=== PATIENT | male | born 1930 | race Caucasian/White ===

== ENCOUNTER 2016-09-12 22:13 | Observation (INO) ==
[2016-09-12] MEDS ORDERED: Ipratropium/Albuterol Neb 3 ML IH ONE (22:28)
--- NOTE | 2016-09-12 22:29 | Emergency Department Note ---
Disposition Clinical Impression: Renal insufficiency, COPD exacerbation, Gout, Peripheral edema Disposition: Admitted As Inpatient Condition: Good Time of Disposition: 00:37 (jerrell cespedes [facility]) SOB HPI - General Chief Complaint: ED Shortness of Breath/Dyspnea Stated Complaint: SOB, feet hurting Time Seen by Provider: 09/12/16 22:30 Source: patient Mode of arrival: ambulatory Limitations: no limitations Nursing Notes Reviewed: Yes Vital Signs Reviewed: Yes - History of Present Illness She comes in complaining of multitude of complaints one is complaining of shortness of breath unable to catch his breath states he feels like is drowning in his lungs he denies any blurred vision double vision loss vision as a numbness tingling weakness but that he states he feels like he is walking or marshmallows his Bilateral lower extremity edema in addition he has got a right great toe metatarsophalangeal joint that is red hot tenderness such swollen with little bit of red streaking up the leg he denies any knee or hip pain but has ankle pain and swelling and edema and swelling that extends up into the cast but it is symmetrical he denies any recent cough cold of flulike symptoms numbness tingling weakness recent weight gain or weight loss Pt Subjective Complaint: shortness of breath Onset (ago): hour(s) (4) Context: other (increase in leg edema) Severity: moderate Consistency/Duration: constant, gradually worsening Improves with: oxygen, rest Worsens with: exertion, movement Known history of: COPD, congestive heart failure Associated symptoms: Reports: cough, wheezing, orthopnea, lower extremity pain. Denies: chest pain, pain with inspiration, fever, sputum production, polyuria , polydipsia, parasthesias, palpitations, hemoptysis, diaphoresis, nausea/ vomiting, syncope, abdominal pain, rash, sense of impending doom Treatment prior to arrival: oxygen Cough present: No Sputum production: No - Related Data Home Medications Medication Instructions Recorded Confirmed Albuterol Sulfate [Albuterol 2 puff IH QID PRN 07/30/15 09/12/16 Inhaler] Apixaban [Eliquis] 5 mg PO DAILY 07/30/15 09/12/16 Aspirin [Adult Low Dose Aspirin EC] 81 mg PO DAILY 07/30/15 09/12/16 Duloxetine HCl [Cymbalta] 60 mg PO DAILY 07/30/15 09/12/16 Fluticasone Propionate [Flovent 250 mcg IH BID 07/30/15 09/12/16 Diskus] Glimepiride [Amaryl] 4 mg PO DAILY 07/30/15 09/12/16 Liraglutide [Victoza 2-Apollo] 0.6 mg SQ QDPC 07/30/15 09/12/16 Omeprazole [PriLOSEC] 20 mg PO DAILY 07/30/15 09/12/16 Tiotropium [Spiriva] 18 mcg IH QDPC 07/30/15 09/12/16 Furosemide [Lasix] 20 mg PO DAILY 09/12/16 09/12/16 Previous Rx's Medication Instructions Recorded Lisinopril [Zestril] 10 mg PO DAILY #30 tablet 08/01/15 Allergies Allergy/AdvReac Type Severity Reaction Status Date / Time metformin [From Glucophage] AdvReac See Verified 07/30/15 12:59 Comments All systems ED: reviewed and negative except as stated. Constitutional: Denies: chills, weakness Eyes: Denies: eye pain, eye discharge ENT ED: Denies: ear pain, throat pain Cardiovascular: Reports: dyspnea on exertion, orthopnea. Denies: chest pain, palpitations Respiratory: Reports: cough, wheezes Gastrointestinal: Denies: abdominal pain, nausea Genitourinary: Denies: urgency, dysuria, frequency Musculoskeletal: Denies: back pain, neck pain Integumentary: Denies: rash, abrasion, lesions Neurological: Denies: headache, weakness, numbness Psychiatric: Denies: anxiety, depression Endocrine: Denies: fatigue Hematological/Lymphatic: Denies: easy bleeding Allergic/Immunologic: Denies: facial swelling Past Medical History - Past Medical History Attestation: Yes The following information was validated with the patient. Source: patient, old records reviewed, nursing notes reviewed Medical history: Reports: arthritis, atrial fibrillation, CHF, COPD, diabetes, hyperlipidemia, hypertension, migraine Surgical history: Reports: cholecystectomy Psychiatric history: Reports: no psych history - Social History Smoking Status: Former smoker Smokeless Tobacco Status: No Alcohol use: Reports: none Drug use: Reports: none Physical Exam - General Limitations: no limitations General appearance: alert, in no apparent distress, obese, other (Jovial) - Head Head exam: atraumatic, normocephalic, normal inspection - Eye Eye exam: Present: normal appearance, PERRL, EOMI - ENT ENT exam: normal exam, normal oropharynx, mucous membranes moist, normal external ear exam - Neck Neck exam: Present: normal inspection, full ROM, trachea midline - Chest Chest inspection: Present: normal inspection, symmetric chest wall rise - Respiratory Respiratory exam: Present: normal lung sounds bilaterally, wheezes, prolonged expiratory phase - Cardiovascular Cardiovascular exam: Present: regular rate, normal rhythm, normal heart sounds - Abdominal Exam Abdominal exam: Present: soft, Non-Tender, normal bowel sounds. Absent: mass, pulsatile mass - Expanded Upper Extremity Exam Shoulder exam: Present: normal inspection, full ROM Arm exam: Present: normal inspection, full ROM Elbow exam: Present: normal inspection, full ROM Forearm/Wrist exam: Present: normal inspection, full ROM Hand exam: Present: normal inspection, full ROM Neurosensory exam: Normal: radial nerve, ulnar nerve, median nerve Vascular exam: Normal: capillary refill, radial pulse, ulnar pulse - Expanded Lower Extremity Exam Hip/Pelvis exam: Present: normal inspection, full ROM Upper leg exam: Present: normal inspection, full ROM Knee exam: Present: normal inspection, full ROM Lower leg exam: Present: normal inspection, full ROM, swelling Ankle exam: Present: normal inspection, full ROM, swelling Foot/toe exam: Present: normal inspection, full ROM, swelling 1 - RED hot swollen joint but streaking noted towards and stopping at the ankle from this region 2 - biLateral lower extremity edema 2-3+ pitting Neurovascular/Tendon exam: Absent: motor deficit, sensory deficit, tendon deficit - Back Exam Back exam: Present: normal inspection, full ROM. Absent: muscle spasm - Neurological Exam Neurological exam: Present: alert, oriented X3, CN II-XII intact - Psychiatric Psychiatric exam: Present: normal affect, normal mood - Skin Skin exam: Present: warm, dry, intact, normal color Course Course Narrative: he presents to the emergency room his having difficulty ambulating Hagiank did labs to make sure he did not have congestive heart failure as well as the possible ability of him having gout because of all isolated in the great toe with the laboratory results having come back he is artery received Indocin and some Solu-Medrol which will help both with the COPD as well as with the gout but will also have given him an aerosol treatment the patient showing some improvement will give him some additional [place] admitting for observation and give him a dose of IV antibiotics because the little bit of cellulitis developing in the lower extremities admitted for observation service of Dr. Grey Vital Signs Temperature 99.9 F H 09/12/16 22:16 Pulse Rate 69 09/12/16 22:16 Respiratory Rate 36 09/12/16 22:16 Blood Pressure 224/78 09/12/16 22:16 O2 Sat by Pulse Oximetry 92 L 09/12/16 22:16 Temperature 98.6 F 09/13/16 06:41 Pulse Rate 60 09/13/16 06:41 Respiratory Rate 16 09/13/16 06:41 Blood Pressure 168/67 09/13/16 06:41 O2 Sat by Pulse Oximetry 97 09/13/16 06:41 Oxygen Delivery Oxygen Delivery Nasal Cannula Shortness of Breath/Dyspnea - [facility] Narrative Medical decision making narrative: gout periperal edema celulitis chf - Differential Diagnosis Likely: acute exacerbation of chronic obstructive airways disease - Medical Records Medical records reviewed: Yes I reviewed the patient's medical records. - Lab Data Lab results reviewed: Yes I reviewed the patient's lab results. Result diagrams: 09/13/16 04:52 09/13/16 04:52 Lab Results 09/12/16 09/12/16 09/12/16 Range/Units 22:51 22:51 22:51 WBC 8.7 (4.3-11.1) K/mcL RBC 4.11 L (4.19-5.50) M/mcL Hgb 12.7 L (12.9-16.9) g/dL Hct 37.3 L (37.5-50.1) % MCV 90.8 (83.0-100.0) fL MCH 30.9 (28.0-33.3) pg MCHC 34.0 (31.6-35.5) g/dL RDW 13.0 (11.5-14.5) % Plt Count 294 (140-400) K/mcL MPV 11.5 (9.4-12.4) fL Immature Gran % 0.3 (0-4) % Seg Neutrophils % 74.2 % Lymphocytes % 14.3 % Monocytes % 8.7 % Eosinophils % 2.2 % Basophils % 0.3 % Neutrophils # 6.4 (1.6-8.9) K/mcL Lymphocytes # 1.2 (0.6-4.6) K/mcL Monocytes # 0.8 (0.0-1.3) K/mcL Eosinophils # 0.2 (0.0-0.6) K/mcL Basophils # 0.0 (0.0-0.2) K/mcL Platelet Estimate Normal (Normal) Large Platelets Present A (Not Present) PT 15.0 H (9.4-12.1) Seconds INR 1.4 APTT 35.8 (26.0-36.0) Seconds Sodium 139 (136-145) mEq/L Potassium 4.2 (3.5-4.5) mEq/L Chloride 98 (98-109) mEq/L Carbon Dioxide 29 (19-29) mEq/L BUN 16 (8-26) mg/dL Creatinine 1.41 H (0.72-1.25) mg/dL Est GFR ( Amer) 58 L (> 60) Est GFR (Non-Af Amer) 48 L (> 60) BUN/Creatinine Ratio 11 (6-26) Glucose 208 H (70-99) mg/dL Calculated Osmolality 295 (280-300) Uric Acid 7.9 H (3.5-7.2) mg/dL Calcium 8.9 (8.6-10.8) mg/dL Troponin I (0-0.03) ng/mL B-Natriuretic Peptide (0-100) pg/mL 09/12/16 09/12/16 Range/Units 22:51 22:51 WBC (4.3-11.1) K/mcL RBC (4.19-5.50) M/mcL Hgb (12.9-16.9) g/dL Hct (37.5-50.1) % MCV (83.0-100.0) fL MCH (28.0-33.3) pg MCHC (31.6-35.5) g/dL RDW (11.5-14.5) % Plt Count (140-400) K/mcL MPV (9.4-12.4) fL Immature Gran % (0-4) % Seg Neutrophils % % Lymphocytes % % Monocytes % % Eosinophils % % Basophils % % Neutrophils # (1.6-8.9) K/mcL Lymphocytes # (0.6-4.6) K/mcL Monocytes # (0.0-1.3) K/mcL Eosinophils # (0.0-0.6) K/mcL Basophils # (0.0-0.2) K/mcL Platelet Estimate (Normal) Large Platelets (Not Present) PT (9.4-12.1) Seconds INR APTT (26.0-36.0) Seconds Sodium (136-145) mEq/L Potassium (3.5-4.5) mEq/L Chloride (98-109) mEq/L Carbon Dioxide (19-29) mEq/L BUN (8-26) mg/dL Creatinine (0.72-1.25) mg/dL Est GFR ( Amer) (> 60) Est GFR (Non-Af Amer) (> 60) BUN/Creatinine Ratio (6-26) Glucose (70-99) mg/dL Calculated Osmolality (280-300) Uric Acid (3.5-7.2) mg/dL Calcium (8.6-10.8) mg/dL Troponin I 0.02 (0-0.03) ng/mL B-Natriuretic Peptide 119 H (0-100) pg/mL - Radiology Data Radiology results reviewed: Yes I reviewed the patient's radiology results. ITS Impressions Chest X-Ray 09/12/16 22:27 IMPRESSION: Stable exam. D/ / Hamilton Romero MD / Hamilton Romero MD Interpreting Provider: Hamilton Romero MD - EKG Data EKG attestation: Yes I reviewed and interpreted this EKG. EKG results narrative: Sinus rhythm nonspecific T-wave rate 60 2PR 132 uterus 90 QT 397 [place] II Critical Care Time Critical Care Time: No
[2016-09-12 22:56] LABS: Basophils % 0.3 %; Eosinophils # 0.2 K/mcL (0.0-0.6); Eosinophils % 2.2 %; Hematocrit 37.3 % (37.5-50.1); Hemoglobin 12.7 g/dL (12.9-16.9); Immature Granulocytes % 0.3 % (0-4); Lymphocytes # 1.2 K/mcL (0.6-4.6); Lymphocytes % 14.3 %; Mean Corpuscular Hemoglobin 30.9 pg (28.0-33.3); Mean Corpuscular Volume 90.8 fL (83.0-100.0); Mean Platelet Volume 11.5 fL (9.4-12.4); Monocytes # 0.8 K/mcL (0.0-1.3); Monocytes % 8.7 %; Neutrophils # 6.4 K/mcL (1.6-8.9); Platelet Count 294 K/mcL (140-400); Red Blood Count 4.11 M/mcL (4.19-5.50); Segmented Neutrophils % 74.2 %
[2016-09-12 23:01] LABS: INR 1.4
[2016-09-12 23:04] LABS: Activated Partial Thrombo Time 35.8 Seconds (26.0-36.0)
[2016-09-12 23:30] LABS: Large Platelets Present (Not Present); Platelet Estimate Normal (Normal)
[2016-09-12 23:49] LABS: Calcium 8.9 mg/dL (8.6-10.8); Potassium 4.2 mEq/L (3.5-4.5); Uric Acid 7.9 mg/dL (3.5-7.2)
[2016-09-13] MEDS ORDERED: Ampicillin/Sulbactam 3,000 MG in 0.9 % Sodium Chloride Mini Bag 100 ML IVPB ONE (00:45)
[2016-09-13] MEDS ORDERED: *HR* HYDROcodone/Acet 5/325 mg TABLET PO PRN (01:22)
[2016-09-13] MEDS ORDERED: Ondansetron ODT 4 MG TAB.RAPDIS SL PRN (01:22)
[2016-09-13] MEDS ORDERED: Albuterol 2.5 MG/3 ML NEBULIZER IH PRN (01:22)
[2016-09-13] MEDS ORDERED: *HR* Dextrose 50 % in Water (Syg) 50 ML SYRINGE IVP PRN (01:22)
[2016-09-13] MEDS ORDERED: Dextrose Gel 15 GM PO PRN ×2 (01:22)
[2016-09-13] MEDS ORDERED: Indomethacin 25 MG CAPSULE PO PRN (01:22)
[2016-09-13] MEDS ORDERED: Naloxone 0.4 MG/ML INJ IVP PRN (01:22)
[2016-09-13] MEDS ORDERED: D5% in Water 1,000 ML IVC PRN (01:22)
[2016-09-13] MEDS: Ipratropium/Albuterol Neb 3 ML IH SCH ×2 (04:52→10:41)
[2016-09-13 05:33] LABS: Basophils % 0.4 %; Eosinophils # 0.2 K/mcL (0.0-0.6); Eosinophils % 1.9 %; Hematocrit 32.3 % (37.5-50.1); Immature Granulocytes % 0.4 % (0-4); Lymphocytes # 1.5 K/mcL (0.6-4.6); Lymphocytes % 18.9 %; Mean Corpuscular HGB Conc 34.1 g/dL (31.6-35.5); Mean Corpuscular Hemoglobin 30.6 pg (28.0-33.3); Mean Corpuscular Volume 89.7 fL (83.0-100.0); Mean Platelet Volume 11.4 fL (9.4-12.4); Monocytes # 0.9 K/mcL (0.0-1.3); Monocytes % 11.5 %; Neutrophils # 5.3 K/mcL (1.6-8.9); Platelet Count 252 K/mcL (140-400); Red Cell Distribution Width 12.7 % (11.5-14.5); Segmented Neutrophils % 66.9 %
[2016-09-13] MEDS: Ampicillin/Sulbactam 3,000 MG in 0.9 % Sodium Chloride Mini Bag 100 ML IVPB SCH ×3 (05:36→20:48)
[2016-09-13 05:40] LABS: INR 1.4; Prothrombin Time 15.4 Seconds (9.4-12.1)
[2016-09-13 05:43] LABS: Activated Partial Thrombo Time 32.3 Seconds (26.0-36.0)
[2016-09-13 05:56] LABS: BUN/Creatinine Ratio 12 (6-26); Blood Urea Nitrogen 15 mg/dL (8-26); Calcium 8.4 mg/dL (8.6-10.8); Carbon Dioxide 30 mEq/L (19-29); Chloride 102 mEq/L (98-109); Glucose 151 mg/dL (70-99); Magnesium 1.7 mg/dL (1.6-2.6); Osmolality,Calculated 292 (280-300); Phosphorous 2.3 mg/dL (2.3-4.7); Potassium 3.8 mEq/L (3.5-4.5); Sodium 139 mEq/L (136-145); eGFR For African Americans > 60 (> 60); eGFR For Non-African Americans 57 (> 60)
[2016-09-13] MEDS: Insulin LISPRO 300 UNITS/3 ML VIAL SQ SCH ×3 (07:33→16:52)
[2016-09-13] MEDS: Bumetanide 1 MG/4 ML VIAL IVP SCH ×2 (09:26→16:49)
[2016-09-13 14:39] LABS: Hemoglobin A1C 6.4 %
--- NOTE | 2016-09-13 15:31 | Internal Med History&Physical ---
Date of Encounter: 09/13/16 Time of Encounter: 14:55 Assessment and Plan (1) Gout Current visit: Yes Status: Acute He has been started on IV steroids through emergency room. I will give a dose of colchicine and indomethacin. Allopurinol will be started after the acute inflammation has lessened. Qualifiers: Gout site: toe Gout etiology: unspecified cause Laterality: unspecified laterality Chronicity: acute Qualified Code(s): M10.9 - Gout, unspecified (2) Acute exacerbation of chronic obstructive airways disease Current visit: No Status: Acute He has been started on IV steroids and IV antibiotics. His home regimen will generally be continued otherwise. Further workup be done as needed. (3) CKD (chronic kidney disease) stage 3, GFR 30-59 ml/min Current visit: No Status: Chronic Renal indices will be monitored. (4) Anemia Current visit: No Status: Chronic We will recheck anemia testing in a.m. Qualifiers: Anemia type: unspecified type Qualified Code(s): D64.9 - Anemia, unspecified (5) DM type 2 (diabetes mellitus, type 2) Current visit: Yes Status: Acute Hemoglobin A1c was acceptable at 6.4% today. Continue Amaryl, Victoza and lisinopril Qualifiers: Diabetes mellitus complication status: with kidney complications Diabetes mellitus complication detail: with chronic kidney disease Diabetes mellitus intermediate accountant insulin use: without intermediate accountant use Chronic kidney disease stage: stage 3 (moderate) Qualified Code(s): E11.22 - Type 2 diabetes mellitus with diabetic chronic kidney disease; N18.3 - Chronic kidney disease, stage 3 ( moderate) Internal Medicine - H&P: HPI Chief complaint: Right foot pain, dyspnea Admitted From: Home Plans for Post Hospital Care: Home History of present illness: Mr. Huston is a 86 year old male who came to emergency room stating he had worsening pain in his right foot over the last 3 days. He took Tylenol without relief. He denies any injuries. He also reported increased dyspnea over the past 24-48 hours. There was slight cough but no significant productivity. He was evaluated in emergency room and felt to have exacerbation of COPD and probable acute gout in the right first MTP joint. He was admitted to [facility] floor for ongoing care needs. He was hospitalized last at [facility] September 2015 with exacerbation of COPD. His respiratory history is significant for having smoked from age [age] up to 4 packs per day. He wears oxygen at bedtime and when necessary during the daytime. He has a diagnosis of KIKO but refuses CPAP. 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 His musk skeletal history is significant for DJD but no known previous gout or other bone joint or muscle disorders. Past Med Surg Social Fam HX - Past Medical History Medical history: arthritis, atrial fibrillation, CHF, COPD, diabetes, hyperlipidemia, hypertension, migraine Psychiatric history: no psych history - Past Surgical History Surgical History: cholecystectomy - Social History Smoking Status: Former smoker Smokeless Tobacco Status: No Alcohol use: none Drug use: none - Family History Mother Living Status: Hx Family Cardiac Disorders: Yes ([place]) Hx Family Endocrine Disorder: Yes (DM2) Internal Medicine - H&P: Meds Albuterol Sulfate [Albuterol Inhaler] 2 puff IH QID PRN 07/30/15 [History] Apixaban [Eliquis] 5 mg PO DAILY 07/30/15 [History] Aspirin [Adult Low Dose Aspirin EC] 81 mg PO DAILY 07/30/15 [History] Duloxetine HCl [Cymbalta] 60 mg PO DAILY 07/30/15 [History] Fluticasone Propionate [Flovent Diskus] 250 mcg IH BID 07/30/15 [History] Glimepiride [Amaryl] 4 mg PO DAILY 07/30/15 [History] Liraglutide [Victoza 2-Apollo] 0.6 mg SQ QDPC 07/30/15 [History] Omeprazole [PriLOSEC] 20 mg PO DAILY 07/30/15 [History] Tiotropium [Spiriva] 18 mcg IH QDPC 07/30/15 [History] Lisinopril [Zestril] 10 mg PO DAILY #30 tablet 08/01/15 [Rx] Furosemide [Lasix] 20 mg PO DAILY 09/12/16 [History] Allergies metformin [From Glucophage] Adverse Reaction (Verified 07/30/15 12:59) See Comments Reaction not known. All Systems PM: A 10-system review of systems was performed and is negative for pertinent findings except as documented above in the HPI. Review of systems: Gen.: His weight has been stable at approximately 106-108 kg kg since his November 2014 [facility] hospitalization. Cardiovascular: He has a history of hypertension. An echocardiogram done 2013 showed diastolic dysfunction but LVEF 55%. There was mild to moderate aortic regurgitation. He claims he had a heart catheter and stress test in 2008 without further intervention recommended. He denies DVT or pulmonary embolus. Respiratory: As per history of present illness GI: He has had remote cholecystectomy. He denies disorders of his liver or exocrine pancreas. : No history of hematuria dysuria or kidney stones. He has CKD stage III and follows with a [place] [facility]. Neurologic: He denies large distribution strokes or seizures. Endocrine: He was diagnosed with DM 2 approximately 2004. He has hyperlipidemia but no known thyroid disease. Hematology/oncology: He denies blood disorders or cancers. He was found to have anemia on emergency room lab work. Anemia testing in the past has showed no factor deficiency . Psychiatric: He denies anxiety depression or other mental health issues Musk skeletal: As per history of present illness - Constitutional Vitals: Temp Pulse Resp BP Pulse Ox 98.0 F 64 16 163/67 96 09/13/16 14:52 09/13/16 14:52 09/13/16 14:52 09/13/16 14:52 09/13/16 14:52 Exam: Gen.: He is a well-developed well-nourished male lying in bed who appears in no severe distress at present time. HEENT: Head is atraumatic and normocephalic. Eyes: EOMI. There is no scleral icterus. Mouth: Mucosa is moist. Neck: Supple and nontender. There is no thyromegaly or adenopathy noted. Heart: Regular without murmurs gallops or ectopics Lungs: No wheezes or crackles are heard. Abdomen: Soft and nontender. No masses or guarding noted. Extremities: There is no cyanosis edema or clubbing noted. Dorsalis pedis and posttibial pulses are 1-2 over 2 bilaterally. He has erythema and pain of the right first MTP joint. There is very minimal erythema but slight pain present at the left first MTP joint. He has mild DJD changes of his hands. Neurologic: Mental status: He is talkative and a good historian. Cranial nerves : Smile is symmetric. Forehead wrinkles bilaterally. Tongue protrudes midline. EOMI. Motor: There is no pronator drift. Cerebellar: Finger to nose is intact bilaterally. Skin: Warm and dry Internal Med - H&P Results - Labs CBC & Chem 7: 09/13/16 04:52 09/13/16 04:52 Labs: Short CBC 09/13/16 Range/Units 04:52 WBC 8.0 (4.3-11.1) K/mcL Hgb 11.0 L D (12.9-16.9) g/dL Hct 32.3 L (37.5-50.1) % Plt Count 252 (140-400) K/mcL Neutrophils # 5.3 (1.6-8.9) K/mcL BMP 09/13/16 04:52 Sodium 139 Potassium 3.8 Chloride 102 Carbon Dioxide 30 H BUN 15 Creatinine 1.21 Glucose 151 H Calcium 8.4 L
[2016-09-13] MEDS: PredniSONE 20 MG TABLET PO SCH (16:50)
[2016-09-13] MEDS ORDERED: Colchicine 0.6 MG TABLET PO ONE (17:00)
[2016-09-13] MEDS ORDERED: Indomethacin 25 MG CAPSULE PO ONE (17:00)
[2016-09-13] MEDS ORDERED: Insulin LISPRO 300 UNITS/3 ML VIAL SQ SCH (22:45)
[2016-09-14] MEDS: Ampicillin/Sulbactam 3,000 MG in 0.9 % Sodium Chloride Mini Bag 100 ML IVPB SCH ×2 (02:15→06:47)
[2016-09-14 05:54] LABS: Basophils % 0.1 %; Hematocrit 33.1 % (37.5-50.1); Hemoglobin 11.3 g/dL (12.9-16.9); Immature Granulocytes % 0.5 % (0-4); Lymphocytes # 0.7 K/mcL (0.6-4.6); Lymphocytes % 7.3 %; Mean Corpuscular HGB Conc 34.1 g/dL (31.6-35.5); Mean Corpuscular Hemoglobin 30.4 pg (28.0-33.3); Mean Platelet Volume 11.5 fL (9.4-12.4); Monocytes # 0.8 K/mcL (0.0-1.3); Monocytes % 8.7 %; Neutrophils # 7.6 K/mcL (1.6-8.9); Platelet Count 261 K/mcL (140-400); Red Blood Count 3.72 M/mcL (4.19-5.50); Red Cell Distribution Width 12.6 % (11.5-14.5); Segmented Neutrophils % 83.4 %
[2016-09-14 06:15] LABS: Alanine Aminotransferase 11 Units/L (0-55); Albumin 2.7 g/dL (3.5-5.0); Albumin/Globulin Ratio 0.8 (1.1-2.2); Alkaline Phosphatase 70 Units/L (38-126); Aspartate Amino Transferase 11 Units/L (5-34); BUN/Creatinine Ratio 19 (6-26); Bilirubin,Total 0.2 mg/dL (0.2-1.2); Blood Urea Nitrogen 24 mg/dL (8-26); Calcium 8.9 mg/dL (8.6-10.8); Carbon Dioxide 29 mEq/L (19-29); Chloride 98 mEq/L (98-109); Globulin 3.4 g/dL (2.4-3.5); Glucose 299 mg/dL (70-99); Osmolality,Calculated 299 (280-300); Potassium 4.5 mEq/L (3.5-4.5); Sodium 137 mEq/L (136-145); Total Protein 6.1 g/dL (6.0-8.3); eGFR For African Americans > 60 (> 60); eGFR For Non-African Americans 54 (> 60)
[2016-09-14 08:41] VITALS: BP 127/48
[2016-09-14] MEDS: PredniSONE 20 MG TABLET PO SCH (09:13)
[2016-09-14] MEDS: Bumetanide 1 MG/4 ML VIAL IVP SCH (09:13)
[2016-09-14] MEDS: Insulin LISPRO 300 UNITS/3 ML VIAL SQ SCH (09:14)
[2016-09-14] MEDS ORDERED: Tiotropium 18 MCG inhalation IH SCH (10:00)
--- NOTE | 2016-09-14 10:23 | Discharge Summary ---
Date of Encounter: 09/14/16 Time of Encounter: 10:05 - Discharge Diagnosis (1) Gout Priority: Primary Status: Acute Qualifiers: Gout site: toe Gout etiology: unspecified cause Laterality: unspecified laterality Chronicity: acute Qualified Code(s): M10.9 - Gout, unspecified (2) Acute exacerbation of chronic obstructive airways disease Priority: Secondary Status: Acute (3) CKD (chronic kidney disease) stage 3, GFR 30-59 ml/min Priority: Secondary Status: Chronic (4) Anemia Priority: Secondary Status: Chronic Qualifiers: Anemia type: unspecified type Qualified Code(s): D64.9 - Anemia, unspecified (5) DM type 2 (diabetes mellitus, type 2) Priority: Secondary Status: Chronic Qualifiers: Diabetes mellitus complication status: with kidney complications Diabetes mellitus complication detail: with chronic kidney disease Diabetes mellitus keno terminal operator insulin use: without half-way use Chronic kidney disease stage: stage 3 (moderate) Qualified Code(s): E11.22 - Type 2 diabetes mellitus with diabetic chronic kidney disease; N18.3 - Chronic kidney disease, stage 3 ( moderate) - Discharge Medications Prescriptions: Allopurinol [Zyloprim 100 MG] 200 mg PO DAILY #60 tablet Amoxicillin/Clavulanate [Augmentin] 875 mg PO BIDWM #4 tablet CloNIDine HCl [Clonidine HCl] 0.2 mg PO Q8H #90 tab Lactobacillus [Culturelle] 1 each PO BID #4 cap.sprink PredniSONE 20 mg PO BIDWM #6 tablet Home Medications: Albuterol Sulfate [Albuterol Inhaler] 2 puff IH QID PRN 07/30/15 [History] Apixaban [Eliquis] 5 mg PO DAILY 07/30/15 [History] Aspirin [Adult Low Dose Aspirin EC] 81 mg PO DAILY 07/30/15 [History] Duloxetine HCl [Cymbalta] 60 mg PO DAILY 07/30/15 [History] Fluticasone Propionate [Flovent Diskus] 250 mcg IH BID 07/30/15 [History] Glimepiride [Amaryl] 4 mg PO DAILY 07/30/15 [History] Liraglutide [Victoza 2-Apollo] 0.6 mg SQ QDPC 07/30/15 [History] Omeprazole [PriLOSEC] 20 mg PO DAILY 07/30/15 [History] Tiotropium [Spiriva] 18 mcg IH QDPC 07/30/15 [History] Lisinopril [Zestril] 10 mg PO DAILY #30 tablet 08/01/15 [Rx] Furosemide [Lasix] 20 mg PO DAILY 09/12/16 [History] Allopurinol [Zyloprim 100 MG] 200 mg PO DAILY #60 tablet 09/14/16 [Rx] Amoxicillin/Clavulanate [Augmentin] 875 mg PO BIDWM #4 tablet 09/14/16 [Rx] CloNIDine HCl [Clonidine HCl] 0.2 mg PO Q8H #90 tab 09/14/16 [Rx] Lactobacillus [Culturelle] 1 each PO BID #4 cap.sprink 09/14/16 [Rx] PredniSONE 20 mg PO BIDWM #6 tablet 09/14/16 [Rx] Allergies/Adverse Reactions: Allergies metformin [From Glucophage] Adverse Reaction (Verified 07/30/15 12:59) See Comments Reaction not known. Date of admission: 09/13/16 00:58 Primary care physician: Phill Burkett DO - Patient Status Disposition: Home, Self-Care Condition: Good Overall status at discharge: patient is progressing back to baseline - Discharge Instructions Follow Up With: Phill Burkett DO [Primary Care Provider] - 1 week - Diet and Activity Activity: resume usual activities as tolerated Diet: advance to your usual diet Hospital course: Mr. Huston is a 86 year old male who came to emergency room stating he had worsening pain in his right foot over the last 3 days. He took Tylenol without relief. He denies any injuries. He also reported increased dyspnea over the past 24-48 hours. There was slight cough but no significant productivity. He was evaluated in emergency room and felt to have exacerbation of COPD and probable acute gout in the right first MTP joint. He was admitted to [facility] for ongoing care needs. Initial orders were written by the emergency room physician. I saw him on September 13 and performed the history and physical. He was given IV Solu-Medrol in emergency room for exacerbation of COPD and gout. I changed him to oral prednisone. I gave him a dose of colchicine and indomethacin. His right first MTP joint showed significant improvement when I saw him September 14. He was able to ambulate and felt stable for discharge home. He will continue with prednisone for 3 additional days and begin allopurinol 200 mg daily. His breathing returned to baseline by September 14. He will continue with 2 additional days of antibiotic and probiotic upon discharge. Anemia testing was ordered with results pending at time of this dictation. He will be discharged home and follow with Dr. Burkett within 1 week. - Time Spent with Patient Total time spent providing and/or coordinating discharge services: - Constitutional Vitals: Temp Pulse Resp BP Pulse Ox 97.8 F 48 18 127/48 97 09/14/16 06:50 09/14/16 06:50 09/14/16 06:50 09/14/16 06:50 09/14/16 06:50
[2016-09-14 17:27] LABS: % Iron Saturation 15 % (20-55); Iron 35 mcg/dL (65-175); Transferrin 172 mg/dL (174-364)
[2016-09-14 17:47] LABS: Ferritin 83 ng/ml (22-275)
[2016-09-14 18:01] LABS: Folate 11.4 ng/mL (7.0-31.4)
--- NOTE | 2016-09-14 21:44 | Electrocardiograph Report ---
[address] [address] Test Date: 2016-09-12 Pat Name: Chun Huston Department: [id number] Room: [facility] Gender: M Mid Level Game Designer: [id number] : 1930 Requested By: Perri Pate Order Number: [id number] Reading MD: Christiano Richardson MD Measurements Intervals [place] Rate: 62 P: 54 NE: 132 QRS: 2 QRSD: 92 T: 56 QT: 397 QTc: 402 Interpretive Statements SINUS RHYTHM WITH SINUS ARRHYTHMIA Electronically Signed On 09-14-2016 21:43:09 EDT by Christiano Richardson MD
== END 2016-09-14 12:00 | disposition home or self-care (01) ==
LOC: INPPIK 22:13 → EMEROOPIK 22:13 → INPPIK 09-13 01:24
PROVIDERS: ADMIT Internal Medicine; ATTEND Internal Medicine

== ENCOUNTER 2016-09-19 19:35 | Inpatient (IN) ==
[2016-09-19] MEDS ORDERED: *HR* Morphine 2 MG/ML SYRINGE IVP ONE (19:53)
[2016-09-19] MEDS ORDERED: Ondansetron 4 MG/2 ML VIAL IVP ONE (19:53)
--- NOTE | 2016-09-19 19:58 | Emergency Department Note ---
Disposition Clinical Impression: Atrial fibrillation with RVR, Polyarthralgia Disposition: Admitted As Inpatient Condition: Good Time of Disposition: 22:35 Extremity Problem HPI - General Chief complaint: ED Extremity Problem,Nontraumatic Stated complaint: lower extremity pain Time Seen by Provider: 09/19/16 19:51 Source: EMS Mode of arrival: EMS Limitations: no limitations Nursing Notes Reviewed: Yes Vital Signs Reviewed: Yes - History of Present Illness HPI Narrative: 86-year-old white male presents via life squad complaining of bilateral knee and foot pain. He states it been going on for several days. He was actually here on 09/12/16 with leg pain and shortness of breath. He was admitted as an observation and discharged on the . He states that it getting worse. It reached a point where he can hardly bear weight. The pain is in both knees and both feet just proximal to the toes. He is chronically short of breath on 2 L of oxygen. He states today he is no more short of breath than usual. He is noted to have a rapid heart rate and is in atrial fibrillation. He has a history of atrial fibrillation. He denies palpitations or chest pain at this time. Pt Subjective Complaint: extremity pain Onset (ago): day(s) Consistency: constant Injury Location: left, right, lower extremity Pain Scale: 0 Quality: burning, sharp Radiation: none Improves with: nothing Worsens with: weight bearing Associated symptoms: Reports: swelling Context: history of gout - Related Data Home Medications Medication Instructions Recorded Confirmed Albuterol Sulfate [Albuterol 2 puff IH QID PRN 07/30/15 09/19/16 Inhaler] Apixaban [Eliquis] 2.5 mg PO BID 07/30/15 09/19/16 Aspirin [Adult Low Dose Aspirin EC] 81 mg PO DAILY 07/30/15 09/19/16 Duloxetine HCl [Cymbalta] 60 mg PO DAILY 07/30/15 09/19/16 Fluticasone Propionate [Flovent 250 mcg IH BID 07/30/15 09/19/16 Diskus] Glimepiride [Amaryl] 4 mg PO DAILY 07/30/15 09/19/16 Liraglutide [Victoza 2-Apollo] 0.6 mg SQ QDPC 07/30/15 09/19/16 Omeprazole [PriLOSEC] 20 mg PO DAILY 07/30/15 09/19/16 Tiotropium [Spiriva] 18 mcg IH QDPC 07/30/15 09/19/16 Furosemide [Lasix] 20 mg PO DAILY 09/12/16 09/19/16 Atorvastatin [Lipitor] 20 mg PO HS 09/19/16 09/19/16 Carvedilol [Coreg] 25 mg PO BID 09/19/16 09/19/16 Cholecalciferol (Vitamin D3) 1,000 unit PO QAM 09/19/16 09/19/16 [Vitamin D] Docusate [Colace] 100 mg PO DAILY 09/19/16 09/19/16 Dronedarone [Multaq] 400 mg PO BIDWM 09/19/16 09/19/16 Gabapentin [Neurontin] 100 mg PO TID 09/19/16 09/19/16 Potassium Chloride [K-Tab ER] 20 meq PO BID 09/19/16 09/19/16 Previous Rx's Medication Instructions Recorded Lisinopril [Zestril] 10 mg PO DAILY #30 tablet 08/01/15 Allopurinol [Zyloprim 100 MG] 200 mg PO DAILY #60 tablet 09/14/16 CloNIDine HCl [Clonidine HCl] 0.2 mg PO Q8H #90 tab 09/14/16 Allergies Allergy/AdvReac Type Severity Reaction Status Date / Time metformin [From Glucophage] AdvReac See Verified 09/19/16 19:39 Comments All systems ED: reviewed and negative except as stated. Constitutional: Denies: fever, chills Cardiovascular: Reports: dyspnea on exertion (Chronic, no worse than usual.). Denies: chest pain, palpitations Respiratory: Reports: cough (At his baseline, nonproductive.), dyspnea (Chronic , no worse than usual.). Denies: sputum production Gastrointestinal: Denies: abdominal pain, nausea, vomiting, diarrhea Genitourinary: Denies: urgency, dysuria Musculoskeletal: Reports: as per HPI Neurological: Denies: weakness, numbness Past Medical History - Past Medical History Medical history: Reports: arthritis, atrial fibrillation, CHF, COPD, diabetes, hyperlipidemia, hypertension, migraine Surgical history: Reports: cholecystectomy Psychiatric history: Reports: no psych history - Social History Smoking Status: Former smoker Smokeless Tobacco Status: No Alcohol use: Reports: none Drug use: Reports: none Physical Exam - General Limitations: no limitations General appearance: alert, in no apparent distress - Head Head exam: atraumatic, normocephalic - Eye Eye exam: Present: PERRL, EOMI - ENT ENT exam: normal oropharynx - Neck Neck exam: Present: normal inspection, full ROM, trachea midline. Absent: lymphadenopathy - Respiratory Respiratory exam: Present: wheezes (Rare bilateral expiratory), prolonged expiratory phase - Cardiovascular Cardiovascular exam: Present: tachycardia, irregular rhythm. Absent: systolic murmur, diastolic murmur, gallop - Abdominal Exam Abdominal exam: Present: soft, Non-Tender, normal bowel sounds, other (Obese). Absent: organomegaly, mass - Extremities Exam Extremities exam: Present: tenderness (Tenderness of the distal metatarsal metatarsophalangeal joints across both feet, right greater than left. There is some mild swelling in the distal left foot with some minimal erythema. No swelling in the right foot. The ankles are nontender without swelling.) - Neurological Exam Neurological exam: Present: alert, oriented X3. Absent: motor sensory deficit - Psychiatric Psychiatric exam: Present: normal affect, normal mood - Skin Skin exam: Present: warm, dry, intact Course - Reevaluation(s) Reevaluation #1: His heart rate is been in the 80s and 90s on the Cardizem. His blood pressures intermittently dropped into the 90s systolic. I am giving him a saline bolus at this time. I spoke with Dr. Grey. We will point to give him 0.5 mg of digoxin IV. If his rate continues to be controlled we will hold the Cardizem. Dr. Grey accepts the patient for observation admission. Time: 22:32 Vital Signs Temperature 99.1 F 09/19/16 19:37 Pulse Rate 127 09/19/16 19:37 Respiratory Rate 14 09/19/16 19:37 Blood Pressure 103/57 09/19/16 19:37 O2 Sat by Pulse Oximetry 95 09/19/16 19:37 Temperature 98.4 F 09/19/16 23:47 Pulse Rate 73 09/20/16 01:32 Respiratory Rate 16 09/20/16 01:32 Blood Pressure 116/53 09/20/16 01:32 O2 Sat by Pulse Oximetry 98 09/20/16 00:10 Oxygen Delivery Oxygen Delivery Nasal Cannula Extremity Problem, Nontraumati - MDM Narrative Medical decision making narrative: Differential for knee and foot pain includes but is not limited to gout, degenerative joint disease, sprain, fracture, cellulitis. Differential for rapid heart rate includes but is not limited to sinus tachycardia, atrial fibrillation with RVR, atrial flutter with RVR, sinus tach with PACs, multifocal atrial tachycardia. Patient is in atrial fibrillation with RVR. His rate is improved with Cardizem. He has a history of paroxysmal atrial fibrillation. He was in sinus rhythm a week ago. He will be admitted to be monitored and further treatment of his atrial fibrillation. He is already on Grover toe. We will continue treating his joint pain, which is possibly gout versus degenerative joint disease. - Medical Records Medical records reviewed: Yes I reviewed the patient's medical records. The patient's old records were reviewed. He does have a history of atrial fibrillation and is currently on Sharath toe. In particular his last visit on , at which time he presented with bilateral lower extremity pain. He was diagnosed with gout as well as an exacerbation of his COPD. At the time of that visit he was in a normal sinus rhythm. - Lab Data Lab results reviewed: Yes I reviewed the patient's lab results. Result diagrams: 09/19/16 20:06 09/19/16 20:06 Lab Results 09/19/16 09/19/16 09/19/16 Range/Units 20:06 20:06 20:06 WBC 9.2 (4.3-11.1) K/mcL RBC 3.89 L (4.19-5.50) M/mcL Hgb 12.0 L (12.9-16.9) g/dL Hct 35.9 L (37.5-50.1) % MCV 92.3 (83.0-100.0) fL MCH 30.8 (28.0-33.3) pg MCHC 33.4 (31.6-35.5) g/dL RDW 13.0 (11.5-14.5) % Plt Count 259 (140-400) K/mcL MPV 10.5 (9.4-12.4) fL Immature Gran % 0.9 (0-4) % Seg Neutrophils % 68.9 % Lymphocytes % 16.8 % Monocytes % 10.6 % Eosinophils % 2.6 % Basophils % 0.2 % Neutrophils # 6.3 (1.6-8.9) K/mcL Lymphocytes # 1.5 (0.6-4.6) K/mcL Monocytes # 1.0 (0.0-1.3) K/mcL Eosinophils # 0.2 (0.0-0.6) K/mcL Basophils # 0.0 (0.0-0.2) K/mcL Sodium 140 (136-145) mEq/L Potassium 4.1 (3.5-4.5) mEq/L Chloride 102 (98-109) mEq/L Carbon Dioxide 27 (19-29) mEq/L BUN 28 H (8-26) mg/dL Creatinine 1.28 H (0.72-1.25) mg/dL Est GFR ( Amer) > 60 (> 60) Est GFR (Non-Af Amer) 53 L (> 60) BUN/Creatinine Ratio 22 (6-26) Glucose 56 L (70-99) mg/dL Calculated Osmolality 293 (280-300) Uric Acid 5.8 (3.5-7.2) mg/dL Calcium 7.9 L (8.6-10.8) mg/dL Troponin I 0.01 (0-0.03) ng/mL B-Natriuretic Peptide (0-100) pg/mL 09/19/16 09/19/16 Range/Units 20:06 21:01 WBC (4.3-11.1) K/mcL RBC (4.19-5.50) M/mcL Hgb (12.9-16.9) g/dL Hct (37.5-50.1) % MCV (83.0-100.0) fL MCH (28.0-33.3) pg MCHC (31.6-35.5) g/dL RDW (11.5-14.5) % Plt Count (140-400) K/mcL MPV (9.4-12.4) fL Immature Gran % (0-4) % Seg Neutrophils % % Lymphocytes % % Monocytes % % Eosinophils % % Basophils % % Neutrophils # (1.6-8.9) K/mcL Lymphocytes # (0.6-4.6) K/mcL Monocytes # (0.0-1.3) K/mcL Eosinophils # (0.0-0.6) K/mcL Basophils # (0.0-0.2) K/mcL Sodium (136-145) mEq/L Potassium (3.5-4.5) mEq/L Chloride (98-109) mEq/L Carbon Dioxide (19-29) mEq/L BUN (8-26) mg/dL Creatinine (0.72-1.25) mg/dL Est GFR ( Amer) (> 60) Est GFR (Non-Af Amer) (> 60) BUN/Creatinine Ratio (6-26) Glucose (70-99) mg/dL Calculated Osmolality (280-300) Uric Acid (3.5-7.2) mg/dL Calcium (8.6-10.8) mg/dL Troponin I 0.03 (0-0.03) ng/mL B-Natriuretic Peptide 369 H (0-100) pg/mL - Radiology Data Radiology results reviewed: Yes I reviewed the patient's radiology results. ITS Impressions Chest X-Ray 09/19/16 19:53 IMPRESSION: 1. No acute abnormality. D/ / Xavier Addison MD / Xavier Addison MD Interpreting Provider: Xavier Addison MD - EKG Data EKG attestation: Yes I reviewed and interpreted this EKG. EKG results narrative: Atrial fibrillation with RVR, rate of 112. Nonspecific ST-T changes. This is compared to a tracing dated 09/12/16, at which time he is in a sinus rhythm with a rate of 62 with an occasional supraventricular immature contraction. His monitor shows atrial fibrillation with a rate between 110 and 135. Critical Care Time Critical Care Time: Yes Total Critical Care Time: 30 Attestation: Critical care time includes my initial evaluation,, multiple re-evaluations, review of laboratory, EKG, x-rays, consultation with the hospitalist for admission.
[2016-09-19 20:13] LABS: Basophils % 0.2 %; Eosinophils # 0.2 K/mcL (0.0-0.6); Eosinophils % 2.6 %; Hematocrit 35.9 % (37.5-50.1); Immature Granulocytes % 0.9 % (0-4); Lymphocytes # 1.5 K/mcL (0.6-4.6); Lymphocytes % 16.8 %; Mean Corpuscular HGB Conc 33.4 g/dL (31.6-35.5); Mean Corpuscular Hemoglobin 30.8 pg (28.0-33.3); Mean Corpuscular Volume 92.3 fL (83.0-100.0); Mean Platelet Volume 10.5 fL (9.4-12.4); Monocytes % 10.6 %; Neutrophils # 6.3 K/mcL (1.6-8.9); Platelet Count 259 K/mcL (140-400); Red Blood Count 3.89 M/mcL (4.19-5.50); Segmented Neutrophils % 68.9 %
[2016-09-19 20:31] LABS: BUN/Creatinine Ratio 22 (6-26); Blood Urea Nitrogen 28 mg/dL (8-26); Calcium 7.9 mg/dL (8.6-10.8); Carbon Dioxide 27 mEq/L (19-29); Chloride 102 mEq/L (98-109); Glucose 56 mg/dL (70-99); Osmolality,Calculated 293 (280-300); Potassium 4.1 mEq/L (3.5-4.5); Sodium 140 mEq/L (136-145); Uric Acid 5.8 mg/dL (3.5-7.2); eGFR For African Americans > 60 (> 60); eGFR For Non-African Americans 53 (> 60)
[2016-09-19] MEDS ORDERED: 0.9 % Sodium Chloride 500 ML IVC ONE (21:40)
[2016-09-19] MEDS ORDERED: *HR* Digoxin 0.5 MG/2 ML AMPUL IVP ONE (22:32)
[2016-09-19] MEDS ORDERED: Naloxone 0.4 MG/ML INJ IVP PRN (23:25)
[2016-09-19] MEDS ORDERED: D5 IVC SCH (23:25)
[2016-09-19] MEDS ORDERED: DILTIAZEM IVC SCH (23:25)
[2016-09-19] MEDS ORDERED: WATER IVC SCH (23:25)
[2016-09-20] MEDS: Ipratropium/Albuterol Neb 3 ML IH SCH ×4 (00:09→12:18)
[2016-09-20] MEDS: Beclomethasone 80mcg MDI IH SCH ×2 (08:57→22:25)
[2016-09-20] MEDS: Tiotropium 18 MCG inhalation IH SCH (08:57)
[2016-09-20] MEDS: Lisinopril 20 MG TABLET PO SCH (10:00)
[2016-09-20] MEDS: Furosemide 20 MG TABLET PO SCH (10:01)
[2016-09-20] MEDS: APIXABAN 5 MG TABLET PO SCH ×2 (10:02→21:53)
[2016-09-20] MEDS: Aspirin Enteric Coated 81 MG Tablet PO SCH (10:02)
[2016-09-20] MEDS: *HR* Glimepiride 2 MG TABLET PO SCH (10:02)
[2016-09-20] MEDS: Cholecalciferol (D-3) 1,000 UNIT TABLET PO SCH (10:03)
[2016-09-20] MEDS: Gabapentin 100 MG CAPSULE PO SCH ×3 (10:03→21:54)
[2016-09-20] MEDS: (Liraglutide [Victoza 2-Pak] 0.6 MG) SQ SCH (10:11)
--- NOTE | 2016-09-20 15:24 | Internal Med History&Physical ---
Date of Encounter: 09/20/16 Time of Encounter: 14:55 Assessment and Plan (1) Atrial fibrillation with RVR Current visit: Yes Status: Acute He was given a dose of Lanoxin. He will continue with this along with Coreg Eliquis and Multaq. (2) Anemia Current visit: No Status: Chronic Anemia testing done 09/14/2016 showed iron 35, transferrin saturation 15%, transferrin 172, and ferritin 83. B12 was 266 and folate 11.4. Will give trial of ferrous sulfate with vitamin C. Qualifiers: Anemia type: unspecified type Qualified Code(s): D64.9 - Anemia, unspecified (3) CKD (chronic kidney disease) stage 3, GFR 30-59 ml/min Current visit: No Status: Chronic Estimated GFR remains stable at 53 compared to renal indices last admission. Continue present management. (4) Gout Current visit: No Status: Acute Will give a dose of colchicine indomethacin and restart prednisone. Will also increase allopurinol dose. Qualifiers: Gout site: toe Gout etiology: unspecified cause Laterality: unspecified laterality Chronicity: acute Qualified Code(s): M10.9 - Gout, unspecified Internal Medicine - H&P: HPI Chief complaint: Knee and ankle pain Admitted From: Home Plans for Post Hospital Care: Home History of present illness: Mr. Huston is a 86 year old male who came to emergency complaining of pain in his ankles and knees onset 1-2 days previously. There had been no associated injury. He was evaluated in emergency room and felt to have gout as the likely source of his pain. He was also noted to have atrial fibrillation with RVR and was admitted to [facility] floor for ongoing care needs. He was discharged from [facility] 09/14/2016 after admission for foot pain felt to be due to gout. He was started on allopurinol 200 mg daily. He denies missing any doses of medication. He does not drink alcohol. He has DJD but denies other bone joint or muscle disorders. His cardiovascular history is positive for hypertension. He has history of atrial fibrillation in the past and has been on Coreg, Multaq, and Eliquis. He was in normal sinus during his recent [facility] hospitalization. An echocardiogram done 04/2014 showed diastolic dysfunction but LVEF 55%. There was mild to moderate aortic regurgitation. He claims he had a heart catheter and stress test in 2008 without further intervention recommended. He denies DVT or pulmonary embolus. Past Med Surg Social Fam HX - Past Medical History Medical history: arthritis, atrial fibrillation, CHF, COPD, diabetes, hyperlipidemia, hypertension, migraine Psychiatric history: no psych history - Past Surgical History Surgical History: cholecystectomy - Social History Smoking Status: Former smoker Smokeless Tobacco Status: No Alcohol use: none Drug use: none - Family History Mother Living Status: Hx Family Cardiac Disorders: Yes (LA) Hx Family Endocrine Disorder: Yes (DM2) Internal Medicine - H&P: Meds Albuterol Sulfate [Albuterol Inhaler] 2 puff IH QID PRN 07/30/15 [History] Apixaban [Eliquis] 2.5 mg PO BID 07/30/15 [History] Aspirin [Adult Low Dose Aspirin EC] 81 mg PO DAILY 07/30/15 [History] Duloxetine HCl [Cymbalta] 60 mg PO DAILY 07/30/15 [History] Fluticasone Propionate [Flovent Diskus] 250 mcg IH BID 07/30/15 [History] Glimepiride [Amaryl] 4 mg PO DAILY 07/30/15 [History] Liraglutide [Victoza 2-Apollo] 0.6 mg SQ QDPC 07/30/15 [History] Omeprazole [PriLOSEC] 20 mg PO DAILY 07/30/15 [History] Tiotropium [Spiriva] 18 mcg IH QDPC 07/30/15 [History] Lisinopril [Zestril] 10 mg PO DAILY #30 tablet 08/01/15 [Rx] Furosemide [Lasix] 20 mg PO DAILY 09/12/16 [History] Allopurinol [Zyloprim 100 MG] 200 mg PO DAILY #60 tablet 09/14/16 [Rx] CloNIDine HCl [Clonidine HCl] 0.2 mg PO Q8H #90 tab 09/14/16 [Rx] Atorvastatin [Lipitor] 20 mg PO HS 09/19/16 [History] Carvedilol [Coreg] 25 mg PO BID 09/19/16 [History] Cholecalciferol (Vitamin D3) [Vitamin D] 1,000 unit PO QAM 09/19/16 [History] Docusate [Colace] 100 mg PO DAILY 09/19/16 [History] Dronedarone [Multaq] 400 mg PO BIDWM 09/19/16 [History] Gabapentin [Neurontin] 100 mg PO TID 09/19/16 [History] Potassium Chloride [K-Tab ER] 20 meq PO BID 09/19/16 [History] Allergies metformin [From Glucophage] Adverse Reaction (Verified 09/19/16 19:39) See Comments Reaction not known. All Systems PM: A 10-system review of systems was performed and is negative for pertinent findings except as documented above in the HPI. Review of systems: Gen.: His weight has been stable at approximately 106-108 kg kg since his November 2014 [facility] hospitalization. Cardiovascular: As per history of present illness Respiratory: He smoked from age [age] up to 4 packs per day. He wears oxygen at bedtime and when necessary during the daytime. He has a diagnosis of KIKO but refuses CPAP. 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 GI: He has had remote cholecystectomy. He denies disorders of his liver or exocrine pancreas. : No history of hematuria dysuria or kidney stones. He has CKD stage III and follows with a [place] trial court judge. Neurologic: He denies large distribution strokes or seizures. Endocrine: He was diagnosed with DM 2 approximately 2004. He has hyperlipidemia but no known thyroid disease. Hematology/oncology: He denies blood disorders or cancers. He was found to have anemia on emergency room lab work. Anemia testing in the past has showed no factor deficiency . Psychiatric: He denies anxiety depression or other mental health issues Musk skeletal: As per history of present illness - Constitutional Vitals: Temp Pulse Resp BP Pulse Ox 97.9 F 62 16 91/45 96 09/20/16 04:09 09/20/16 14:26 09/20/16 12:22 09/20/16 14:26 09/20/16 12:22 Exam: Gen.: He is a well-developed well-nourished male who appears in no acute distress at present time lying quietly in bed HEENT: Head is atraumatic and normocephalic. Eyes: EOMI. There is no scleral icterus. Mouth: Mucosa is moist. Neck: Supple and nontender. There is no thyromegaly or adenopathy noted. Heart: Irregularly irregular without murmurs or gallops. Lungs: No wheezes or crackles are heard. Abdomen: Soft with mild tenderness to palpation diffusely. No masses or guarding noted. Extremities: There is tenderness on palpating and on passive range of motion of the right knee. He has tenderness on movement of the left ankle. The MTP joints of both feet are unremarkable on movement. There is no cyanosis edema or clubbing noted. Dorsalis pedis and posterior tibial pulses are trace palpable bilaterally. Neurologic: Mental status: He is talkative and a good historian. Cranial nerves : Smile is symmetric. Forehead wrinkles bilaterally. Tongue protrudes midline. EOMI. Motor: There is no pronator drift. Cerebellar: Finger to nose intact bilaterally. Skin: Warm and dry Internal Med - H&P Results - Labs CBC & Chem 7: 09/19/16 20:06 09/19/16 20:06 - VTE Reasons for not Prescribing Prophylaxis: Not indicated-Anticoagulated or INR therapeutic
[2016-09-20] MEDS ORDERED: Indomethacin 25 MG CAPSULE PO ONE (15:40)
[2016-09-20] MEDS ORDERED: Colchicine 0.6 MG TABLET PO ONE (15:40)
[2016-09-20] MEDS: PredniSONE 20 MG TABLET PO SCH (17:19)
[2016-09-20] MEDS: *HR* Digoxin 0.125 MG TABLET PO SCH (17:19)
[2016-09-21 06:16] LABS: Basophils % 0.3 %; Eosinophils % 0.1 %; Hematocrit 32.9 % (37.5-50.1); Immature Granulocytes % 1.2 % (0-4); Lymphocytes # 0.7 K/mcL (0.6-4.6); Lymphocytes % 9.7 %; Mean Corpuscular HGB Conc 33.4 g/dL (31.6-35.5); Mean Corpuscular Hemoglobin 30.5 pg (28.0-33.3); Mean Corpuscular Volume 91.1 fL (83.0-100.0); Mean Platelet Volume 11.9 fL (9.4-12.4); Monocytes # 0.6 K/mcL (0.0-1.3); Monocytes % 7.5 %; Neutrophils # 5.9 K/mcL (1.6-8.9); Platelet Count 214 K/mcL (140-400); Red Blood Count 3.61 M/mcL (4.19-5.50); Red Cell Distribution Width 12.8 % (11.5-14.5); Segmented Neutrophils % 81.2 %
[2016-09-21 06:33] LABS: Calcium 7.9 mg/dL (8.6-10.8); Potassium 5.9 mEq/L (3.5-4.5)
[2016-09-21 06:56] LABS: Thyroid Stimulating Hormone 0.82 mcIU/mL (0.350-4.840)
[2016-09-21] MEDS: Ascorbic Acid 500 MG TABLET PO SCH ×2 (08:23→08:34)
[2016-09-21] MEDS: *HR* Glimepiride 2 MG TABLET PO SCH (08:24)
[2016-09-21] MEDS: Aspirin Enteric Coated 81 MG Tablet PO SCH (08:25)
[2016-09-21] MEDS: PredniSONE 20 MG TABLET PO SCH ×2 (08:26→16:47)
[2016-09-21] MEDS: Cholecalciferol (D-3) 1,000 UNIT TABLET PO SCH (08:26)
[2016-09-21] MEDS: Gabapentin 100 MG CAPSULE PO SCH ×3 (08:27→21:30)
[2016-09-21] MEDS: Furosemide 20 MG TABLET PO SCH (08:27)
[2016-09-21] MEDS: (Liraglutide [Victoza 2-Pak] 0.6 MG) SQ SCH (08:31)
[2016-09-21] MEDS: *HR* Digoxin 0.125 MG TABLET PO SCH (08:31)
[2016-09-21] MEDS: Lisinopril 20 MG TABLET PO SCH (08:33)
[2016-09-21] MEDS: APIXABAN 5 MG TABLET PO SCH ×2 (08:36→21:32)
[2016-09-21] MEDS ORDERED: Dextrose Gel 15 GM PO PRN ×2 (08:52)
[2016-09-21] MEDS ORDERED: *HR* Dextrose 50 % in Water (Syg) 50 ML SYRINGE IVP PRN (08:52)
[2016-09-21] MEDS ORDERED: D5% in Water 1,000 ML IVC PRN (08:52)
[2016-09-21] MEDS: Insulin LISPRO 300 UNITS/3 ML VIAL SQ SCH ×3 (09:34→16:48)
--- NOTE | 2016-09-21 09:38 | Internal Med Progress Note ---
Date of Encounter: 09/21/16 Time of Encounter: 09:25 - Assessment and plan (1) Atrial fibrillation with RVR Current Visit: Yes Status: Acute Assessment and plan: September 21. He remains in atrial fibrillation but rate is now controlled. Continue Lanoxin, Coreg, and Eliquis. Multaq is ineffective at present dose. (2) Anemia Current Visit: No Status: Chronic Assessment and plan: September 21. Continue ferrous sulfate with vitamin C. Recheck labs in a.m. Qualifiers: Anemia type: unspecified type Qualified Code(s): D64.9 - Anemia, unspecified (3) CKD (chronic kidney disease) stage 3, GFR 30-59 ml/min Current Visit: No Status: Chronic Assessment and plan: September 21. Creatinine has risen slightly to 1.46 with estimated GFR decreasing to 46. I will not give further indomethacin. (4) Gout Current Visit: No Status: Acute Assessment and plan: September 21. Will give an additional dose of colchicine and reduce dose of prednisone to avoid hyperglycemia. Continue higher dose allopurinol. He will remain off indomethacin because of azotemia. Qualifiers: Gout site: toe Gout etiology: unspecified cause Laterality: unspecified laterality Chronicity: acute Qualified Code(s): M10.9 - Gout, unspecified - Subjective Interval history: September 21. He has no new complaints and states he feels improved overall with less pain in his knees and ankles. - Constitutional Vitals: Temp Pulse Resp BP Pulse Ox 97.8 F 80 16 138/64 99 09/21/16 06:42 09/21/16 06:42 09/21/16 06:42 09/21/16 06:42 09/21/16 06:42 Exam: He is resting comfortably in bed. There is less pain in the right knee on flexion. There is minimal discomfort in the left ankle on passive range of motion. I reviewed his medications and lab results. Internal Medicine: Result - Labs CBC & Chem 7: 09/21/16 05:20 09/21/16 05:20 Labs: Short CBC 09/21/16 Range/Units 05:20 WBC 7.3 (4.3-11.1) K/mcL Hgb 11.0 L (12.9-16.9) g/dL Hct 32.9 L (37.5-50.1) % Plt Count 214 (140-400) K/mcL Neutrophils # 5.9 (1.6-8.9) K/mcL BMP 09/21/16 05:20 Sodium 135 L Potassium 5.9 H D Chloride 101 Carbon Dioxide 24 BUN 31 H Creatinine 1.46 H Glucose 344 H Calcium 7.9 L - VTE Reasons for not Prescribing Prophylaxis: Not indicated-Anticoagulated or INR therapeutic Consult Discharge Plan - Plan Referrals: Phill Burkett [Other] - 1 week
[2016-09-21] MEDS ORDERED: Colchicine 0.6 MG TABLET PO ONE (09:45)
[2016-09-21] MEDS: Tiotropium 18 MCG inhalation IH SCH (10:04)
[2016-09-21] MEDS: Beclomethasone 80mcg MDI IH SCH ×2 (10:04→22:12)
--- NOTE | 2016-09-21 10:48 | Electrocardiograph Report ---
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
[2016-09-21] MEDS ORDERED: Insulin LISPRO 300 UNITS/3 ML VIAL SQ SCH (21:00)
[2016-09-22 06:26] LABS: Basophils % 0.1 %; Hemoglobin 10.1 g/dL (12.9-16.9); Lymphocytes % 12.5 %; Mean Corpuscular HGB Conc 33.7 g/dL (31.6-35.5); Mean Corpuscular Hemoglobin 30.5 pg (28.0-33.3); Mean Corpuscular Volume 90.6 fL (83.0-100.0); Mean Platelet Volume 11.6 fL (9.4-12.4); Monocytes # 0.9 K/mcL (0.0-1.3); Monocytes % 11.2 %; Neutrophils # 5.9 K/mcL (1.6-8.9); Platelet Count 233 K/mcL (140-400); Red Blood Count 3.31 M/mcL (4.19-5.50); Red Cell Distribution Width 12.8 % (11.5-14.5); Segmented Neutrophils % 75.2 %
[2016-09-22 06:48] LABS: Calcium 7.9 mg/dL (8.6-10.8)
[2016-09-22 06:50] LABS: Digoxin 0.9 ng/mL (0.8-2.0)
[2016-09-22] MEDS: Insulin LISPRO 300 UNITS/3 ML VIAL SQ SCH ×2 (08:34→12:20)
[2016-09-22] MEDS: APIXABAN 5 MG TABLET PO SCH (08:35)
[2016-09-22] MEDS: Gabapentin 100 MG CAPSULE PO SCH (08:36)
[2016-09-22] MEDS: Aspirin Enteric Coated 81 MG Tablet PO SCH (08:37)
[2016-09-22] MEDS: Ascorbic Acid 500 MG TABLET PO SCH (08:39)
[2016-09-22] MEDS: Cholecalciferol (D-3) 1,000 UNIT TABLET PO SCH (08:40)
[2016-09-22] MEDS: PredniSONE 20 MG TABLET PO SCH (08:40)
[2016-09-22] MEDS: Furosemide 20 MG TABLET PO SCH (08:41)
[2016-09-22] MEDS: *HR* Glimepiride 2 MG TABLET PO SCH (08:41)
[2016-09-22] MEDS: *HR* Digoxin 0.125 MG TABLET PO SCH (08:42)
[2016-09-22] MEDS: Beclomethasone 80mcg MDI IH SCH (10:07)
[2016-09-22] MEDS: Tiotropium 18 MCG inhalation IH SCH (10:07)
[2016-09-22] MEDS: (Liraglutide [Victoza 2-Pak] 0.6 MG) SQ SCH (12:20)
--- NOTE | 2016-09-22 12:21 | Discharge Summary ---
Date of Encounter: 09/22/16 Time of Encounter: 12:10 - Discharge Diagnosis (1) Atrial fibrillation with RVR Priority: Primary Status: Acute (2) Gout Priority: Secondary Status: Acute Qualifiers: Gout site: toe Gout etiology: unspecified cause Laterality: unspecified laterality Chronicity: acute Qualified Code(s): M10.9 - Gout, unspecified (3) Anemia Priority: Secondary Status: Chronic Qualifiers: Anemia type: unspecified type Qualified Code(s): D64.9 - Anemia, unspecified (4) CKD (chronic kidney disease) stage 3, GFR 30-59 ml/min Priority: Secondary Status: Chronic - Discharge Medications Prescriptions: Allopurinol [Zyloprim 100 MG] 200 mg PO BID #120 tablet Digoxin [Lanoxin] 0.125 mg PO DAILY #30 tablet PredniSONE 10 mg PO BIDWM #6 tablet Home Medications: Albuterol Sulfate [Albuterol Inhaler] 2 puff IH QID PRN 07/30/15 [History] Apixaban [Eliquis] 2.5 mg PO BID 07/30/15 [History] Aspirin [Adult Low Dose Aspirin EC] 81 mg PO DAILY 07/30/15 [History] Duloxetine HCl [Cymbalta] 60 mg PO DAILY 07/30/15 [History] Fluticasone Propionate [Flovent Diskus] 250 mcg IH BID 07/30/15 [History] Glimepiride [Amaryl] 4 mg PO DAILY 07/30/15 [History] Liraglutide [Victoza 2-Apollo] 0.6 mg SQ QDPC 07/30/15 [History] Omeprazole [PriLOSEC] 20 mg PO DAILY 07/30/15 [History] Tiotropium [Spiriva] 18 mcg IH QDPC 07/30/15 [History] Lisinopril [Zestril] 10 mg PO DAILY #30 tablet 08/01/15 [Rx] Furosemide [Lasix] 20 mg PO DAILY 09/12/16 [History] Atorvastatin [Lipitor] 20 mg PO HS 09/19/16 [History] Carvedilol [Coreg] 25 mg PO BID 09/19/16 [History] Cholecalciferol (Vitamin D3) [Vitamin D3] 1,000 unit PO QAM 09/19/16 [History] Docusate [Colace] 100 mg PO DAILY 09/19/16 [History] Dronedarone [Multaq] 400 mg PO BIDWM 09/19/16 [History] Gabapentin [Neurontin] 100 mg PO TID 09/19/16 [History] Allopurinol [Zyloprim 100 MG] 200 mg PO BID #120 tablet 09/22/16 [Rx] CloNIDine HCl [Clonidine HCl] 0.1 mg PO Q8H #90 tab 09/22/16 [Rx] Digoxin [Lanoxin] 0.125 mg PO DAILY #30 tablet 09/22/16 [Rx] PredniSONE 10 mg PO BIDWM #6 tablet 09/22/16 [Rx] Allergies/Adverse Reactions: Allergies metformin [From Glucophage] Adverse Reaction (Verified 09/19/16 19:39) See Comments Reaction not known. Date of admission: 09/20/16 15:49 Primary care physician: Phill Burkett - Patient Status Disposition: Home, Self-Care Condition: Good Functional capacity at discharge: uses cane/walker Overall status at discharge: patient is progressing back to baseline - Discharge Instructions Follow Up With: Phill Burkett [Other] - 1 week - Diet and Activity Activity: resume usual activities as tolerated Diet: advance to your usual diet Hospital course: Mr. Huston is a 86 year old male who came to emergency complaining of pain in his ankles and knees onset 1-2 days previously. There had been no associated injury. He was evaluated in emergency room and felt to have gout as the likely source of his pain. He was also noted to have atrial fibrillation with RVR and was admitted to [facility] floor for ongoing care needs. Initial orders were written by the emergency room physician. I saw him on September 20 and performed a history and physical. He was started on higher dose allopurinol. He was also given steroids, colchicine, and a single dose of indomethacin. His knee and ankle pain improved during hospitalization he was able to ambulate with mild residual pain present. He will continue with prednisone for a few days at discharge and his allopurinol dose will be increased to 400 mg daily. He was started on Lanoxin and his ventricular rate slowed to an acceptable range. He will continue with his other home medications of Coreg, Eliquis and Multaq. The Multaq appears to be ineffective in maintaining normal sinus rhythm. Dr. Burkett and/or the electric meter installer can determine if this medication should be continued. When I saw him on September 22 he felt stable for discharge home. He will follow with Dr. Burkett within 1 week. - Time Spent with Patient Total time spent providing and/or coordinating discharge services: - Constitutional Vitals: Temp Pulse Resp BP Pulse Ox 97.3 F L 87 18 149/54 91 09/22/16 06:54 09/22/16 06:54 09/22/16 10:07 09/22/16 06:54 09/22/16 10:07 - VTE Reasons for not Prescribing Prophylaxis: Not indicated-Anticoagulated or INR therapeutic Documentation of Mechanical Device: Graduated compression elastic hosiery
[2016-09-22 12:48] VITALS: BP 138/62
== END 2016-09-22 13:30 | disposition home or self-care (01) | DRG 309 ==
LOC: INPPIK 19:35 → EMEROOPIK 19:35 → INPPIK 23:36
PROVIDERS: ADMIT Internal Medicine; ATTEND Internal Medicine

== ENCOUNTER 2016-11-30 08:29 | Observation (INO) ==
--- NOTE | 2016-11-30 08:43 | Emergency Department Note ---
Disposition Clinical Impression: COPD exacerbation Disposition: Admitted As Inpatient Condition: Good URI/Sore Throat HPI - General Chief Complaint: ED Upper Respiratory Infection Stated Complaint: cough Source: patient Mode of arrival: private vehicle Limitations: no limitations Nursing Notes Reviewed: Yes Vital Signs Reviewed: Yes - History of Present Illness HPI Narrative: Patient presents to the ED complaining of cough and shortness of breath. Symptoms began yesterday. States cough is occasionally productive of pink sputum. He reports rhinorrhea but no sneezing, sore throat or nasal congestion. No chest pain. No fever or chills. No nausea, vomiting, diarrhea or constipation. Denies any recent leg swelling. He does have a history of COPD and wears oxygen at 2-3 L only at night. Reports compliance with his Flovent and Spiriva but he has not used any albuterol at home over the past 2 days. He has over [id number] smoking history but quit over 40 years ago. Other history also notable for CHF, A. fib, COPD and gout. No recent travel or sick contacts. - Related Data Home Medications Medication Instructions Recorded Confirmed Albuterol Sulfate [Albuterol 2 puff IH QID PRN 07/30/15 11/30/16 Inhaler] Aspirin [Adult Low Dose Aspirin EC] 81 mg PO DAILY 07/30/15 11/30/16 Duloxetine HCl [Cymbalta] 60 mg PO DAILY 07/30/15 11/30/16 Fluticasone Propionate [Flovent 250 mcg IH BID 07/30/15 11/30/16 Diskus] Glimepiride [Amaryl] 4 mg PO DAILY 07/30/15 11/30/16 Liraglutide [Victoza 2-Apollo] 0.6 mg SQ QDPC 07/30/15 11/30/16 Omeprazole [PriLOSEC] 20 mg PO DAILY 07/30/15 11/30/16 Tiotropium [Spiriva] 18 mcg IH QDPC 07/30/15 11/30/16 Furosemide [Lasix] 20 mg PO DAILY 09/12/16 11/30/16 Atorvastatin [Lipitor] 20 mg PO HS 09/19/16 11/30/16 Carvedilol [Coreg] 25 mg PO BID 09/19/16 11/30/16 Cholecalciferol (Vitamin D3) 1,000 unit PO QAM 09/19/16 11/30/16 [Vitamin D3] Docusate [Colace] 100 mg PO DAILY 09/19/16 11/30/16 Insulin Glargine,Hum.rec.anlog 100 unit SQ AD 11/28/16 11/30/16 [Lantus Solostar] Lisinopril [Zestril] 5 mg PO DAILY 11/28/16 11/30/16 Potassium Chloride [K-Tab ER] 20 meq PO DAILY 11/28/16 11/30/16 Warfarin [Coumadin] 2.5 mg PO DAILY 11/28/16 11/30/16 Previous Rx's Medication Instructions Recorded Digoxin [Lanoxin] 0.125 mg PO DAILY #30 tablet 09/22/16 Allergies Allergy/AdvReac Type Severity Reaction Status Date / Time metformin [From Glucophage] AdvReac See Verified 09/19/16 19:39 Comments Constitutional: Denies: fever, chills, weakness, weight change Eyes: Denies: eye pain, eye discharge, vision change ENT ED: Denies: ear pain, throat pain, dental pain, hearing loss, epistaxis, congestion, dysphagia Cardiovascular: Denies: chest pain, palpitations, dyspnea on exertion, edema, syncope Respiratory: Reports: cough, dyspnea, sputum production. Denies: wheezes, hemoptysis, stridor Gastrointestinal: Denies: abdominal pain, nausea, vomiting, diarrhea, constipation, hematemesis, melena, hematochezia Genitourinary: Denies: urgency, dysuria, frequency, hematuria Musculoskeletal: Denies: back pain, neck pain, arthralgia, myalgia Integumentary: Denies: rash, abrasion, lesions Neurological: Denies: headache, weakness, numbness, paresthesias, confusion, abnormal gait, vertigo Psychiatric: Denies: anxiety, depression, suicidal thoughts, homicidal thoughts , auditory hallucinations, visual hallucinations Endocrine: Denies: fatigue Hematological/Lymphatic: Denies: easy bleeding, easy bruising Allergic/Immunologic: Denies: facial swelling, urticaria URI PMH - Past Medical History Medical history: Reports: arthritis, atrial fibrillation, CHF, COPD, diabetes, hyperlipidemia, hypertension, migraine Surgical history: Reports: cholecystectomy Psychiatric history: Reports: no psych history - Social History Smoking Status: Former smoker Alcohol use: Reports: none Drug use: Reports: none Physical Exam - General Limitations: no limitations General appearance: alert, in no apparent distress - Head Head exam: atraumatic, normocephalic, normal inspection - Eye Eye exam: Present: normal appearance, PERRL, EOMI - ENT ENT exam: normal exam, normal oropharynx, mucous membranes moist - Neck Neck exam: Present: normal inspection, full ROM, trachea midline - Chest Chest inspection: Present: normal inspection, symmetric chest wall rise - Respiratory Respiratory exam: Present: wheezes. Absent: respiratory distress, accessory muscle use - Expanded Respiratory Exam Location: wheezes: Upper, Lower, Right, Left, decreased breath sounds: Left, Right, Upper, Lower - Cardiovascular Cardiovascular exam: Present: irregular rhythm - Abdominal Exam Abdominal exam: Present: soft, Non-Tender. Absent: tenderness, distention, guarding, rebound, rigidity - Extremities Exam Extremities exam: Present: normal inspection, full ROM, pedal edema (trace bilaterally). Absent: tenderness - Back Exam Back exam: Present: normal inspection, full ROM. Absent: tenderness - Neurological Exam Neurological exam: Present: alert, oriented X3 - Psychiatric Psychiatric exam: Present: normal affect, normal mood - Skin Skin exam: Present: warm, dry, intact, normal color Course Course Narrative: Patient presents to the ED at 2 days of shortness of breath and intermittent productive cough with history of COPD. He is tight and wheezing on exam with oxygen saturation of 90% on room air that increased to 94% on 2 L. I suspect COPD exacerbation. Will give steroids and breathing treatments. Will obtain chest x-ray to rule out pneumonia or other acute pulmonary pathology. - Reevaluation(s) Reevaluation #1: Chest x-ray shows low lung volumes and atelectasis but no consolidation or other acute abnormality. Repeat respiratory exam showed decreased aeration and decreased wheezing however when taken off oxygen patient has room-air saturation of 90 on room air. After ambulating to the restroom and back he desatted into the low 80s, became more short of breath and only recovered to 88 at rest before being placed back on oxygen. Saturations are maintaining at 93-4 % on 2 L. Based on his persistent dyspnea with exertion and hypoxia he would benefit from admission for continued aggressive nebulizer treatments and steroids. Discussed this recommendation with the patient and he is in agreement. Will contact the hospitalist health information provider regarding admission. Reevaluation #2: I spoke to the hospital list on-call, Dr. Grey, who has accepted the patient. Vital Signs Temperature 98.5 F 11/30/16 08:30 Pulse Rate 103 11/30/16 08:30 Respiratory Rate 24 11/30/16 08:30 Blood Pressure 155/66 11/30/16 08:30 O2 Sat by Pulse Oximetry 90 11/30/16 08:30 Temperature 98.5 F 11/30/16 11:12 Pulse Rate 91 11/30/16 10:21 Respiratory Rate 18 11/30/16 11:12 Blood Pressure 151/85 11/30/16 11:12 O2 Sat by Pulse Oximetry 95 11/30/16 10:21 Oxygen Delivery Oxygen Delivery Nasal Cannula Upper Respiratory Infection - Differential Diagnosis Differential Diagnosis: Likely: upper respiratory infection, pneumonia - Medical Records Medical records reviewed: Yes I reviewed the patient's medical records. - Radiology Data Radiology results reviewed: Yes I reviewed the patient's radiology results. ITS Impressions Chest X-Ray 11/30/16 08:55 IMPRESSION: 1. Low lung volumes with bibasilar atelectasis. Otherwise unremarkable chest radiograph. 2. Stable mild enlargement of the cardiac silhouette. D/ / Bandar Garduno MD / Bandar Garduno MD Interpreting Provider: Bandar Garduno MD
[2016-11-30] MEDS ORDERED: methylPREDNISolone 125 MG/2 ML VIAL IM ONE (08:54)
[2016-11-30] MEDS ORDERED: Ipratropium/Albuterol Neb 3 ML IH ONE ×2 (08:54→08:55)
[2016-11-30] MEDS ORDERED: Naloxone 0.4 MG/ML INJ IVP PRN ×3 (10:42→11:29)
[2016-11-30] MEDS ORDERED: *HR* Dextrose 50 % in Water (Syg) 50 ML SYRINGE IVP PRN (11:29)
[2016-11-30] MEDS ORDERED: D5% in Water 1,000 ML IVC PRN (11:29)
[2016-11-30] MEDS ORDERED: Dextrose Gel 15 GM PO PRN ×2 (11:29)
[2016-11-30] MEDS: Insulin LISPRO 300 UNITS/3 ML VIAL SQ SCH ×2 (12:03→16:49)
[2016-11-30 16:01] LABS: INR 3.3; Prothrombin Time 37.3 Seconds (9.4-12.1)
--- NOTE | 2016-11-30 16:43 | Internal Med History&Physical ---
Date of Encounter: 11/30/16 Time of Encounter: 04:10 Assessment and Plan (1) Dyspnea Current visit: Yes Status: Acute Suspect multifactorial etiology. Will order labs since minimal lab work done in the emergency room. Chest x-ray was generally unremarkable. Qualifiers: Dyspnea type: shortness of breath Qualified Code(s): R06.02 - Shortness of breath (2) Anemia Current visit: No Status: Chronic We will check CBC Qualifiers: Anemia type: unspecified type Qualified Code(s): D64.9 - Anemia, unspecified (3) CKD (chronic kidney disease) stage 3, GFR 30-59 ml/min Current visit: No Status: Chronic We will check renal indices. (4) Gout Current visit: No Status: Acute We will check uric acid level. Qualifiers: Gout site: toe Gout etiology: unspecified cause Laterality: unspecified laterality Chronicity: acute Qualified Code(s): M10.9 - Gout, unspecified Internal Medicine - H&P: HPI Chief complaint: Dyspnea Admitted From: Home Plans for Post Hospital Care: Home History of present illness: Mr. Huston is a 86 year old male who came to the emergency room stating he had worsening dyspnea onset yesterday while at leisure. He reports he had minimal cough with occasional pink sputum. He denies yellow or green sputum or harley hemoptysis. He was evaluated in emergency room and felt to have exacerbation of COPD. He was admitted to [facility] floor for ongoing care needs. He was hospitalized last at [facility] approximately 2 months ago with AF with RVR and edema. His respiratory history is significant for having smoked from age [age] up to 4 packs per day. He wears oxygen at bedtime and when necessary during the daytime. He has a diagnosis of KIKO but refuses CPAP. 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 Past Med Surg Social Fam HX - Past Medical History Medical history: arthritis, atrial fibrillation, CHF, COPD, diabetes, hyperlipidemia, hypertension, migraine Psychiatric history: no psych history - Past Surgical History Surgical History: cholecystectomy - Social History Smoking Status: Former smoker Smokeless Tobacco Status: No Alcohol use: none Drug use: none - Family History Mother Living Status: Hx Family Cardiac Disorders: Yes ([place]) Hx Family Endocrine Disorder: Yes (DM2) Internal Medicine - H&P: Meds Albuterol Sulfate [Albuterol Inhaler] 2 puff IH QID PRN 07/30/15 [History] Aspirin [Adult Low Dose Aspirin EC] 81 mg PO DAILY 07/30/15 [History] Duloxetine HCl [Cymbalta] 60 mg PO DAILY 07/30/15 [History] Fluticasone Propionate [Flovent Diskus] 250 mcg IH BID 07/30/15 [History] Glimepiride [Amaryl] 4 mg PO DAILY 07/30/15 [History] Liraglutide [Victoza 2-Apollo] 0.6 mg SQ QDPC 07/30/15 [History] Omeprazole [PriLOSEC] 20 mg PO DAILY 07/30/15 [History] Tiotropium [Spiriva] 18 mcg IH QDPC 07/30/15 [History] Furosemide [Lasix] 20 mg PO DAILY 09/12/16 [History] Atorvastatin [Lipitor] 20 mg PO HS 09/19/16 [History] Carvedilol [Coreg] 25 mg PO BID 09/19/16 [History] Cholecalciferol (Vitamin D3) [Vitamin D3] 1,000 unit PO QAM 09/19/16 [History] Docusate [Colace] 100 mg PO DAILY 09/19/16 [History] Digoxin [Lanoxin] 0.125 mg PO DAILY #30 tablet 09/22/16 [Rx] Insulin Glargine,Hum.rec.anlog [Lantus Solostar] 100 unit SQ AD 11/28/16 [ History] Lisinopril [Zestril] 5 mg PO DAILY 11/28/16 [History] Potassium Chloride [K-Tab ER] 20 meq PO DAILY 11/28/16 [History] Warfarin [Coumadin] 2.5 mg PO DAILY 11/28/16 [History] Allergies metformin [From Glucophage] Adverse Reaction (Verified 09/19/16 19:39) See Comments Reaction not known. All Systems PM: A 10-system review of systems was performed and is negative for pertinent findings except as documented above in the HPI. Review of systems: Review of systems from his hospitalization 2 months ago were reviewed and revised as below. Gen.: His weight has been stable at approximately 106 kg since his November 2014 [facility] hospitalization. Cardiovascular: He has history of hypertension and chronic atrial fibrillation. He was on Multaq but it has been discontinued since last admission because of ineffectiveness. He had echocardiogram April 2014 which showed diastolic dysfunction with LVEF of 55%. There is mild to moderate AR. He claims he had a heart cath and stress test 2008 without further intervention recommended. He denies DVT or pulmonary embolus. He states he did have a syncopal episode 4 days ago when he became lightheaded upon standing from a chair and lost consciousness for a few seconds and fell to the floor. There was no significant injury. Respiratory: As per history of present illness GI: He has had remote cholecystectomy. He denies disorders of his liver or exocrine pancreas. : No history of hematuria dysuria or kidney stones. He has CKD stage III and follows with a [facility] administrative specialist. Neurologic: He denies large distribution strokes or seizures. Endocrine: He was diagnosed with DM 2 approximately 2004. He has hyperlipidemia but no known thyroid disease. Hematology/oncology: He denies blood disorders or cancers. He has anemia with testing 09/14/2016 showing no factor deficiency . Psychiatric: He denies anxiety depression or other mental health issues Musk skeletal: He has gout and uses allopurinol. He has DJD but denies other bone joint or muscle disorders. - Constitutional Vitals: Temp Pulse Resp BP Pulse Ox 98.6 F 100 20 114/77 93 11/30/16 16:17 11/30/16 16:17 11/30/16 16:17 11/30/16 16:17 11/30/16 16:17 Exam: Gen.: He is a well-developed well-nourished male who appears in no severe distress at present time HEENT: Head is atraumatic and normocephalic. Eyes: EOMI. There is no scleral icterus. Mouth: Mucosa is moist. Neck: Supple and nontender. There is no thyromegaly or adenopathy noted. Heart: Irregularly irregular without murmurs or gallops Lungs: No wheezes or crackles are heard. Abdomen: He has mild tenderness to palpation in the mid epigastric area. No masses or guarding noted. Extremities: He has trace edema of the dorsum of the feet and lower anterior shins bilaterally. Dorsalis pedis and posterior tibial pulses are trace palpable. His feel warm to touch. Neurologic: Mental status: He is talkative and a good historian. Cranial nerves : Smile is symmetric. Forehead wrinkles bilaterally. Tongue protrudes midline. EOMI. Motor: There is no pronator drift. Cerebellar: Finger to nose is intact bilaterally. Skin: Warm and dry - VTE Reasons for not Prescribing Prophylaxis: Not indicated-Anticoagulated or INR therapeutic
[2016-11-30] MEDS ORDERED: *HR* Warfarin 5 MG TABLET PO SCH (18:00)
[2016-11-30 20:23] LABS: Basophils % 0.3 %; Eosinophils % 0.1 %; Hematocrit 36.8 % (37.5-50.1); Hemoglobin 12.7 g/dL (12.9-16.9); Immature Granulocytes % 0.5 % (0-4); Lymphocytes # 0.4 K/mcL (0.6-4.6); Lymphocytes % 3.5 %; Mean Corpuscular HGB Conc 34.5 g/dL (31.6-35.5); Mean Corpuscular Hemoglobin 30.9 pg (28.0-33.3); Mean Corpuscular Volume 89.5 fL (83.0-100.0); Mean Platelet Volume 11.8 fL (9.4-12.4); Monocytes # 0.2 K/mcL (0.0-1.3); Monocytes % 1.7 %; Neutrophils # 10.6 K/mcL (1.6-8.9); Platelet Count 271 K/mcL (140-400); Red Blood Count 4.11 M/mcL (4.19-5.50); Red Cell Distribution Width 13.8 % (11.5-14.5); Segmented Neutrophils % 93.9 %
[2016-11-30] MEDS: FLUTICASONE PROPIONATE 250 MCG IH SCH (20:26)
[2016-11-30 20:38] LABS: Alanine Aminotransferase 13 Units/L (0-55); Albumin 3.1 g/dL (3.5-5.0); Albumin/Globulin Ratio 0.8 (1.1-2.2); Alkaline Phosphatase 89 Units/L (38-126); Aspartate Amino Transferase 17 Units/L (5-34); BUN/Creatinine Ratio 10 (6-26); Bilirubin,Total 0.4 mg/dL (0.2-1.2); Blood Urea Nitrogen 12 mg/dL (8-26); Calcium 9.1 mg/dL (8.6-10.8); Carbon Dioxide 23 mEq/L (19-29); Chloride 96 mEq/L (98-109); Globulin 3.8 g/dL (2.4-3.5); Glucose 326 mg/dL (70-99); Osmolality,Calculated 288 (280-300); Potassium 4.6 mEq/L (3.5-4.5); Sodium 133 mEq/L (136-145); Total Protein 6.9 g/dL (6.0-8.3); eGFR For African Americans > 60 (> 60); eGFR For Non-African Americans 54 (> 60)
[2016-11-30] MEDS ORDERED: Insulin LISPRO 300 UNITS/3 ML VIAL SQ SCH (21:00)
[2016-11-30] MEDS ORDERED: Beclomethasone 80mcg MDI IH SCH (22:00)
[2016-12-01] MEDS ORDERED: ALPRAZolam 0.5 MG TABLET PO PRN (03:17)
[2016-12-01] MEDS ORDERED: Furosemide 20 MG TABLET PO STA (03:18)
[2016-12-01] MEDS ORDERED: Azithromycin 500 MG in D5% in Water 250 ML IVPB ONE (03:22)
[2016-12-01] MEDS: Ipratropium/Albuterol Neb 3 ML IH PRN ×3 (03:39→09:05)
[2016-12-01 05:08] LABS: INR 2.7; Prothrombin Time 30.3 Seconds (9.4-12.1)
[2016-12-01] MEDS ORDERED: *HR* Glimepiride 2 MG TABLET PO SCH ×2 (07:30→09:00)
[2016-12-01 07:36] VITALS: BP 170/66
[2016-12-01] MEDS: Insulin LISPRO 300 UNITS/3 ML VIAL SQ SCH (07:44)
[2016-12-01] MEDS: FLUTICASONE PROPIONATE 250 MCG IH SCH (08:46)
[2016-12-01] MEDS ORDERED: Cholecalciferol (D-3) 1,000 UNIT TABLET PO SCH ×2 (09:00)
[2016-12-01] MEDS ORDERED: Furosemide 20 MG TABLET PO SCH ×2 (09:00)
[2016-12-01] MEDS ORDERED: *HR* Warfarin 5 MG TABLET PO SCH (09:00)
[2016-12-01] MEDS ORDERED: Tiotropium 18 MCG inhalation IH SCH ×2 (09:00)
[2016-12-01] MEDS ORDERED: Lisinopril 20 MG TABLET PO SCH (09:00)
[2016-12-01] MEDS ORDERED: Liraglutide [Victoza 2-Pak] 0.6 MG SQ SCH (09:00)
[2016-12-01] MEDS ORDERED: Patient Taking Own Medication 1 EACH SQ SCH (09:00)
[2016-12-01] MEDS ORDERED: Aspirin Enteric Coated 81 MG Tablet PO SCH ×2 (09:00)
[2016-12-01] MEDS ORDERED: *HR* Digoxin 0.125 MG TABLET PO SCH ×2 (09:00)
--- NOTE | 2016-12-01 10:02 | Discharge Summary ---
Date of Encounter: 12/01/16 Time of Encounter: 09:50 - Discharge Diagnosis (1) Dyspnea Priority: Primary Status: Acute Qualifiers: Dyspnea type: shortness of breath Qualified Code(s): R06.02 - Shortness of breath (2) Anemia Priority: Secondary Status: Chronic Qualifiers: Anemia type: unspecified type Qualified Code(s): D64.9 - Anemia, unspecified (3) CKD (chronic kidney disease) stage 3, GFR 30-59 ml/min Priority: Secondary Status: Chronic (4) Gout Priority: Secondary Status: Acute Qualifiers: Gout site: toe Gout etiology: unspecified cause Laterality: unspecified laterality Chronicity: acute Qualified Code(s): M10.9 - Gout, unspecified - Discharge Medications Prescriptions: Cefuroxime PO [Ceftin] 500 mg PO Q12HR #6 tablet Azithromycin [Zithromax] 250 mg PO DAILY #3 tablet Lactobacillus [Culturelle] 1 each PO BID #6 cap.sprink Home Medications: Albuterol Sulfate [Albuterol Inhaler] 2 puff IH QID PRN 07/30/15 [History] Aspirin [Adult Low Dose Aspirin EC] 81 mg PO DAILY 07/30/15 [History] Duloxetine HCl [Cymbalta] 60 mg PO DAILY 07/30/15 [History] Fluticasone Propionate [Flovent Diskus] 250 mcg IH BID 07/30/15 [History] Glimepiride [Amaryl] 4 mg PO DAILY 07/30/15 [History] Liraglutide [Victoza 2-Apollo] 0.6 mg SQ QDPC 07/30/15 [History] Omeprazole [PriLOSEC] 20 mg PO DAILY 07/30/15 [History] Tiotropium [Spiriva] 18 mcg IH QDPC 07/30/15 [History] Furosemide [Lasix] 20 mg PO DAILY 09/12/16 [History] Atorvastatin [Lipitor] 20 mg PO HS 09/19/16 [History] Carvedilol [Coreg] 25 mg PO BID 09/19/16 [History] Cholecalciferol (Vitamin D3) [Vitamin D3] 1,000 unit PO QAM 09/19/16 [History] Docusate [Colace] 100 mg PO DAILY 09/19/16 [History] Digoxin [Lanoxin] 0.125 mg PO DAILY #30 tablet 09/22/16 [Rx] Insulin Glargine,Hum.rec.anlog [Lantus Solostar] 100 unit SQ AD 11/28/16 [ History] Lisinopril [Zestril] 5 mg PO DAILY 11/28/16 [History] Potassium Chloride [K-Tab ER] 20 meq PO DAILY 11/28/16 [History] Warfarin [Coumadin] 2.5 mg PO DAILY 11/28/16 [History] Azithromycin [Zithromax] 250 mg PO DAILY #3 tablet 12/01/16 [Rx] Cefuroxime PO [Ceftin] 500 mg PO Q12HR #6 tablet 12/01/16 [Rx] Lactobacillus [Culturelle] 1 each PO BID #6 cap.sprink 12/01/16 [Rx] Allergies/Adverse Reactions: Allergies metformin [From Glucophage] Adverse Reaction (Verified 09/19/16 19:39) See Comments Reaction not known. Date of admission: 11/30/16 10:52 Primary care physician: Phill Burkett DO - Patient Status Disposition: Home, Self-Care Condition: Good Functional capacity at discharge: independent ambulation Overall status at discharge: patient is progressing back to baseline - Discharge Instructions Follow Up With: Phill Burkett DO [Primary Care Provider] - 1 week - Diet and Activity Activity: resume usual activities as tolerated Diet: advance to your usual diet Hospital course: Mr. Huston is a 86 year old male who came to the emergency room stating he had worsening dyspnea onset yesterday while at leisure. He reports he had minimal cough with occasional pink sputum. He denies yellow or green sputum or harley hemoptysis. He was evaluated in emergency room and felt to have exacerbation of COPD. He was [facility] for ongoing care needs. Initial orders written by the emergency room physician. I saw him on November 30 and performed a history and physical. I gave him a dose of Rocephin and Zithromax when the WBC returned slightly elevated at 11.3 with 93.9% segs. The following day he stated his dyspnea was improved and he wished to be discharged home. He will follow with his PCP Dr. Burkett within 1 week. He will receive 3 additional days of oral antibiotic and probiotic at discharge. - Time Spent with Patient Total time spent providing and/or coordinating discharge services: - Constitutional Vitals: Temp Pulse Resp BP Pulse Ox 97.7 F 97 24 170/66 97 12/01/16 07:35 12/01/16 07:35 12/01/16 07:35 12/01/16 07:35 12/01/16 09:05 - VTE Reasons for not Prescribing Prophylaxis: Not indicated-Anticoagulated or INR therapeutic
== END 2016-12-01 11:20 | disposition home or self-care (01) ==
LOC: INPPIK 08:29 → EMEROOPIK 08:29 → INPPIK 11:25
PROVIDERS: ADMIT Internal Medicine; ATTEND Internal Medicine

== ENCOUNTER 2016-12-01 14:47 | Inpatient (IN) ==
[2016-12-01] MEDS ORDERED: methylPREDNISolone 125 MG/2 ML VIAL IVP ONE (14:58)
[2016-12-01] MEDS ORDERED: Ipratropium/Albuterol Neb 3 ML IH ONE (14:58)
[2016-12-01] MEDS ORDERED: Levofloxacin 750 MG/150 ML 750 MG/150 ML BAG IVPB ONE (14:58)
--- NOTE | 2016-12-01 14:58 | Emergency Department Note ---
Disposition Clinical Impression: COPD exacerbation, Elevated troponin I level, Atrial fibrillation with rapid ventricular response Disposition: Admitted As Inpatient Condition: Fair Referrals: Phill Burkett DO [Primary Care Provider] - Forms: ED Satisfaction Letter SOB HPI - General Chief Complaint: ED Shortness of Breath/Dyspnea Stated Complaint: ROBERT Time Seen by Provider: 12/01/16 14:55 Source: patient, EMS Mode of arrival: EMS Limitations: no limitations, age Nursing Notes Reviewed: Yes Vital Signs Reviewed: Yes - History of Present Illness Patient relates he is been having increased shortness of breath. He was admitted to the hospital for COPD yesterday but was feeling much better this morning. He states shortly after going home he again has had increased shortness of breath as well as weakness with standing and walking. He has started to have a feeling of fevers and chills and was found to have a temperature 102 by EMS. He denies other chest pain, abdominal pain, vomiting or diarrhea. Denies any extremity swelling, immobilization or injury. He states he usually wears oxygen only at night is now wearing it at 3 L nasal cannula during the daytime. I did contact Dr. Grey about this patient on his arrival to the emergency department. He states he had normal vital signs and no fever this morning. He is like her evaluated again through the emergency department to see if he needs to be readmitted. Pt Subjective Complaint: shortness of breath Onset (ago): hour(s) Context: recent illness Severity: moderate Consistency/Duration: intermittent, gradually worsening Improves with: oxygen, rest, bronchodilators Worsens with: exertion, coughing Known history of: COPD Associated symptoms: Reports: fever, cough, wheezing, sputum production. Denies : chest pain, pain with inspiration, orthopnea, lower extremity pain, polyuria, polydipsia, parasthesias, palpitations, hemoptysis, diaphoresis, nausea/vomiting , syncope, abdominal pain, rash Treatment prior to arrival: oxygen Cough present: Yes Cough Description: Voluntary, Productive, Hacking Cough Frequency: Intermittent Sputum production: Yes Sputum Amount: Scant - Related Data Home oxygen amount: 3 liters Home Medications Medication Instructions Recorded Confirmed Albuterol Sulfate [Albuterol 2 puff IH QID PRN 07/30/15 12/01/16 Inhaler] Aspirin [Adult Low Dose Aspirin EC] 81 mg PO DAILY 07/30/15 12/01/16 Duloxetine HCl [Cymbalta] 60 mg PO DAILY 07/30/15 12/01/16 Fluticasone Propionate [Flovent 250 mcg IH BID 07/30/15 12/01/16 Diskus] Glimepiride [Amaryl] 4 mg PO DAILY 07/30/15 12/01/16 Liraglutide [Victoza 2-Apollo] 0.6 mg SQ QDPC 07/30/15 12/01/16 Omeprazole [PriLOSEC] 20 mg PO DAILY 07/30/15 12/01/16 Tiotropium [Spiriva] 18 mcg IH QDPC 07/30/15 12/01/16 Furosemide [Lasix] 20 mg PO DAILY 09/12/16 12/01/16 Atorvastatin [Lipitor] 20 mg PO HS 09/19/16 12/01/16 Carvedilol [Coreg] 25 mg PO BID 09/19/16 12/01/16 Cholecalciferol (Vitamin D3) 1,000 unit PO QAM 09/19/16 12/01/16 [Vitamin D3] Docusate [Colace] 100 mg PO DAILY 09/19/16 12/01/16 Insulin Glargine,Hum.rec.anlog 100 unit SQ AD 11/28/16 12/01/16 [Lantus Solostar] Lisinopril [Zestril] 5 mg PO DAILY 11/28/16 12/01/16 Potassium Chloride [K-Tab ER] 20 meq PO DAILY 11/28/16 12/01/16 Warfarin [Coumadin] 2.5 mg PO DAILY 11/28/16 12/01/16 Previous Rx's Medication Instructions Recorded Digoxin [Lanoxin] 0.125 mg PO DAILY #30 tablet 09/22/16 Azithromycin [Zithromax] 250 mg PO DAILY #3 tablet 12/01/16 Cefuroxime PO [Ceftin] 500 mg PO Q12HR #6 tablet 12/01/16 Lactobacillus [Culturelle] 1 each PO BID #6 cap.sprink 12/01/16 Allergies Allergy/AdvReac Type Severity Reaction Status Date / Time metformin [From Glucophage] AdvReac See Verified 09/19/16 19:39 Comments All systems ED: reviewed and negative except as stated. Past Medical History - Past Medical History Attestation: Yes The following information was validated with the patient. Source: patient, old records reviewed, nursing notes reviewed Medical history: Reports: arthritis, atrial fibrillation, CHF, COPD, diabetes, hyperlipidemia, hypertension, migraine Surgical history: Reports: cholecystectomy Psychiatric history: Reports: no psych history - Social History Smoking Status: Former smoker Smokeless Tobacco Status: No Alcohol use: Reports: none Drug use: Reports: none Physical Exam - General Limitations: no limitations General appearance: alert, in no apparent distress - Head Head exam: atraumatic, normocephalic, normal inspection - Eye Eye exam: Present: normal appearance, PERRL, EOMI - ENT ENT exam: normal exam, normal oropharynx, mucous membranes moist - Neck Neck exam: Present: normal inspection, full ROM, trachea midline - Chest Chest inspection: Present: normal inspection, symmetric chest wall rise - Respiratory Respiratory exam: Present: respiratory distress, wheezes, prolonged expiratory phase - Cardiovascular Cardiovascular exam: Present: tachycardia, irregular rhythm - Abdominal Exam Abdominal exam: Present: soft, Non-Tender, normal bowel sounds. Absent: tenderness, distention, guarding, rebound, rigidity - Extremities Exam Extremities exam: Present: normal inspection, full ROM, normal capillary refill. Absent: tenderness, pedal edema, calf tenderness - Expanded Lower Extremity Exam Neurovascular/Tendon exam: Present: normal capillary refill. Absent: motor deficit, sensory deficit, tendon deficit Gait: not tested/not observed - Back Exam Back exam: Present: normal inspection, full ROM. Absent: tenderness, vertebral tenderness - Neurological Exam Neurological exam: Present: alert, oriented X3 - Psychiatric Psychiatric exam: Present: normal affect, normal mood - Skin Skin exam: Present: warm, dry, intact, normal color. Absent: rash, diaphoresis , pallor Course Course Narrative: 1600: All lab tests, x-ray and EKG have been discussed with the patient and family. Patient continues with a heart rate about 110s to 120s with his atrial fibrillation. He is currently saturating 95% on nasal cannula with a blood pressure 164/99. He does have a troponin of 0.05 and I will contact Dr. Grey to see if he is comfortable continuing to observe this patient at this facility again. Patient has received Solu-Medrol, Levaquin and a DuoNeb aerosol and is feeling improved but still somewhat dyspneic at this time. 1620: Patient currently has heart rate of 116, saturation 97% blood pressure 121 /80. We have placed an additional page for Dr. Grey to discuss this patient's care. His callback almost immediately and does recommend a prior to his admission to this facility. A troponin has been ordered for 5 PM. 1740: The repeat troponin is 0.07. I have placed a call to Dr. Grey to discuss this patient's disposition. 1750: The patient has stated that he does not wish to go to another facility. I discussed care with Dr. Grey and, under those circumstances, he is willing to observe the patient here as long as he understands that if the troponin rises significantly more he will need to be transferred. The patient and family are agreeable with this. He is being coordinated for admission to the floor. Vital Signs Temperature 102.2 F H 12/01/16 14:49 Pulse Rate 114 12/01/16 14:49 Respiratory Rate 20 12/01/16 14:49 Blood Pressure 121/91 12/01/16 14:49 O2 Sat by Pulse Oximetry 93 12/01/16 14:49 Temperature 101.8 F H 12/01/16 16:19 Pulse Rate 115 12/01/16 16:19 Respiratory Rate 21 12/01/16 16:19 Blood Pressure 123/75 12/01/16 16:19 O2 Sat by Pulse Oximetry 97 12/01/16 16:19 Oxygen Delivery Oxygen Delivery Nasal Cannula Shortness of Breath/Dyspnea - Differential Diagnosis Likely: acute exacerbation of chronic obstructive airways disease, pneumonia - Medical Records Medical records reviewed: Yes I reviewed the patient's medical records. - Lab Data Lab results reviewed: Yes I reviewed the patient's lab results. Result diagrams: 12/01/16 15:20 12/01/16 15:20 Lab Results 12/01/16 12/01/16 12/01/16 Range/Units 15:20 15:20 15:20 WBC 14.8 H (4.3-11.1) K/mcL RBC 4.11 L (4.19-5.50) M/mcL Hgb 12.8 L (12.9-16.9) g/dL Hct 37.0 L (37.5-50.1) % MCV 90.0 (83.0-100.0) fL MCH 31.1 (28.0-33.3) pg MCHC 34.6 (31.6-35.5) g/dL RDW 13.8 (11.5-14.5) % Plt Count 291 (140-400) K/mcL MPV 11.1 (9.4-12.4) fL Immature Gran % 0.5 (0-4) % Seg Neutrophils % 84.8 % Lymphocytes % 4.7 % Monocytes % 9.8 % Eosinophils % 0.1 % Basophils % 0.1 % Neutrophils # 12.6 H (1.6-8.9) K/mcL Lymphocytes # 0.7 (0.6-4.6) K/mcL Monocytes # 1.5 H (0.0-1.3) K/mcL Eosinophils # 0.0 (0.0-0.6) K/mcL Basophils # 0.0 (0.0-0.2) K/mcL PT 21.0 H (9.4-12.1) Seconds INR 1.9 VBG Lactic Acid (0.5-2.2) mmol/L Sodium 133 L (136-145) mEq/L Potassium 4.1 (3.5-4.5) mEq/L Chloride 91 L (98-109) mEq/L Carbon Dioxide 28 (19-29) mEq/L BUN 23 D (8-26) mg/dL Creatinine 1.33 H (0.72-1.25) mg/dL Est GFR ( Amer) > 60 (> 60) Est GFR (Non-Af Amer) 51 L (> 60) BUN/Creatinine Ratio 17 (6-26) Glucose 316 H (70-99) mg/dL Calculated Osmolality 292 (280-300) Calcium 9.2 (8.6-10.8) mg/dL Troponin I (0-0.03) ng/mL B-Natriuretic Peptide (0-100) pg/mL 12/01/16 12/01/16 12/01/16 Range/Units 15:20 15:20 15:20 WBC (4.3-11.1) K/mcL RBC (4.19-5.50) M/mcL Hgb (12.9-16.9) g/dL Hct (37.5-50.1) % MCV (83.0-100.0) fL MCH (28.0-33.3) pg MCHC (31.6-35.5) g/dL RDW (11.5-14.5) % Plt Count (140-400) K/mcL MPV (9.4-12.4) fL Immature Gran % (0-4) % Seg Neutrophils % % Lymphocytes % % Monocytes % % Eosinophils % % Basophils % % Neutrophils # (1.6-8.9) K/mcL Lymphocytes # (0.6-4.6) K/mcL Monocytes # (0.0-1.3) K/mcL Eosinophils # (0.0-0.6) K/mcL Basophils # (0.0-0.2) K/mcL PT (9.4-12.1) Seconds INR VBG Lactic Acid 2.3 H (0.5-2.2) mmol/L Sodium (136-145) mEq/L Potassium (3.5-4.5) mEq/L Chloride (98-109) mEq/L Carbon Dioxide (19-29) mEq/L BUN (8-26) mg/dL Creatinine (0.72-1.25) mg/dL Est GFR ( Amer) (> 60) Est GFR (Non-Af Amer) (> 60) BUN/Creatinine Ratio (6-26) Glucose (70-99) mg/dL Calculated Osmolality (280-300) Calcium (8.6-10.8) mg/dL Troponin I 0.05 H* (0-0.03) ng/mL B-Natriuretic Peptide 250 H (0-100) pg/mL - Radiology Data Radiology results reviewed: Yes I reviewed the patient's radiology results. Single view chest x-rays performed. This looks similar to imaging from 2016. Patient has some mild increased vascular markings and some cardiomegaly. I do not see evidence for localized infiltrate, effusion, pneumothorax or overt heart failure. This is on my interpretation. Impressions Chest X-Ray 12/01/16 14:58 IMPRESSION: Pulmonary vascular congestion centrally with left basilar atelectasis. D/ / Sandip Summers MD / Sandip Summers MD Interpreting Provider: Sandip Summers MD - EKG Data EKG attestation: Yes I reviewed and interpreted this EKG. EKG shows normal: Reports: axis, intervals, QRS complexes Rate: Reports: tachycardia (123) Rhythm: Reports: A.Fib Interpretation: Reports: no acute changes, nonspecific ST-T wave changes, other (Tachycardia)
[2016-12-01] MEDS ORDERED: Acetaminophen 325 MG TABLET PO ONE (15:00)
[2016-12-01 15:32] LABS: Basophils % 0.1 %; Eosinophils % 0.1 %; Hemoglobin 12.8 g/dL (12.9-16.9); Immature Granulocytes % 0.5 % (0-4); Lymphocytes # 0.7 K/mcL (0.6-4.6); Lymphocytes % 4.7 %; Mean Corpuscular HGB Conc 34.6 g/dL (31.6-35.5); Mean Corpuscular Hemoglobin 31.1 pg (28.0-33.3); Mean Platelet Volume 11.1 fL (9.4-12.4); Monocytes % 9.8 %; Platelet Count 291 K/mcL (140-400); Red Blood Count 4.11 M/mcL (4.19-5.50); Red Cell Distribution Width 13.8 % (11.5-14.5); Segmented Neutrophils % 84.8 %
[2016-12-01 15:38] LABS: INR 1.9
[2016-12-01 15:40] LABS: Monocytes # 1.5 K/mcL (0.0-1.3); Neutrophils # 12.6 K/mcL (1.6-8.9)
[2016-12-01 15:45] LABS: BUN/Creatinine Ratio 17 (6-26); Blood Urea Nitrogen 23 mg/dL (8-26); Calcium 9.2 mg/dL (8.6-10.8); Carbon Dioxide 28 mEq/L (19-29); Chloride 91 mEq/L (98-109); Glucose 316 mg/dL (70-99); Osmolality,Calculated 292 (280-300); Potassium 4.1 mEq/L (3.5-4.5); Sodium 133 mEq/L (136-145); eGFR For African Americans > 60 (> 60); eGFR For Non-African Americans 51 (> 60)
[2016-12-01] MEDS ORDERED: Naloxone 0.4 MG/ML INJ IVP PRN (18:44)
[2016-12-01] MEDS ORDERED: Ondansetron 4 MG/2 ML VIAL IVP PRN (18:44)
[2016-12-01] MEDS ORDERED: D5% in Water 1,000 ML IVC PRN (18:44)
[2016-12-01] MEDS ORDERED: NON-FORMULARY MEDICATION 1 EACH EACH (Insulin Glargine,Hum.Rec.Anlog [Lantus Solostar] 100 SQ SCH (18:44)
[2016-12-01] MEDS ORDERED: MOM Conc 10 ML UD.LIQ PO PRN (18:44)
[2016-12-01] MEDS ORDERED: Dextrose Gel 15 GM PO PRN ×2 (18:44)
[2016-12-01] MEDS ORDERED: Albuterol 2.5 MG/3 ML NEBULIZER IH PRN (18:44)
[2016-12-01] MEDS ORDERED: *HR* Dextrose 50 % in Water (Syg) 50 ML SYRINGE IVP PRN (18:44)
[2016-12-01] MEDS ORDERED: Insulin Human Regular 20 UNIT in 0.9 % Sodium Chloride 10 ML IV ONE (19:54)
[2016-12-01] MEDS ORDERED: Insulin Human Regular 300 UNIT/3 ML per UNIT IV ONE (20:15)
[2016-12-01] MEDS: *HR* Warfarin 5 MG TABLET PO SCH (20:19)
[2016-12-01] MEDS: Lactobacillus 1 EACH CAP.SPRINK PO SCH (20:19)
[2016-12-01] MEDS ORDERED: *HR* Digoxin 0.5 MG/2 ML AMPUL IVP ONE (20:42)
[2016-12-01] MEDS ORDERED: Insulin DETEMIR 100 UNIT/ML per UNIT SQ ONE (21:00)
[2016-12-01] MEDS: Ipratropium/Albuterol Neb 3 ML IH SCH (21:17)
[2016-12-01] MEDS ORDERED: Azithromycin 500 MG in D5% in Water 250 ML IVPB ONE (23:44)
[2016-12-02] MEDS: Ipratropium/Albuterol Neb 3 ML IH SCH ×4 (04:19→22:22)
[2016-12-02] MEDS: Insulin LISPRO 300 UNITS/3 ML VIAL SQ SCH ×3 (07:49→16:47)
[2016-12-02] MEDS ORDERED: predniSONE 20 MG TABLET PO SCH (08:00)
[2016-12-02] MEDS ORDERED: *HR* Glimepiride 2 MG TABLET PO SCH (09:00)
[2016-12-02] MEDS ORDERED: Levofloxacin 750 MG/150 ML 750 MG/150 ML BAG IVPB SCH ×2 (09:00→11:15)
[2016-12-02] MEDS ORDERED: *HR* Glimepiride 4 MG TABLET PO SCH (09:00)
[2016-12-02] MEDS: Insulin DETEMIR 100 UNIT/ML X5UNITS SQ SCH ×2 (09:27→20:35)
[2016-12-02] MEDS: Lactobacillus 1 EACH CAP.SPRINK PO SCH ×2 (09:28→20:33)
[2016-12-02] MEDS: Aspirin Enteric Coated 81 MG Tablet PO SCH (09:28)
[2016-12-02] MEDS: Azithromycin 250 MG TABLET PO SCH (09:29)
[2016-12-02] MEDS: *HR* Digoxin 0.125 MG TABLET PO SCH (09:29)
[2016-12-02] MEDS: Furosemide 20 MG TABLET PO SCH (09:30)
[2016-12-02] MEDS: Cholecalciferol (D-3) 1,000 UNIT TABLET PO SCH (09:30)
[2016-12-02] MEDS: (Liraglutide [Victoza 2-Pak] 0.6 MG) SQ SCH (09:30)
--- NOTE | 2016-12-02 10:29 | Internal Med History&Physical ---
Date of Encounter: 12/02/16 Time of Encounter: 10:15 Assessment and Plan (1) Acute bronchitis Current visit: Yes Status: Acute He has underlying COPD also which is contributing to the dyspnea. He has been started on antibiotics. Clinical status and labs will be monitored . Qualifiers: Bronchitis organism: unspecified organism Qualified Code(s): J20.9 - Acute bronchitis, unspecified (2) Anemia Current visit: No Status: Chronic Anemia testing 09/14/2016 showed no factor deficiency. Suspect primarily due to chronic kidney disease. Qualifiers: Anemia type: unspecified type Qualified Code(s): D64.9 - Anemia, unspecified (3) CKD (chronic kidney disease) stage 3, GFR 30-59 ml/min Current visit: No Status: Chronic Will monitor renal indices as needed. (4) DM type 2 (diabetes mellitus, type 2) Current visit: No Status: Chronic Hemoglobin A1c was 6.4% on 09/13/2016. Continue home regimen. Qualifiers: Diabetes mellitus complication status: with kidney complications Diabetes mellitus complication detail: with chronic kidney disease Diabetes mellitus watermelon inspector insulin use: without fpc use Chronic kidney disease stage: stage 3 (moderate) Qualified Code(s): E11.22 - Type 2 diabetes mellitus with diabetic chronic kidney disease; N18.3 - Chronic kidney disease, stage 3 ( moderate) (5) Atrial fibrillation with RVR Current visit: No Status: Acute He was given Lanoxin last evening to slow ventricular rate. He has chronic AF. Continue present regimen. Internal Medicine - H&P: HPI Chief complaint: Dyspnea Admitted From: Home Plans for Post Hospital Care: Home History of present illness: Mr. Huston is a 86 year old male who was discharged home yesterday morning after admission the previous day for dyspnea. It was felt to be multifactorial in etiology with possible acute bronchitis present. He was discharged home with antibiotics and was given antibiotics during the hospital stay as well. Upon arriving home he felt more dyspneic and weak. He returned to the emergency room. Repeat cardiac enzymes show slight elevation but he declined transfer to [facility]. There was slight increase in leukocytosis. He was admitted to [facility] floor for ongoing care needs. He denies chest pain. His respiratory history is significant for having smoked from age [age] up to 4 packs per day. He wears oxygen at bedtime and when necessary during the daytime. He has a diagnosis of KIKO but refuses CPAP. 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 Past Med Surg Social Fam HX - Past Medical History Medical history: arthritis, atrial fibrillation, CHF, COPD, diabetes, hyperlipidemia, hypertension, migraine Psychiatric history: no psych history - Past Surgical History Surgical History: cholecystectomy - Social History Smoking Status: Former smoker Smokeless Tobacco Status: No Alcohol use: none Drug use: none - Family History Mother Living Status: Hx Family Cardiac Disorders: Yes ([place]) Hx Family Endocrine Disorder: Yes (DM2) Internal Medicine - H&P: Meds Albuterol Sulfate [Albuterol Inhaler] 2 puff IH QID PRN 07/30/15 [History] Aspirin [Adult Low Dose Aspirin EC] 81 mg PO DAILY 07/30/15 [History] Duloxetine HCl [Cymbalta] 60 mg PO DAILY 07/30/15 [History] Fluticasone Propionate [Flovent Diskus] 250 mcg IH BID 07/30/15 [History] Glimepiride [Amaryl] 4 mg PO DAILY 07/30/15 [History] Liraglutide [Victoza 2-Apollo] 0.6 mg SQ QDPC 07/30/15 [History] Omeprazole [PriLOSEC] 20 mg PO DAILY 07/30/15 [History] Tiotropium [Spiriva] 18 mcg IH QDPC 07/30/15 [History] Furosemide [Lasix] 20 mg PO DAILY 09/12/16 [History] Atorvastatin [Lipitor] 20 mg PO HS 09/19/16 [History] Carvedilol [Coreg] 25 mg PO BID 09/19/16 [History] Cholecalciferol (Vitamin D3) [Vitamin D3] 1,000 unit PO QAM 09/19/16 [History] Docusate [Colace] 100 mg PO DAILY 09/19/16 [History] Digoxin [Lanoxin] 0.125 mg PO DAILY #30 tablet 09/22/16 [Rx] Insulin Glargine,Hum.rec.anlog [Lantus Solostar] 100 unit SQ AD 11/28/16 [ History] Lisinopril [Zestril] 5 mg PO DAILY 11/28/16 [History] Potassium Chloride [K-Tab ER] 20 meq PO DAILY 11/28/16 [History] Warfarin [Coumadin] 2.5 mg PO DAILY 11/28/16 [History] Azithromycin [Zithromax] 250 mg PO DAILY #3 tablet 12/01/16 [Rx] Cefuroxime PO [Ceftin] 500 mg PO Q12HR #6 tablet 12/01/16 [Rx] Lactobacillus [Culturelle] 1 each PO BID #6 cap.sprink 12/01/16 [Rx] Allergies metformin [From Glucophage] Adverse Reaction (Verified 09/19/16 19:39) See Comments Reaction not known. All Systems PM: A 10-system review of systems was performed and is negative for pertinent findings except as documented above in the HPI. Review of systems: Review of systems from his history and physical of November 30 were reviewed and revised as below. Gen.: His weight has been stable at approximately 106 kg since his November 2014 [facility] hospitalization. Cardiovascular: He has history of hypertension and chronic atrial fibrillation. He was on Multaq but it has been discontinued since last admission because of ineffectiveness. He had echocardiogram April 2014 which showed diastolic dysfunction with LVEF of 55%. There was mild to moderate AR. He claims he had a heart cath and stress test 2008 without further intervention recommended. He denies DVT or pulmonary embolus. He states he did have a syncopal episode 6 days ago when he became lightheaded upon standing from a chair and lost consciousness for a few seconds and fell to the floor. There was no significant injury. Respiratory: As per history of present illness GI: He has had remote cholecystectomy. He denies disorders of his liver or exocrine pancreas. : No history of hematuria dysuria or kidney stones. He has CKD stage III and follows with a [facility] cage tender. Neurologic: He denies large distribution strokes or seizures. Endocrine: He was diagnosed with DM 2 approximately 2004. He has hyperlipidemia but no known thyroid disease. Hematology/oncology: He denies blood disorders or cancers. He has anemia with testing 09/14/2016 showing no factor deficiency . Psychiatric: He denies anxiety depression or other mental health issues Musk skeletal: He has gout and uses allopurinol. He has DJD but denies other bone joint or muscle disorders. - Constitutional Vitals: Temp Pulse Resp BP Pulse Ox 97.9 F 96 18 166/63 93 12/02/16 06:21 12/02/16 06:21 12/02/16 06:21 12/02/16 06:21 12/02/16 09:43 Exam: Gen.: He is a well-developed well-nourished male lying in bed who appears weak but in no acute distress. HEENT: Head is atraumatic and normocephalic. Eyes: EOMI. There is no scleral icterus. Mouth: Mucosa is moist. Neck: Supple and nontender. There is no thyromegaly or adenopathy noted. Heart: Irregularly irregular without murmurs or gallops.. Lungs: He has prolonged expiratory phase with scattered rhonchi in the right upper lung area. No wheezing is heard. Abdomen: Soft and nontender. No masses or guarding noted. Extremities: He is wearing BRUNA hose which I did not remove. There is no edema palpated through the hose. He has minimal DJD changes of his hands. Neurologic: Mental status: He is talkative seems to be a reliable historian. He appears weak and tired. Cranial nerves: Smile is symmetric. Forehead wrinkles bilaterally. Tongue protrudes midline. EOMI. Motor: There is no pronator drift. Cerebellar: Finger to nose is intact bilaterally. Skin: Warm and dry Internal Med - H&P Results - Labs CBC & Chem 7: 12/01/16 15:20 12/01/16 15:20 - VTE Documentation of Mechanical Device: Graduated compression elastic hosiery
--- NOTE | 2016-12-02 11:13 | Electrocardiograph Report ---
[address] [address] Test Date: 2016-12-01 Pat Name: Chun Huston Department: [id number] Room: [facility] Gender: M Agent Based Modeler: [id number] : [id number] Requested By: Oscar Adair Order Number: [id number] Reading MD: Shalini Alba Measurements Intervals Skip[place] Rate: 123 P: FL: 0 QRS: 38 QRSD: 93 T: 0 QT: 235 QTc: 308 Interpretive Statements ATRIAL FIBRILLATION WITH RAPID VENTRICULAR RESPONSE NONSPECIFIC ST \T\ T-WAVE ABNORMALITY ABNORMAL RHYTHM ECG Electronically Signed On 12-02-2016 11:12:15 EDT by Shalini Alba
[2016-12-02] MEDS: *HR* Warfarin 5 MG TABLET PO SCH (16:47)
[2016-12-03] MEDS: Ipratropium/Albuterol Neb 3 ML IH SCH ×4 (04:20→21:33)
[2016-12-03 05:17] LABS: Basophils % 0.1 %; Hematocrit 38.2 % (37.5-50.1); Hemoglobin 12.5 g/dL (12.9-16.9); Immature Granulocytes % 0.4 % (0-4); Lymphocytes # 1.4 K/mcL (0.6-4.6); Lymphocytes % 10.3 %; Mean Corpuscular HGB Conc 32.7 g/dL (31.6-35.5); Mean Corpuscular Hemoglobin 30.1 pg (28.0-33.3); Mean Platelet Volume 11.4 fL (9.4-12.4); Monocytes # 1.4 K/mcL (0.0-1.3); Neutrophils # 10.9 K/mcL (1.6-8.9); Platelet Count 285 K/mcL (140-400); Red Blood Count 4.15 M/mcL (4.19-5.50); Red Cell Distribution Width 13.8 % (11.5-14.5); Segmented Neutrophils % 79.2 %
[2016-12-03] MEDS: Insulin LISPRO 300 UNITS/3 ML VIAL SQ SCH ×3 (08:06→16:38)
[2016-12-03] MEDS: Furosemide 20 MG TABLET PO SCH (08:45)
[2016-12-03] MEDS: Cholecalciferol (D-3) 1,000 UNIT TABLET PO SCH (08:45)
[2016-12-03] MEDS: *HR* Digoxin 0.125 MG TABLET PO SCH (08:45)
[2016-12-03] MEDS: Lactobacillus 1 EACH CAP.SPRINK PO SCH ×2 (08:45→20:41)
[2016-12-03] MEDS: Azithromycin 250 MG TABLET PO SCH (08:45)
[2016-12-03] MEDS: *HR* Glimepiride 2 MG TABLET PO SCH (08:45)
[2016-12-03] MEDS: Aspirin Enteric Coated 81 MG Tablet PO SCH (08:45)
[2016-12-03] MEDS: (Liraglutide [Victoza 2-Pak] 0.6 MG) SQ SCH (08:46)
[2016-12-03] MEDS: Insulin DETEMIR 100 UNIT/ML X5UNITS SQ SCH ×2 (08:53→20:40)
[2016-12-03] MEDS: Acetaminophen 325 MG TABLET PO PRN ×2 (09:17→20:46)
--- NOTE | 2016-12-03 10:07 | Internal Med Progress Note ---
Date of Encounter: 12/03/16 Time of Encounter: 10:00 - Assessment and plan (1) Acute bronchitis Current Visit: Yes Status: Acute Assessment and plan: December 03. Continue antibiotics and Mucinex. Recheck labs in a.m. Qualifiers: Bronchitis organism: unspecified organism Qualified Code(s): J20.9 - Acute bronchitis, unspecified (2) Anemia Current Visit: No Status: Chronic Assessment and plan: December 03. Anemia testing 09/14/2016 showed no factor deficiency. Suspect primarily due to chronic kidney disease. Recheck CBC in a.m. Qualifiers: Anemia type: unspecified type Qualified Code(s): D64.9 - Anemia, unspecified (3) CKD (chronic kidney disease) stage 3, GFR 30-59 ml/min Current Visit: No Status: Chronic Assessment and plan: December 03. Will monitor renal indices as needed. (4) DM type 2 (diabetes mellitus, type 2) Current Visit: No Status: Chronic Assessment and plan: December 03. Blood sugars have improved. Continue present regimen. Qualifiers: Diabetes mellitus complication status: with kidney complications Diabetes mellitus complication detail: with chronic kidney disease Diabetes mellitus usp insulin use: without usp use Chronic kidney disease stage: stage 3 (moderate) Qualified Code(s): E11.22 - Type 2 diabetes mellitus with diabetic chronic kidney disease; N18.3 - Chronic kidney disease, stage 3 ( moderate) (5) Atrial fibrillation with RVR Current Visit: No Status: Acute - Subjective Interval history: December 03. He has no new complaints except he does not feel well overall. He is having some coughing with minimal productivity. - Constitutional Vitals: Temp Pulse Resp BP Pulse Ox 98.1 F 102 20 111/40 98 12/03/16 06:50 12/03/16 06:50 12/03/16 06:50 12/03/16 06:50 12/03/16 06:50 Exam: He has scattered rhonchi bilaterally on anterior auscultation. His heart is irregularly irregular with rate approximately 100/m. I reviewed his medications and lab results. Internal Medicine: Result - Labs CBC & Chem 7: 12/03/16 04:35 12/01/16 15:20 Labs: Short CBC 12/03/16 Range/Units 04:35 WBC 13.7 H (4.3-11.1) K/mcL Hgb 12.5 L (12.9-16.9) g/dL Hct 38.2 (37.5-50.1) % Plt Count 285 (140-400) K/mcL Neutrophils # 10.9 H (1.6-8.9) K/mcL - ABG Interpretation ABG results: PT/INR, D-dimer PT 21.0 Seconds (9.4-12.1) H 12/01/16 15:20 - VTE Documentation of Mechanical Device: Graduated compression elastic hosiery Consult Discharge Plan - Plan Referrals: Phill Burkett DO [Primary Care Provider] - 1 week
[2016-12-03] MEDS: *HR* Warfarin 5 MG TABLET PO SCH (16:39)
[2016-12-04] MEDS: Ipratropium/Albuterol Neb 3 ML IH SCH ×2 (05:04→09:54)
[2016-12-04] MEDS: Insulin LISPRO 300 UNITS/3 ML VIAL SQ SCH ×3 (07:25→16:29)
[2016-12-04] MEDS: Aspirin Enteric Coated 81 MG Tablet PO SCH (08:19)
[2016-12-04] MEDS: Lactobacillus 1 EACH CAP.SPRINK PO SCH ×2 (08:19→21:32)
[2016-12-04] MEDS: *HR* Digoxin 0.125 MG TABLET PO SCH (08:20)
[2016-12-04] MEDS: Furosemide 20 MG TABLET PO SCH (08:20)
[2016-12-04] MEDS: Cholecalciferol (D-3) 1,000 UNIT TABLET PO SCH (08:21)
[2016-12-04] MEDS: (Liraglutide [Victoza 2-Pak] 0.6 MG) SQ SCH (08:21)
[2016-12-04] MEDS: Azithromycin 250 MG TABLET PO SCH (08:22)
[2016-12-04] MEDS: *HR* Glimepiride 2 MG TABLET PO SCH (08:24)
[2016-12-04] MEDS ORDERED: Levofloxacin 750 MG/150 ML 750 MG/150 ML BAG IVPB SCH (09:00)
[2016-12-04] MEDS: Insulin DETEMIR 100 UNIT/ML X5UNITS SQ SCH ×2 (10:04→21:34)
--- NOTE | 2016-12-04 10:49 | Internal Med Progress Note ---
Date of Encounter: 12/04/16 Time of Encounter: 10:20 - Assessment and plan (1) Acute bronchitis Current Visit: Yes Status: Acute Assessment and plan: December 03. Continue antibiotics and Mucinex. Recheck labs in a.m. December 04. Continue present regimen. Lactic acid level is now normal. Qualifiers: Bronchitis organism: unspecified organism Qualified Code(s): J20.9 - Acute bronchitis, unspecified (2) Anemia Current Visit: No Status: Chronic Assessment and plan: December 03. Anemia testing 09/14/2016 showed no factor deficiency. Suspect primarily due to chronic kidney disease. Recheck CBC in a.m. December 04. Recheck labs in a.m. Qualifiers: Anemia type: unspecified type Qualified Code(s): D64.9 - Anemia, unspecified (3) CKD (chronic kidney disease) stage 3, GFR 30-59 ml/min Current Visit: No Status: Chronic Assessment and plan: December 03. Will monitor renal indices as needed. (4) DM type 2 (diabetes mellitus, type 2) Current Visit: No Status: Chronic Assessment and plan: December 03. Blood sugars have improved. Continue present regimen. December 04. Blood sugars have dropped low on occasion. Will slightly reduce Levemir/Lantus dose. Qualifiers: Diabetes mellitus complication status: with kidney complications Diabetes mellitus complication detail: with chronic kidney disease Diabetes mellitus [facility] long term care insulin use: without [facility] long term care use Chronic kidney disease stage: stage 3 (moderate) Qualified Code(s): E11.22 - Type 2 diabetes mellitus with diabetic chronic kidney disease; N18.3 - Chronic kidney disease, stage 3 ( moderate) (5) Atrial fibrillation with RVR Current Visit: No Status: Acute Assessment and plan: December 04. Rate is controlled. Continue Coreg, Lanoxin and Coumadin - Subjective Interval history: December 03. He has no new complaints except he does not feel well overall. He is having some coughing with minimal productivity. December 04. He states he feels minimally improved from yesterday. - Constitutional Vitals: Temp Pulse Resp BP Pulse Ox 97.8 F 107 16 126/53 96 12/04/16 06:18 12/04/16 08:13 12/04/16 09:56 12/04/16 08:13 12/04/16 09:56 Exam: His heart is irregularly irregular. Lungs are clear anteriorly. Extremities showed no edema. He is wearing BRUNA hose. I reviewed his medications and lab results. Internal Medicine: Result - Labs CBC & Chem 7: 12/03/16 04:35 12/01/16 15:20 - ABG Interpretation ABG results: PT/INR, D-dimer PT 21.0 Seconds (9.4-12.1) H 12/01/16 15:20 - VTE Documentation of Mechanical Device: Graduated compression elastic hosiery Consult Discharge Plan - Plan Referrals: Phill Burkett DO [Primary Care Provider] - 1 week
[2016-12-04] MEDS: Ipratropium/Albuterol Neb 3 ML IH PRN (16:31)
[2016-12-04] MEDS: *HR* Warfarin 5 MG TABLET PO SCH (18:07)
[2016-12-05 05:51] LABS: Basophils % 0.1 %; Eosinophils # 0.1 K/mcL (0.0-0.6); Eosinophils % 1.5 %; Hematocrit 36.9 % (37.5-50.1); Hemoglobin 12.2 g/dL (12.9-16.9); Immature Granulocytes % 0.6 % (0-4); Lymphocytes # 1.1 K/mcL (0.6-4.6); Lymphocytes % 11.9 %; Mean Corpuscular HGB Conc 33.1 g/dL (31.6-35.5); Mean Corpuscular Hemoglobin 30.3 pg (28.0-33.3); Mean Corpuscular Volume 91.6 fL (83.0-100.0); Mean Platelet Volume 11.3 fL (9.4-12.4); Monocytes # 1.1 K/mcL (0.0-1.3); Monocytes % 12.2 %; Neutrophils # 6.9 K/mcL (1.6-8.9); Platelet Count 277 K/mcL (140-400); Red Blood Count 4.03 M/mcL (4.19-5.50); Red Cell Distribution Width 13.4 % (11.5-14.5); Segmented Neutrophils % 73.7 %
[2016-12-05 06:07] LABS: BUN/Creatinine Ratio 26 (6-26); Blood Urea Nitrogen 23 mg/dL (8-26); Calcium 9.7 mg/dL (8.6-10.8); Carbon Dioxide 32 mEq/L (19-29); Chloride 94 mEq/L (98-109); Glucose 66 mg/dL (70-99); Osmolality,Calculated 282 (280-300); Potassium 4.3 mEq/L (3.5-4.5); Sodium 135 mEq/L (136-145); eGFR For African Americans > 60 (> 60); eGFR For Non-African Americans > 60 (> 60)
[2016-12-05 06:30] LABS: INR 1.3; Prothrombin Time 14.4 Seconds (9.4-12.1)
[2016-12-05] MEDS: Insulin LISPRO 300 UNITS/3 ML VIAL SQ SCH ×3 (07:45→16:15)
[2016-12-05] MEDS: *HR* Glimepiride 2 MG TABLET PO SCH (08:42)
[2016-12-05] MEDS: Azithromycin 250 MG TABLET PO SCH (08:43)
[2016-12-05] MEDS: Lactobacillus 1 EACH CAP.SPRINK PO SCH (08:43)
[2016-12-05] MEDS: Aspirin Enteric Coated 81 MG Tablet PO SCH (08:43)
[2016-12-05] MEDS: Cholecalciferol (D-3) 1,000 UNIT TABLET PO SCH (08:43)
[2016-12-05] MEDS: *HR* Digoxin 0.125 MG TABLET PO SCH (08:43)
[2016-12-05] MEDS: Furosemide 20 MG TABLET PO SCH (08:43)
[2016-12-05] MEDS: (Liraglutide [Victoza 2-Pak] 0.6 MG) SQ SCH (12:02)
[2016-12-05] MEDS: Insulin DETEMIR 100 UNIT/ML X5UNITS SQ SCH (12:05)
[2016-12-05] MEDS: Ipratropium/Albuterol Neb 3 ML IH PRN (13:07)
[2016-12-05 15:37] VITALS: BP 124/65
--- NOTE | 2016-12-05 16:00 | Discharge Summary ---
Date of Encounter: 12/05/16 Time of Encounter: 10:00 - Discharge Diagnosis (1) Acute bronchitis Priority: Primary Status: Acute Qualifiers: Bronchitis organism: unspecified organism Qualified Code(s): J20.9 - Acute bronchitis, unspecified (2) Anemia Priority: Secondary Status: Chronic Qualifiers: Anemia type: unspecified type Qualified Code(s): D64.9 - Anemia, unspecified (3) CKD (chronic kidney disease) stage 3, GFR 30-59 ml/min Priority: Secondary Status: Chronic (4) DM type 2 (diabetes mellitus, type 2) Priority: Secondary Status: Chronic Qualifiers: Diabetes mellitus complication status: with kidney complications Diabetes mellitus complication detail: with chronic kidney disease Diabetes mellitus [facility] insulin use: without [facility] use Chronic kidney disease stage: stage 3 (moderate) Qualified Code(s): E11.22 - Type 2 diabetes mellitus with diabetic chronic kidney disease; N18.3 - Chronic kidney disease, stage 3 ( moderate) (5) Atrial fibrillation with RVR Priority: Secondary Status: Chronic - Discharge Medications Prescriptions: Levofloxacin [Levaquin] 500 mg PO DAILY 2 Days Home Medications: Albuterol Sulfate [Albuterol Inhaler] 2 puff IH QID PRN 07/30/15 [History] Aspirin [Adult Low Dose Aspirin EC] 81 mg PO DAILY 07/30/15 [History] Duloxetine HCl [Cymbalta] 60 mg PO DAILY 07/30/15 [History] Fluticasone Propionate [Flovent Diskus] 250 mcg IH BID 07/30/15 [History] Glimepiride [Amaryl] 4 mg PO DAILY 07/30/15 [History] Liraglutide [Victoza 2-Apollo] 0.6 mg SQ QDPC 07/30/15 [History] Omeprazole [PriLOSEC] 20 mg PO DAILY 07/30/15 [History] Tiotropium [Spiriva] 18 mcg IH QDPC 07/30/15 [History] Furosemide [Lasix] 20 mg PO DAILY 09/12/16 [History] Atorvastatin [Lipitor] 20 mg PO HS 09/19/16 [History] Carvedilol [Coreg] 25 mg PO BID 09/19/16 [History] Cholecalciferol (Vitamin D3) [Vitamin D3] 1,000 unit PO QAM 09/19/16 [History] Docusate [Colace] 100 mg PO DAILY 09/19/16 [History] Digoxin [Lanoxin] 0.125 mg PO DAILY #30 tablet 09/22/16 [Rx] Insulin Glargine,Hum.rec.anlog [Lantus Solostar] 100 unit SQ AD 11/28/16 [ History] Lisinopril [Zestril] 5 mg PO DAILY 11/28/16 [History] Potassium Chloride [K-Tab ER] 20 meq PO DAILY 11/28/16 [History] Warfarin [Coumadin] 2.5 mg PO DAILY 11/28/16 [History] Azithromycin [Zithromax] 250 mg PO DAILY 2 Days 12/05/16 [Rx] Lactobacillus [Culturelle] 1 each PO BID cap.sprink 12/05/16 [Rx] Levofloxacin [Levaquin] 500 mg PO DAILY 2 Days 12/05/16 [Rx] Allergies/Adverse Reactions: Allergies metformin [From Glucophage] Adverse Reaction (Verified 09/19/16 19:39) See Comments Reaction not known. Date of admission: 12/01/16 23:14 Primary care physician: Phill Burkett DO Consults: 12/05/16 10:37 Consult to Occupational Therapy [CONS] Routine Comment: Evaluate, develop and implement POC Reason for Consult: Weakness Consult to Physical Therapy [CONS] Routine Comment: Evaluate, develop and implement POC Reason for Consult: Weakness - Patient Status Disposition: Transfer Hospital Swing Bed Condition: Fair Overall status at discharge: patient is progressing back to baseline - Discharge Instructions - Diet and Activity Activity: as per physical therapy Diet: advance to your usual diet Hospital course: Mr. Huston is a 86 year old male who was discharged home December 01 after admission the previous day for dyspnea. It was felt to be multifactorial in etiology with possible acute bronchitis present. He was discharged home with antibiotics and was given antibiotics during the hospital stay as well. Upon arriving home he felt more dyspneic and weak. He returned to the emergency room. Repeat cardiac enzymes show slight elevation but he declined transfer to [facility]. There was slight increase in leukocytosis. He was admitted to [facility] floor for ongoing care needs. Initial orders were written by the emergency room physician. I saw him on December 02 and performed the history and physical. He continued on Levaquin and azithromycin with Lactobacillus during his acute care stay. His WBC normalized to 9.4 on December 05 with resolution of the left shift. He continued to feel weak however. He had physical therapy and occupational therapy evaluations done. It was felt he would benefit from ongoing care in swing bed. Arrangements were complete for discharge to swing bed on December 05. Creatinine decreased to 0.87 on the day of discharge to swing bed with estimated GFR greater than 60. - Time Spent with Patient Total time spent providing and/or coordinating discharge services: - Constitutional Vitals: Temp Pulse Resp BP Pulse Ox 97.9 F 94 16 124/65 95 12/05/16 15:33 12/05/16 15:33 12/05/16 15:33 12/05/16 15:33 12/05/16 15:33 - VTE Documentation of Mechanical Device: Graduated compression elastic hosiery
[2016-12-05] MEDS: *HR* Warfarin 5 MG TABLET PO SCH (17:03)
== END 2016-12-05 17:46 | disposition other institution (70) | DRG 191 ==
LOC: INPPIK 14:47 → EMEROOPIK 14:47 → INPPIK 18:41
PROVIDERS: ADMIT Internal Medicine; ATTEND Internal Medicine

== ENCOUNTER 2016-12-05 17:46 | Inpatient (IN) ==
[2016-12-05] MEDS ORDERED: Acetaminophen 325 MG TABLET PO PRN (18:24)
[2016-12-05] MEDS ORDERED: Albuterol 2.5 MG/3 ML NEBULIZER IH PRN (18:24)
[2016-12-05] MEDS ORDERED: MOM Conc 10 ML UD.LIQ PO PRN (18:26)
[2016-12-05] MEDS ORDERED: Naloxone 0.4 MG/ML INJ IVP PRN (18:27)
[2016-12-05] MEDS ORDERED: Ondansetron ODT 4 MG TAB.RAPDIS SL PRN (18:27)
[2016-12-05] MEDS ORDERED: D5% in Water 1,000 ML IVC PRN (18:31)
[2016-12-05] MEDS ORDERED: Dextrose Gel 15 GM PO PRN ×2 (18:31)
[2016-12-05] MEDS ORDERED: *HR* Dextrose 50 % in Water (Syg) 50 ML SYRINGE IVP PRN (18:31)
[2016-12-05] MEDS ORDERED: Insulin DETEMIR 100 UNIT/ML per UNIT SQ ONE (21:00)
[2016-12-05] MEDS: Lactobacillus 1 EACH CAP.SPRINK PO SCH (22:39)
[2016-12-06 06:05] LABS: Basophils % 0.2 %; Eosinophils # 0.1 K/mcL (0.0-0.6); Eosinophils % 0.8 %; Hematocrit 35.2 % (37.5-50.1); Hemoglobin 11.5 g/dL (12.9-16.9); Immature Granulocytes % 0.5 % (0-4); Lymphocytes # 1.4 K/mcL (0.6-4.6); Lymphocytes % 12.5 %; Mean Corpuscular HGB Conc 32.7 g/dL (31.6-35.5); Mean Corpuscular Hemoglobin 29.9 pg (28.0-33.3); Mean Corpuscular Volume 91.7 fL (83.0-100.0); Mean Platelet Volume 11.4 fL (9.4-12.4); Monocytes # 1.3 K/mcL (0.0-1.3); Monocytes % 12.2 %; Neutrophils # 8.1 K/mcL (1.6-8.9); Platelet Count 280 K/mcL (140-400); Red Blood Count 3.84 M/mcL (4.19-5.50); Red Cell Distribution Width 13.4 % (11.5-14.5); Segmented Neutrophils % 73.8 %
[2016-12-06 06:25] LABS: INR 1.3; Prothrombin Time 13.8 Seconds (9.4-12.1)
[2016-12-06 06:31] LABS: BUN/Creatinine Ratio 27 (6-26); Blood Urea Nitrogen 31 mg/dL (8-26); Calcium 9.3 mg/dL (8.6-10.8); Carbon Dioxide 33 mEq/L (19-29); Chloride 95 mEq/L (98-109); Glucose 159 mg/dL (70-99); Osmolality,Calculated 294 (280-300); Potassium 4.3 mEq/L (3.5-4.5); Sodium 137 mEq/L (136-145); eGFR For African Americans > 60 (> 60); eGFR For Non-African Americans > 60 (> 60)
[2016-12-06] MEDS ORDERED: LIRAGLUTIDE 0.6 MG SQ SCH (09:00)
[2016-12-06] MEDS ORDERED: *HR* Glimepiride 2 MG TABLET PO SCH (09:00)
[2016-12-06] MEDS: Azithromycin 250 MG TABLET PO SCH (09:39)
[2016-12-06] MEDS: levoFLOXacin 500 MG TABLET PO SCH (09:39)
[2016-12-06] MEDS: Lisinopril 20 MG TABLET PO SCH (09:40)
[2016-12-06] MEDS: Cholecalciferol (D-3) 1,000 UNIT TABLET PO SCH (09:40)
[2016-12-06] MEDS: Furosemide 20 MG TABLET PO SCH (09:40)
[2016-12-06] MEDS: Aspirin Enteric Coated 81 MG Tablet PO SCH (09:40)
[2016-12-06] MEDS: Lactobacillus 1 EACH CAP.SPRINK PO SCH ×2 (09:40→20:55)
[2016-12-06] MEDS: *HR* Digoxin 0.125 MG TABLET PO SCH (09:41)
[2016-12-06] MEDS: Insulin DETEMIR 100 UNIT/ML X5UNITS SQ SCH ×2 (10:19→20:56)
[2016-12-06] MEDS: *HR* Warfarin 5 MG TABLET PO SCH (17:59)
[2016-12-07] MEDS: Insulin DETEMIR 100 UNIT/ML X5UNITS SQ SCH ×2 (09:27→20:48)
[2016-12-07] MEDS: Furosemide 20 MG TABLET PO SCH (09:28)
[2016-12-07] MEDS: Azithromycin 250 MG TABLET PO SCH (09:28)
[2016-12-07] MEDS: Lactobacillus 1 EACH CAP.SPRINK PO SCH (09:28)
[2016-12-07] MEDS: levoFLOXacin 500 MG TABLET PO SCH (09:28)
[2016-12-07] MEDS: *HR* Digoxin 0.125 MG TABLET PO SCH (09:28)
[2016-12-07] MEDS: Aspirin Enteric Coated 81 MG Tablet PO SCH (09:28)
[2016-12-07] MEDS: Cholecalciferol (D-3) 1,000 UNIT TABLET PO SCH (09:28)
[2016-12-07] MEDS: *HR* Glimepiride 2 MG TABLET PO SCH (09:29)
[2016-12-07] MEDS: Lisinopril 20 MG TABLET PO SCH (09:29)
[2016-12-07] MEDS: LIRAGLUTIDE 0.6 MG SQ SCH (09:35)
--- NOTE | 2016-12-07 15:03 | Internal Med Progress Note ---
Date of Encounter: 12/07/16 Time of Encounter: 14:55 - Assessment and plan (1) Weakness Current Visit: Yes Status: Acute Assessment and plan: December 07. Continue PT and OT intervention. (2) Dyspnea Current Visit: No Status: Acute Assessment and plan: December 07. We will recheck labs in a.m. Qualifiers: Dyspnea type: shortness of breath Qualified Code(s): R06.02 - Shortness of breath (3) Chronic atrial fibrillation Current Visit: Yes Status: Chronic Assessment and plan: December 07. Continue Coumadin. Recheck labs in a.m. - Subjective Interval history: December 07. He was hospitalized in acute care December 01 with dyspnea felt to be due to bronchitis. He had clinical improvement but was felt to be too weak to safely return home. He was admitted to swing bed for ongoing therapy. - Constitutional Vitals: Temp Pulse Resp BP Pulse Ox 97.6 F 75 16 117/55 93 12/07/16 07:45 12/07/16 07:45 12/07/16 07:45 12/07/16 07:45 12/07/16 07:45 Exam: He is resting comfortably in bed and appears in no acute distress. His heart is irregularly irregular. Lungs are clear. Extremity show no edema. I reviewed his medications and lab results. Internal Medicine: Result - Labs CBC & Chem 7: 12/06/16 05:28 12/06/16 05:28 - ABG Interpretation ABG results: PT/INR, D-dimer PT 13.8 Seconds (9.4-12.1) H 12/06/16 05:28 - VTE Documentation of Mechanical Device: Graduated compression elastic hosiery Consult Discharge Plan - Plan Referrals: Sandip Grey MD [Primary Care Provider] - 1 week
[2016-12-07] MEDS: *HR* Warfarin 5 MG TABLET PO SCH (18:14)
[2016-12-08] MEDS: Ipratropium/Albuterol Neb 3 ML IH PRN (02:26)
[2016-12-08 06:11] LABS: Basophils % 0.2 %; Eosinophils # 0.1 K/mcL (0.0-0.6); Eosinophils % 0.5 %; Hematocrit 34.6 % (37.5-50.1); Hemoglobin 11.4 g/dL (12.9-16.9); Immature Granulocytes % 1.3 % (0-4); Lymphocytes # 1.1 K/mcL (0.6-4.6); Lymphocytes % 10.4 %; Mean Corpuscular HGB Conc 32.9 g/dL (31.6-35.5); Mean Corpuscular Hemoglobin 30.8 pg (28.0-33.3); Mean Corpuscular Volume 93.5 fL (83.0-100.0); Mean Platelet Volume 10.9 fL (9.4-12.4); Monocytes # 1.3 K/mcL (0.0-1.3); Monocytes % 12.8 %; Neutrophils # 7.8 K/mcL (1.6-8.9); Platelet Count 324 K/mcL (140-400); Red Cell Distribution Width 13.3 % (11.5-14.5); Segmented Neutrophils % 74.8 %
[2016-12-08 06:18] LABS: INR 1.3; Prothrombin Time 14.5 Seconds (9.4-12.1)
[2016-12-08 06:36] LABS: BUN/Creatinine Ratio 29 (6-26); Blood Urea Nitrogen 28 mg/dL (8-26); Calcium 9.3 mg/dL (8.6-10.8); Carbon Dioxide 32 mEq/L (19-29); Chloride 96 mEq/L (98-109); Glucose 190 mg/dL (70-99); Osmolality,Calculated 297 (280-300); Potassium 5.3 mEq/L (3.5-4.5); Sodium 138 mEq/L (136-145); eGFR For African Americans > 60 (> 60); eGFR For Non-African Americans > 60 (> 60)
[2016-12-08 06:45] LABS: Digoxin 1.1 ng/mL (0.8-2.0)
[2016-12-08] MEDS: Cholecalciferol (D-3) 1,000 UNIT TABLET PO SCH (09:37)
[2016-12-08] MEDS: Furosemide 20 MG TABLET PO SCH (09:38)
[2016-12-08] MEDS: Lisinopril 20 MG TABLET PO SCH (09:38)
[2016-12-08] MEDS: *HR* Glimepiride 2 MG TABLET PO SCH (09:39)
[2016-12-08] MEDS: *HR* Digoxin 0.125 MG TABLET PO SCH (09:39)
[2016-12-08] MEDS: Aspirin Enteric Coated 81 MG Tablet PO SCH (09:40)
[2016-12-08] MEDS: Azithromycin 250 MG TABLET PO SCH (09:40)
[2016-12-08] MEDS: LIRAGLUTIDE 0.6 MG SQ SCH (09:42)
[2016-12-08] MEDS: Insulin DETEMIR 100 UNIT/ML X5UNITS SQ SCH ×2 (09:45→19:44)
[2016-12-08] MEDS: *HR* Warfarin 5 MG TABLET PO SCH (17:35)
[2016-12-08] MEDS ORDERED: Insulin LISPRO 300 UNITS/3 ML VIAL SQ SCH (21:00)
[2016-12-09 06:09] VITALS: BP 169/65
[2016-12-09] MEDS: Insulin LISPRO 300 UNITS/3 ML VIAL SQ SCH ×2 (07:36→12:17)
[2016-12-09] MEDS: *HR* Glimepiride 2 MG TABLET PO SCH (07:41)
[2016-12-09] MEDS: *HR* Digoxin 0.125 MG TABLET PO SCH (07:42)
[2016-12-09] MEDS: Cholecalciferol (D-3) 1,000 UNIT TABLET PO SCH (07:42)
[2016-12-09] MEDS: Azithromycin 250 MG TABLET PO SCH (07:42)
[2016-12-09] MEDS: Aspirin Enteric Coated 81 MG Tablet PO SCH (07:43)
[2016-12-09] MEDS: Furosemide 20 MG TABLET PO SCH (07:43)
[2016-12-09] MEDS: Lisinopril 20 MG TABLET PO SCH (07:43)
[2016-12-09] MEDS: LIRAGLUTIDE 0.6 MG SQ SCH (07:47)
[2016-12-09] MEDS: Ipratropium/Albuterol Neb 3 ML IH PRN (09:27)
[2016-12-09] MEDS: Insulin DETEMIR 100 UNIT/ML X5UNITS SQ SCH (09:48)
--- NOTE | 2016-12-09 10:15 | Discharge Summary ---
Date of Encounter: 12/09/16 Time of Encounter: 10:00 - Discharge Diagnosis (1) Weakness Priority: Primary Status: Acute (2) Dyspnea Priority: Secondary Status: Acute Qualifiers: Dyspnea type: shortness of breath Qualified Code(s): R06.02 - Shortness of breath (3) Chronic atrial fibrillation Priority: Secondary Status: Chronic - Discharge Medications Home Medications: Albuterol Sulfate [Albuterol Inhaler] 2 puff IH QID PRN 07/30/15 [History] Aspirin [Adult Low Dose Aspirin EC] 81 mg PO DAILY 07/30/15 [History] Duloxetine HCl [Cymbalta] 60 mg PO DAILY 07/30/15 [History] Fluticasone Propionate [Flovent Diskus] 250 mcg IH BID 07/30/15 [History] Glimepiride [Amaryl] 4 mg PO DAILY 07/30/15 [History] Liraglutide [Victoza 2-Apollo] 0.6 mg SQ QDPC 07/30/15 [History] Omeprazole [PriLOSEC] 20 mg PO DAILY 07/30/15 [History] Tiotropium [Spiriva] 18 mcg IH QDPC 07/30/15 [History] Furosemide [Lasix] 20 mg PO DAILY 09/12/16 [History] Atorvastatin [Lipitor] 20 mg PO HS 09/19/16 [History] Carvedilol [Coreg] 25 mg PO BID 09/19/16 [History] Cholecalciferol (Vitamin D3) [Vitamin D3] 1,000 unit PO QAM 09/19/16 [History] Docusate [Colace] 100 mg PO DAILY 09/19/16 [History] Digoxin [Lanoxin] 0.125 mg PO DAILY #30 tablet 09/22/16 [Rx] Lisinopril [Zestril] 5 mg PO DAILY 11/28/16 [History] Warfarin [Coumadin] 2.5 mg PO DAILY 11/28/16 [History] Insulin Glargine,Hum.rec.anlog [Lantus Solostar] 50 unit SQ AD #0 12/09/16 [Rx] Potassium Chloride [K-Tab ER] 10 meq PO DAILY #0 12/09/16 [Rx] Allergies/Adverse Reactions: Allergies metformin [From Glucophage] Adverse Reaction (Verified 09/19/16 19:39) See Comments Reaction not known. Date of admission: 12/05/16 17:54 Primary care physician: Phill Burkett D.O. Consults: 12/05/16 18:01 Consult to Occupational Therapy [CONS] Routine Comment: Evaluate, develop and implement plan of care Reason for Consult: weakness Consult to Physical Therapy [CONS] Routine Comment: Evaluate, develop and implement plan of care Reason for Consult: weakness Consult to Record Changer Assembler [CONS] Routine Reason for SW Consult: D/C Planning - Patient Status Disposition: Home Health Service Overall status at discharge: patient is progressing back to baseline - Discharge Instructions Follow Up With: Phill Burkett DO [Non-Partnered Physician] - 1 week - Diet and Activity Activity: resume usual activities as tolerated, wear oxygen at all times Diet: advance to your usual diet Hospital course: Mr. Huston is a 86 year old male who was hospitalized in acute care December 01 with dyspnea felt to be due to bronchitis. He had clinical improvement but was felt to be too weak to safely return home. He was admitted to swing bed for ongoing therapy. He had ongoing physical therapy and occupational therapy during his swing bed stay. He felt improved on December 09 and wished to be discharged home although he still had slight dyspnea. He has oxygen at home. Will follow with his PCP Dr. Burkett within 1 week. - Time Spent with Patient Total time spent providing and/or coordinating discharge services: - Constitutional Vitals: Temp Pulse Resp BP Pulse Ox 98.7 F 77 22 169/65 98 12/09/16 06:07 12/09/16 06:07 12/09/16 09:28 12/09/16 06:07 12/09/16 09:28 - VTE Documentation of Mechanical Device: Graduated compression elastic hosiery
--- NOTE | 2016-12-09 10:23 | Physician Discharge Referral ---
Home Health/Hosp Referral Info Transfer to: Home Health Attending Provider: Que Provider in Charge Post Discharge: PCP (Phill Burkett D.O.) - Diagnosis (1) Weakness Priority: Primary Status: Acute (2) Dyspnea Priority: Secondary Status: Acute (3) Chronic atrial fibrillation Priority: Secondary Status: Chronic - Respiratory Orders Oxygen / L per min (2 L/m nasal cannula as needed to keep saturation greater than 90%) Smoking Cessation: Smoking cessation has been advised. For more information, call the [place] Tobacco Quit Line at 5-519-CCRU-NOW. - Diet/Nutrition Diet/Nutrition Orders: Regular - Activity Activity Orders: Ambulate - Services Needed Following services are medically necessary services: Nursing, Home Health Aide, Physical Therapy, Occupational Therapy - Transfer Medications Home Medications: Albuterol Sulfate [Albuterol Inhaler] 2 puff IH QID PRN 07/30/15 [History] Aspirin [Adult Low Dose Aspirin EC] 81 mg PO DAILY 07/30/15 [History] Duloxetine HCl [Cymbalta] 60 mg PO DAILY 07/30/15 [History] Fluticasone Propionate [Flovent Diskus] 250 mcg IH BID 07/30/15 [History] Liraglutide [Victoza 2-Apollo] 0.6 mg SQ QDPC 07/30/15 [History] Omeprazole [PriLOSEC] 20 mg PO DAILY 07/30/15 [History] Tiotropium [Spiriva] 18 mcg IH QDPC 07/30/15 [History] Furosemide [Lasix] 20 mg PO DAILY 09/12/16 [History] Atorvastatin [Lipitor] 20 mg PO HS 09/19/16 [History] Carvedilol [Coreg] 25 mg PO BID 09/19/16 [History] Cholecalciferol (Vitamin D3) [Vitamin D3] 1,000 unit PO QAM 09/19/16 [History] Docusate [Colace] 100 mg PO DAILY 09/19/16 [History] Digoxin [Lanoxin] 0.125 mg PO DAILY #30 tablet 09/22/16 [Rx] Lisinopril [Zestril] 5 mg PO DAILY 11/28/16 [History] Warfarin [Coumadin] 2.5 mg PO DAILY 11/28/16 [History] Insulin Glargine,Hum.rec.anlog [Lantus Solostar] 50 unit SQ AD #0 12/09/16 [Rx] Potassium Chloride [K-Tab ER] 10 meq PO DAILY #0 12/09/16 [Rx] Allergies/Adverse Reactions: Allergies metformin [From Glucophage] Adverse Reaction (Verified 09/19/16 19:39) See Comments Reaction not known. Certification: Further, I certify that my clinical findings support that this patient is homebound (i.e. absences from home require considerable and taxing effort and are for medical reasons or temple services or infrequently or short duration when for other reasons) because: Homebound Reason: Leaving home requires considerable and taxing effort due to condition (Dyspnea on exertion.) Attestation: My signature below is to certify that this patient is under my care and that I, or nurse practitioner, or a physician's assistant signal maintainer working with me, has a face-to -face encounter with this patient.
== END 2016-12-09 16:00 | disposition home health service (06) | DRG 945 ==
LOC: INPPIK 17:54
PROVIDERS: ADMIT Internal Medicine; ATTEND Internal Medicine

== ENCOUNTER 2017-08-23 17:16 | Inpatient (IN) ==
[2017-08-23] MEDS ORDERED: 0.9 % Sodium Chloride 1,000 ML IVC ONE (17:26)
--- NOTE | 2017-08-23 17:34 | Emergency Department Note ---
Disposition Clinical Impression: Altered mental status Qualifiers: Altered mental status type: disorientation Qualified Code(s): R41.0 - Disorientation, unspecified Disposition: Admitted As Inpatient Condition: Fair Referrals: Phill Burkett DO [Primary Care Provider] - Forms: ED Satisfaction Letter Time of Disposition: 21:28 Altered Mental Status HPI - General Chief Complaint: ED Altered Mental Status Stated Complaint: ams, confusion not himself Time Seen by Provider: 08/23/17 17:19 Source: patient, family, EMS Mode of arrival: EMS Limitations: other (Confusion) Nursing Notes Reviewed: Yes Vital Signs Reviewed: Yes - History of Present Illness HPI Narrative: I spoke with the daughter because the patient was saying that he feels fine. Daughter describes today as the patient being up and down and continued to want to go back to bed and sleep. When up he seems confused. An example that confusion was that she had not him his insulin syringe that he can inject himself and he could not figure out how to do it and actually started putting his mouth. She did not note any focal neurologic deficit that would imply a stroke. She does not report the patient having been sick at all over the past couple days. MD complaint: confusion Onset (ago): hour(s) Timing confirmed by: family member Pain Severity: none Consistency of Symptoms: waxing and waning Associated symptoms: Reports: denies other symptoms - Related Data Home Medications Medication Instructions Recorded Confirmed Albuterol Sulfate [Albuterol 2 puff IH QID PRN 07/30/15 08/23/17 Inhaler] Duloxetine HCl [Cymbalta] 60 mg PO DAILY 07/30/15 08/23/17 Fluticasone Propionate [Flovent 250 mcg IH BID 07/30/15 08/23/17 Diskus] Omeprazole [PriLOSEC] 20 mg PO DAILY 07/30/15 08/23/17 Tiotropium [Spiriva] 18 mcg IH QDPC 07/30/15 08/23/17 Atorvastatin [Lipitor] 20 mg PO HS 09/19/16 08/23/17 Carvedilol [Coreg] 25 mg PO BID 09/19/16 08/23/17 Cholecalciferol (Vitamin D3) 1,000 unit PO QAM 09/19/16 08/23/17 [Vitamin D3] Docusate [Colace] 100 mg PO DAILY PRN 09/19/16 08/23/17 Lisinopril [Zestril] 5 mg PO DAILY 11/28/16 08/23/17 Warfarin [Coumadin] 2.5 mg PO 11/28/16 12/11/16 Acetaminophen [Tylenol] 500 mg PO Q6HR PRN 12/11/16 08/23/17 Aspirin 81 mg PO DAILY 12/11/16 08/23/17 Insulin Glargine,Hum.rec.anlog 20 - 25 unit SQ BID 12/11/16 08/23/17 [Lantus Solostar] Warfarin [Coumadin] 5 mg PO DAILY 12/11/16 08/23/17 Furosemide [Lasix] 20 mg PO DAILY 08/23/17 08/23/17 Previous Rx's Medication Instructions Recorded Digoxin [Lanoxin] 0.125 mg PO DAILY #30 tablet 09/22/16 Potassium Chloride [K-Tab ER] 10 meq PO DAILY #0 12/09/16 Amoxicillin/Clavulanate [Augmentin] 875 mg PO BIDWM #10 tablet 12/13/16 Insulin LISPRO [HumaLOG] 5 units SQ TIDAC 30 Days vial 12/13/16 Allergies Allergy/AdvReac Type Severity Reaction Status Date / Time gabapentin AdvReac See Verified 08/23/17 17:17 Comments metformin [From Glucophage] AdvReac See Verified 08/23/17 17:17 Comments All systems ED: reviewed and negative except as stated. Constitutional: Denies: fever ENT ED: Denies: ear pain, throat pain Cardiovascular: Denies: chest pain, palpitations Respiratory: Denies: cough Gastrointestinal: Denies: abdominal pain, vomiting, diarrhea Musculoskeletal: Denies: back pain Integumentary: Denies: rash Neurological: Denies: headache Past Medical History - Past Medical History Attestation: Yes The following information was validated with the patient. Source: patient, old records reviewed, obtained from family, nursing notes reviewed Medical history: Reports: arthritis, atrial fibrillation, CHF, COPD, diabetes, hyperlipidemia, hypertension, migraine Surgical history: Reports: cholecystectomy Psychiatric history: Reports: no psych history - Social History Smoking Status: Former smoker Smokeless Tobacco Status: No Alcohol use: Reports: none Drug use: Reports: none Physical Exam - General Limitations: other (Patient seems a bit confused) General appearance: alert, in no apparent distress - Head Head exam: atraumatic, normocephalic, normal inspection - Eye Eye exam: Present: normal appearance, PERRL, EOMI. Absent: scleral icterus, conjunctival injection - ENT ENT exam: mucous membranes dry, TM's normal bilaterally, normal external ear exam - Neck Neck exam: Present: normal inspection, full ROM, trachea midline. Absent: meningismus - Chest Chest inspection: Present: normal inspection, symmetric chest wall rise. Absent : tenderness - Respiratory Respiratory exam: Present: normal lung sounds bilaterally. Absent: respiratory distress, wheezes - Cardiovascular Cardiovascular exam: Present: regular rate, irregular rhythm, normal heart sounds - Abdominal Exam Abdominal exam: Present: soft, Non-Tender, normal bowel sounds. Absent: organomegaly, mass - Extremities Exam Extremities exam: Present: normal inspection, full ROM. Absent: pedal edema - Neurological Exam Neurological exam: Present: alert, CN II-XII intact. Absent: motor sensory deficit - Skin Skin exam: Present: warm, dry. Absent: rash Course Course Narrative: Patient presents with what sounds like confusion. During my evaluation he actually dozed off. He is following all my commands appropriately. I do not find any indication of focal neurologic deficit. I suspect this is more of a infectious/metabolic issue. I will do the CT of the head to look for stroke and hemorrhage. We will get a lab workup going to evaluate for other etiologies of altered mental status. She will be based on diagnostic results and reevaluation. - Reevaluation(s) Reevaluation #1: Patient's test results all came back basically normal except for a small elevation of his troponin. I did a repeat neurologic examination and found no focal neurologic deficits. I got the patient up and ambulated him and according to family examining like he always does. I am not sure if that bump in the troponin is significant or not. It is only very slightly elevated above the standard margin. I will repeat the troponin at the 3 hour yohana and make decision on disposition at that point. Time: 19:21 Reevaluation #2: Review troponin is come back lower than the original one. The rest of the workup is not giving me an answer as to the cause of this patient's altered mental status. He does continue to act altered. I repeated the neurologic examination and did not find any focal neurologic findings. Patient tries to climb out of bed. He seems agitated. I spoke with Dr. Grey, the hospitalist. He is going to admit the patient for further altered mental status workup. Time: 21:27 - Consultations Consultation #1: Dr. Grey, hospitalist - I discussed case with Dr. Grey. He accepted patient for admission to the hospital. Time: 21:28 Vital Signs Temperature 97.8 F 08/23/17 17:17 Pulse Rate 82 08/23/17 17:17 Respiratory Rate 18 08/23/17 17:17 Blood Pressure 143/74 08/23/17 17:17 O2 Sat by Pulse Oximetry 96 08/23/17 17:17 Temperature 97.8 F 08/23/17 17:17 Pulse Rate 83 08/23/17 20:18 Respiratory Rate 18 08/23/17 20:18 Blood Pressure 168/82 08/23/17 20:18 O2 Sat by Pulse Oximetry 97 08/23/17 20:18 Oxygen Delivery Oxygen Delivery Room Air Altered Mental Status - Medical Records Medical records reviewed: Yes I reviewed the patient's medical records. - Lab Data Lab results reviewed: Yes I reviewed the patient's lab results. Result diagrams: 08/23/17 17:50 08/23/17 17:50 Lab Results 08/23/17 08/23/17 08/23/17 Range/Units 17:50 17:50 17:50 WBC 10.5 (4.3-11.1) K/mcL RBC 4.72 (4.19-5.50) M/mcL Hgb 14.3 (12.9-16.9) g/dL Hct 42.2 (37.5-50.1) % MCV 89.4 (83.0-100.0) fL MCH 30.3 (28.0-33.3) pg MCHC 33.9 (31.6-35.5) g/dL RDW 13.1 (11.5-14.5) % Plt Count 279 (140-400) K/mcL MPV 11.1 (9.4-12.4) fL Immature Gran % 0.5 (0-4) % Seg Neutrophils % 75.1 % Lymphocytes % 14.5 % Monocytes % 9.0 % Eosinophils % 0.4 % Basophils % 0.5 % Neutrophils # 7.9 (1.6-8.9) K/mcL Lymphocytes # 1.5 (0.6-4.6) K/mcL Monocytes # 1.0 (0.0-1.3) K/mcL Eosinophils # 0.0 (0.0-0.6) K/mcL Basophils # 0.1 (0.0-0.2) K/mcL PT (9.4-12.1) Seconds INR APTT (26.0-36.0) Seconds Sample Site ABG pH (7.32-7.45) pH Units ABG pCO2 (35-45) mmHg ABG pO2 (85-104) mmHg ABG HCO3 (21-27) mEq/L ABG Total CO2 (20-26) mEq/L ABG O2 Saturation (95-98) % ABG Base Excess (-2 to 3) mEq/L [place] Test Inspired O2 (1-15=lpm [id number]=%) Sodium 132 L (136-145) mEq/L Potassium 4.3 (3.5-5.1) mEq/L Chloride 96 L (98-107) mEq/L Carbon Dioxide 30 H (23-29) mEq/L BUN 17 (8-23) mg/dL Creatinine 1.26 (0.70-1.30) mg/dL Est GFR ( Amer) > 60 (> 60) Est GFR (Non-Af Amer) 54 L (> 60) BUN/Creatinine Ratio 13 (6-26) Glucose 221 H (70-105) mg/dL Calculated Osmolality 282 (280-300) Lactic Acid 1.8 (0.5-2.2) mmol/L Calcium 8.9 (8.6-10.3) mg/dL Total Bilirubin 0.7 (0.3-1.0) mg/dL Direct Bilirubin 0.1 (0.0-0.2) mg/dL Indirect Bilirubin 0.6 (0.0-1.2) mg/dL AST 15 (13-39) Units/L ALT 10 (7-52) Units/L Alkaline Phosphatase 75 (34-104) Units/L Troponin I 0.06 H* (< 0.04) ng/mL Serum Total Protein 6.9 (6.4-8.9) g/dL Albumin 3.6 (3.5-5.7) g/dL Globulin 3.3 (2.4-3.5) g/dL Albumin/Globulin Ratio 1.1 (1.1-2.2) Urine Color (Yellow) Urine Clarity (Clear) Urine pH (5.0-8.0) pH Units Ur Specific [place] (1.010-1.025) Urine Protein (Neg-Trace) mg/dL Urine Glucose (UA) (Normal) mg/dL Urine Ketones (Negative) mg/dL Urine Blood (Negative) Urine Nitrite (Negative) Urine Bilirubin (Negative) Urine Urobilinogen (Normal) mg/dL Ur Leukocyte Esterase (Negative) Urine Microscopic RBC (0-3) per hpf Urine Microscopic WBC (0-3) per hpf Ur Squamous Epith Cells (None-Few) per lpf Amorphous Sediment (Few) Urine Bacteria (None-Few) per hpf Hyaline Casts (None-Few) per lpf Granular Casts (None Seen) per lpf Urine Mucus (Few) Ur Culture Indicated? (NO) Ethyl Alcohol < 10 H (Less than 10) mg/dL 08/23/17 08/23/17 08/23/17 Range/Units 17:50 17:56 18:04 WBC (4.3-11.1) K/mcL RBC (4.19-5.50) M/mcL Hgb (12.9-16.9) g/dL Hct (37.5-50.1) % MCV (83.0-100.0) fL MCH (28.0-33.3) pg MCHC (31.6-35.5) g/dL RDW (11.5-14.5) % Plt Count (140-400) K/mcL MPV (9.4-12.4) fL Immature Gran % (0-4) % Seg Neutrophils % % Lymphocytes % % Monocytes % % Eosinophils % % Basophils % % Neutrophils # (1.6-8.9) K/mcL Lymphocytes # (0.6-4.6) K/mcL Monocytes # (0.0-1.3) K/mcL Eosinophils # (0.0-0.6) K/mcL Basophils # (0.0-0.2) K/mcL PT 28.1 H (9.4-12.1) Seconds INR 2.6 APTT 41.0 H (26.0-36.0) Seconds Sample Site R Radial ABG pH 7.41 (7.32-7.45) pH Units ABG pCO2 42 (35-45) mmHg ABG pO2 70 L (85-104) mmHg ABG HCO3 27 (21-27) mEq/L ABG Total CO2 28 H (20-26) mEq/L ABG O2 Saturation 94 L (95-98) % ABG Base Excess 2 (-2 to 3) mEq/L [place] Test Positive Inspired O2 21.0 (1-15=lpm [id number]=%) Sodium (136-145) mEq/L Potassium (3.5-5.1) mEq/L Chloride (98-107) mEq/L Carbon Dioxide (23-29) mEq/L BUN (8-23) mg/dL Creatinine (0.70-1.30) mg/dL Est GFR ( Amer) (> 60) Est GFR (Non-Af Amer) (> 60) BUN/Creatinine Ratio (6-26) Glucose (70-105) mg/dL Calculated Osmolality (280-300) Lactic Acid (0.5-2.2) mmol/L Calcium (8.6-10.3) mg/dL Total Bilirubin (0.3-1.0) mg/dL Direct Bilirubin (0.0-0.2) mg/dL Indirect Bilirubin (0.0-1.2) mg/dL AST (13-39) Units/L ALT (7-52) Units/L Alkaline Phosphatase (34-104) Units/L Troponin I (< 0.04) ng/mL Serum Total Protein (6.4-8.9) g/dL Albumin (3.5-5.7) g/dL Globulin (2.4-3.5) g/dL Albumin/Globulin Ratio (1.1-2.2) Urine Color Yellow (Yellow) Urine Clarity Slightly Cloudy A (Clear) Urine pH 6.5 (5.0-8.0) pH Units Ur Specific [place] 1.020 (1.010-1.025) Urine Protein 100 H (Neg-Trace) mg/dL Urine Glucose (UA) 100 H (Normal) mg/dL Urine Ketones Negative (Negative) mg/dL Urine Blood Large H (Negative) Urine Nitrite Negative (Negative) Urine Bilirubin Negative (Negative) Urine Urobilinogen Normal (Normal) mg/dL Ur Leukocyte Esterase Negative (Negative) Urine Microscopic RBC 30-50 H (0-3) per hpf Urine Microscopic WBC 3-5 H (0-3) per hpf Ur Squamous Epith Cells Few (None-Few) per lpf Amorphous Sediment Few (Few) Urine Bacteria Few (None-Few) per hpf Hyaline Casts Moderate H (None-Few) per lpf Granular Casts Few H (None Seen) per lpf Urine Mucus Few (Few) Ur Culture Indicated? NO (NO) Ethyl Alcohol (Less than 10) mg/dL 08/23/17 Range/Units 20:40 WBC (4.3-11.1) K/mcL RBC (4.19-5.50) M/mcL Hgb (12.9-16.9) g/dL Hct (37.5-50.1) % MCV (83.0-100.0) fL MCH (28.0-33.3) pg MCHC (31.6-35.5) g/dL RDW (11.5-14.5) % Plt Count (140-400) K/mcL MPV (9.4-12.4) fL Immature Gran % (0-4) % Seg Neutrophils % % Lymphocytes % % Monocytes % % Eosinophils % % Basophils % % Neutrophils # (1.6-8.9) K/mcL Lymphocytes # (0.6-4.6) K/mcL Monocytes # (0.0-1.3) K/mcL Eosinophils # (0.0-0.6) K/mcL Basophils # (0.0-0.2) K/mcL PT (9.4-12.1) Seconds INR APTT (26.0-36.0) Seconds Sample Site ABG pH (7.32-7.45) pH Units ABG pCO2 (35-45) mmHg ABG pO2 (85-104) mmHg ABG HCO3 (21-27) mEq/L ABG Total CO2 (20-26) mEq/L ABG O2 Saturation (95-98) % ABG Base Excess (-2 to 3) mEq/L [place] Test Inspired O2 (1-15=lpm [id number]=%) Sodium (136-145) mEq/L Potassium (3.5-5.1) mEq/L Chloride (98-107) mEq/L Carbon Dioxide (23-29) mEq/L BUN (8-23) mg/dL Creatinine (0.70-1.30) mg/dL Est GFR ( Amer) (> 60) Est GFR (Non-Af Amer) (> 60) BUN/Creatinine Ratio (6-26) Glucose (70-105) mg/dL Calculated Osmolality (280-300) Lactic Acid (0.5-2.2) mmol/L Calcium (8.6-10.3) mg/dL Total Bilirubin (0.3-1.0) mg/dL Direct Bilirubin (0.0-0.2) mg/dL Indirect Bilirubin (0.0-1.2) mg/dL AST (13-39) Units/L ALT (7-52) Units/L Alkaline Phosphatase (34-104) Units/L Troponin I 0.05 H* (< 0.04) ng/mL Serum Total Protein (6.4-8.9) g/dL Albumin (3.5-5.7) g/dL Globulin (2.4-3.5) g/dL Albumin/Globulin Ratio (1.1-2.2) Urine Color (Yellow) Urine Clarity (Clear) Urine pH (5.0-8.0) pH Units Ur Specific [place] (1.010-1.025) Urine Protein (Neg-Trace) mg/dL Urine Glucose (UA) (Normal) mg/dL Urine Ketones (Negative) mg/dL Urine Blood (Negative) Urine Nitrite (Negative) Urine Bilirubin (Negative) Urine Urobilinogen (Normal) mg/dL Ur Leukocyte Esterase (Negative) Urine Microscopic RBC (0-3) per hpf Urine Microscopic WBC (0-3) per hpf Ur Squamous Epith Cells (None-Few) per lpf Amorphous Sediment (Few) Urine Bacteria (None-Few) per hpf Hyaline Casts (None-Few) per lpf Granular Casts (None Seen) per lpf Urine Mucus (Few) Ur Culture Indicated? (NO) Ethyl Alcohol (Less than 10) mg/dL - Radiology Data Radiology results reviewed: Yes I reviewed the patient's radiology results. - EKG Data EKG attestation: Yes I reviewed and interpreted this EKG. EKG results narrative: EKG done at 1720 p.m. shows atrial fibrillation with a rate of 74. Normal axis. Good our progression across corneum. There are nonspecific ST/T-wave abnormalities. These are seen on previous EKGs. Except for the VT interval, intervals are normal. When compared to previous EKG there are: no significant changes Interpretation: other (Atrial fibrillation.) TPA Checklist - LKW: 3-4.5 hrs Add. Warnings/Precautions Patient/family understanding: The patient/family members have been counseled and understood the risk, benefit , and alternatives of treatment.
[2017-08-23 17:59] LABS: ABG Base Excess 2 mEq/L (-2 to 3); ABG HCO3 27 mEq/L (21-27); ABG Oxygen Saturation 94 % (95-98); ABG PCO2 42 mmHg (35-45); ABG PH 7.41 pH Units (7.32-7.45); ABG PO2 70 mmHg (85-104); ABG TCO2 28 mEq/L (20-26)
[2017-08-23 18:09] LABS: Bilirubin,Urine Negative (Negative); Blood,Urine Large (Negative); Clarity,Urine Slightly Cloudy (Clear); Color,Urine Yellow (Yellow); Glucose,Urine (UA) 100 mg/dL (Normal); Ketones,Urine Negative (Negative); Leukocyte Esterase,Urine Negative (Negative); Nitrite,Urine Negative (Negative); PH,Urine 6.5 pH Units (5.0-8.0); Protein,Urine 100 mg/dL (Neg-Trace); Urobilinogen,Urine Normal (Normal)
[2017-08-23 18:12] LABS: Basophils # 0.1 K/mcL (0.0-0.2); Basophils % 0.5 %; Eosinophils % 0.4 %; Hematocrit 42.2 % (37.5-50.1); Hemoglobin 14.3 g/dL (12.9-16.9); Immature Granulocytes % 0.5 % (0-4); Lymphocytes # 1.5 K/mcL (0.6-4.6); Lymphocytes % 14.5 %; Mean Corpuscular HGB Conc 33.9 g/dL (31.6-35.5); Mean Corpuscular Hemoglobin 30.3 pg (28.0-33.3); Mean Corpuscular Volume 89.4 fL (83.0-100.0); Mean Platelet Volume 11.1 fL (9.4-12.4); Neutrophils # 7.9 K/mcL (1.6-8.9); Platelet Count 279 K/mcL (140-400); Red Blood Count 4.72 M/mcL (4.19-5.50); Red Cell Distribution Width 13.1 % (11.5-14.5); Segmented Neutrophils % 75.1 %
[2017-08-23 18:13] LABS: INR 2.6; Prothrombin Time 28.1 Seconds (9.4-12.1)
[2017-08-23 18:15] LABS: Amorphous Sediment,Urine Few (Few); Bacteria,Urine Few per hpf (None-Few); Granular Casts,Urine Few per lpf (None Seen); Hyaline Casts,Urine Moderate per lpf (None-Few); Mucus,Urine Few (Few); RBC,Urine 30-50 per hpf (0-3); Squamous Epithelial Cell,Urine Few per lpf (None-Few)
[2017-08-23 18:21] LABS: Alanine Aminotransferase 10 Units/L (7-52); Albumin 3.6 g/dL (3.5-5.7); Albumin/Globulin Ratio 1.1 (1.1-2.2); Alkaline Phosphatase 75 Units/L (34-104); Aspartate Amino Transferase 15 Units/L (13-39); BUN/Creatinine Ratio 13 (6-26); Bilirubin,Direct 0.1 mg/dL (0.0-0.2); Bilirubin,Indirect 0.6 mg/dL (0.0-1.2); Bilirubin,Total 0.7 mg/dL (0.3-1.0); Blood Urea Nitrogen 17 mg/dL (8-23); Calcium 8.9 mg/dL (8.6-10.3); Carbon Dioxide 30 mEq/L (23-29); Chloride 96 mEq/L (98-107); Ethanol < 10 mg/dL (Less than 10); Globulin 3.3 g/dL (2.4-3.5); Glucose 221 mg/dL (70-105); Osmolality,Calculated 282 (280-300); Potassium 4.3 mEq/L (3.5-5.1); Sodium 132 mEq/L (136-145); Total Protein 6.9 g/dL (6.4-8.9); eGFR For African Americans > 60 (> 60); eGFR For Non-African Americans 54 (> 60)
[2017-08-23 18:27] LABS: Troponin I 0.06 ng/mL (< 0.04)
[2017-08-24 03:49] LABS: Basophils % 0.3 %; Eosinophils % 0.2 %; Hematocrit 39.2 % (37.5-50.1); Hemoglobin 13.4 g/dL (12.9-16.9); Immature Granulocytes % 0.3 % (0-4); Lymphocytes # 2.2 K/mcL (0.6-4.6); Lymphocytes % 21.5 %; Mean Corpuscular HGB Conc 34.2 g/dL (31.6-35.5); Mean Corpuscular Hemoglobin 29.8 pg (28.0-33.3); Mean Corpuscular Volume 87.3 fL (83.0-100.0); Mean Platelet Volume 10.8 fL (9.4-12.4); Monocytes # 1.1 K/mcL (0.0-1.3); Monocytes % 10.6 %; Neutrophils # 6.9 K/mcL (1.6-8.9); Platelet Count 280 K/mcL (140-400); Red Blood Count 4.49 M/mcL (4.19-5.50); Red Cell Distribution Width 13.1 % (11.5-14.5); Segmented Neutrophils % 67.1 %
[2017-08-24 04:08] LABS: BUN/Creatinine Ratio 15 (6-26); Blood Urea Nitrogen 18 mg/dL (8-23); Calcium 8.7 mg/dL (8.6-10.3); Carbon Dioxide 26 mEq/L (23-29); Chloride 95 mEq/L (98-107); Glucose 192 mg/dL (70-105); Osmolality,Calculated 281 (280-300); Potassium 3.7 mEq/L (3.5-5.1); Sodium 132 mEq/L (136-145); eGFR For African Americans > 60 (> 60); eGFR For Non-African Americans 57 (> 60)
[2017-08-24] MEDS ORDERED: FLUTICASONE PROPIONATE 250 MCG IH SCH (09:00)
[2017-08-24] MEDS ORDERED: Tiotropium 18 MCG inhalation IH SCH (09:00)
[2017-08-24] MEDS: Insulin LISPRO 300 UNITS/3 ML VIAL SQ SCH ×3 (09:06→19:34)
[2017-08-24] MEDS: Aspirin 81 MG TAB.CHEW PO SCH (09:07)
[2017-08-24] MEDS: *HR* Digoxin 0.125 MG TABLET PO SCH (09:07)
--- NOTE | 2017-08-24 10:31 | Internal Med History&Physical ---
Date of Encounter: 08/24/17 Time of Encounter: 10:10 Assessment and Plan (1) Altered mental status Current visit: Yes Status: Acute Head CT and labs in emergency room generally unremarkable. Will order stat urine tox screen and likely head MRI. Qualifiers: Altered mental status type: disorientation Qualified Code(s): R41.0 - Disorientation, unspecified (2) CKD (chronic kidney disease) stage 3, GFR 30-59 ml/min Current visit: No Status: Chronic We will monitor renal indices. (3) Chronic atrial fibrillation Current visit: No Status: Chronic Continue Coumadin (4) DM type 2 (diabetes mellitus, type 2) Current visit: No Status: Chronic Hold Lantus. Do Accu-Cheks with SSI. 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 Huston is a 87 year old male who came to emergency room after his daughter noted abnormal behavior and confusion. The emergency room record reports she noted he was attempting to squirt insulin into his mouth instead of injecting subcutaneously. He was evaluated in emergency room without clear etiology for confusion found. He was admitted to [facility] floor for ongoing care needs. He is lethargic and nonverbal at this time he cannot give any additional history. Past Med Surg Social Fam HX - Past Medical History Medical history: arthritis, atrial fibrillation, CHF, COPD, dementia, diabetes, hyperlipidemia, hypertension Psychiatric history: no psych history - Past Surgical History Surgical History: cholecystectomy - Social History Smoking Status: Former smoker Smokeless Tobacco Status: No Alcohol use: none Drug use: none - Family History Mother Living Status: Hx Family Cardiac Disorders: Yes ([place]) Hx Family Endocrine Disorder: Yes (DM2) Internal Medicine - H&P: Meds Albuterol Sulfate [Albuterol Inhaler] 2 puff IH QID PRN 07/30/15 [History] Duloxetine HCl [Cymbalta] 60 mg PO DAILY 07/30/15 [History] Fluticasone Propionate [Flovent Diskus] 250 mcg IH BID 07/30/15 [History] Omeprazole [PriLOSEC] 20 mg PO DAILY 07/30/15 [History] Tiotropium [Spiriva] 18 mcg IH QDPC 07/30/15 [History] Atorvastatin [Lipitor] 20 mg PO HS 09/19/16 [History] Carvedilol [Coreg] 25 mg PO BID 09/19/16 [History] Cholecalciferol (Vitamin D3) [Vitamin D3] 1,000 unit PO QAM 09/19/16 [History] Docusate [Colace] 100 mg PO DAILY PRN 09/19/16 [History] Digoxin [Lanoxin] 0.125 mg PO DAILY #30 tablet 09/22/16 [Rx] Lisinopril [Zestril] 5 mg PO DAILY 11/28/16 [History] Warfarin [Coumadin] 2.5 mg PO 11/28/16 [History] Potassium Chloride [K-Tab ER] 10 meq PO DAILY #0 12/09/16 [Rx] Acetaminophen [Tylenol] 500 mg PO Q6HR PRN 12/11/16 [History] Aspirin 81 mg PO DAILY 12/11/16 [History] Insulin Glargine,Hum.rec.anlog [Lantus Solostar] 20 - 25 unit SQ BID 12/11/16 [ History] Warfarin [Coumadin] 5 mg PO DAILY 12/11/16 [History] Amoxicillin/Clavulanate [Augmentin] 875 mg PO BIDWM #10 tablet 12/13/16 [Rx] Insulin LISPRO [HumaLOG] 5 units SQ TIDAC 30 Days vial 12/13/16 [Rx] Furosemide [Lasix] 20 mg PO DAILY 08/23/17 [History] 3 Allergy/AdvReac Type Severity Reaction Status Date / Time gabapentin AdvReac See Verified 08/23/17 17:17 Comments metformin [From Glucophage] AdvReac See Verified 08/23/17 17:17 Comments All Systems PM: A 10-system review of systems was performed and is negative for pertinent findings except as documented above in the HPI. Review of systems: Review of systems from his history and physical of November 2016 were reviewed and revised as below. Gen.: His weight has decreased from 100.97 kg on 12/05/2016 to 92.805 kg now Cardiovascular: He has history of hypertension and chronic atrial fibrillation. He had an echocardiogram 09/24/2016 which showed LVEF of 60%. There was indeterminate LV diastolic function noted. There was [id number] aortic stenosis, mild aortic regurgitation, mild mitral regurgitation, and mild tricuspid regurgitation. He claims he had a heart cath and stress test 2008 without further intervention recommended. He denies DVT or pulmonary embolus. Respiratory: He smoked from age [age] up to 4 packs per day. He wears oxygen at bedtime and when necessary during the daytime. He has a diagnosis of KIKO but refuses CPAP. 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 GI: He has had remote cholecystectomy. He denies disorders of his liver or exocrine pancreas. : No history of hematuria dysuria or kidney stones. He has CKD stage III and follows with a [place] clinical assessment manager. Neurologic: He denies large distribution strokes or seizures. Endocrine: He was diagnosed with DM 2 approximately 2004. He has hyperlipidemia but no known thyroid disease. Hematology/oncology: He denies blood disorders or cancers. He has anemia with testing 09/14/2016 showing no factor deficiency . Psychiatric: He denies anxiety depression or other mental health issues Musk skeletal: He has gout and uses allopurinol. He has DJD but denies other bone joint or muscle disorders. - Constitutional Vitals: Temp Pulse Resp BP Pulse Ox 98.2 F 87 18 104/64 94 08/24/17 06:31 08/24/17 06:31 08/24/17 06:31 08/24/17 06:31 08/24/17 06:31 Exam: Gen.: He is a well-developed well-nourished male lying in bed who is nonverbal. He is lethargic but does briefly awaken to voice and light touch. HEENT: Head is atraumatic and normal cephalic. Eyes: He has a conjugate gaze. There is no scleral icterus. Mouth: Mucosa is slightly dry. Neck: There is no thyromegaly or adenopathy noted. Heart: Irregularly irregular without murmurs or gallops Lungs: No wheezes or crackles are heard. Abdomen: Soft and nontender. No masses or guarding are noted. There is a curved incision in the upper abdominal area just to the right of midline. Extremities: There is no cyanosis edema or clubbing noted. Dorsalis pedis and posterior tibial pulses are trace palpable bilaterally. His feet are warm to touch. Neurologic: Mental status: He is nonverbal. He does not follow commands. Cranial nerves: There is no significant asymmetry of his face or nasolabial folds. He does not make spontaneous facial movements. EOMI is noted on random observation. Motor: He has equal arm tone on passive range of motion and moves his arms spontaneously occasionally without obvious motor deficits. No Babinski is noted. No further neurologic testing is attempted. Skin: Warm and dry. Internal Med - H&P Results - Labs CBC & Chem 7: 08/24/17 03:27 08/24/17 03:27 Labs: Short CBC 08/24/17 Range/Units 03:27 WBC 10.3 (4.3-11.1) K/mcL Hgb 13.4 (12.9-16.9) g/dL Hct 39.2 (37.5-50.1) % Plt Count 280 (140-400) K/mcL Neutrophils # 6.9 (1.6-8.9) K/mcL BMP 08/24/17 03:27 Sodium 132 L Potassium 3.7 Chloride 95 L Carbon Dioxide 26 BUN 18 Creatinine 1.20 Glucose 192 H Calcium 8.7 Cardiac Enzymes 08/24/17 08/24/17 Range/Units 03:27 08:38 Troponin I 0.04 H* 0.04 H* (< 0.04) ng/mL
[2017-08-24 12:05] LABS: Amphetamine Screen,Urine Negative ng/mL (Cutoff=1000); Barbiturate Screen,Urine Negative ng/mL (Cutoff=200); Benzodiazepines Screen,Urine Negative ng/mL (Cutoff=200); Cannabinoid Screen,Urine Negative ng/mL (Cutoff = 50); Cocaine Screen,Urine Negative ng/mL (Cutoff= 300); Opiate Screen,Urine Negative ng/mL (Cutoff=300); Phencyclidine Screen,Urine Negative ng/mL (Cutoff=25)
[2017-08-24] MEDS: *HR* HYDROcodone/Acet 5/325 mg TABLET PO PRN ×2 (15:27→20:45)
[2017-08-24] MEDS: *HR* Warfarin 5 MG TABLET PO SCH (20:44)
[2017-08-25] MEDS: *HR* Digoxin 0.125 MG TABLET PO SCH (08:11)
[2017-08-25] MEDS: Aspirin 81 MG TAB.CHEW PO SCH (08:12)
[2017-08-25] MEDS: Insulin LISPRO 300 UNITS/3 ML VIAL SQ SCH ×3 (08:12→17:29)
[2017-08-25] MEDS: Tiotropium 18 MCG inhalation IH SCH (10:16)
--- NOTE | 2017-08-25 10:16 | Internal Med Progress Note ---
Date of Encounter: 08/25/17 Time of Encounter: 10:05 - Assessment and plan (1) Altered mental status Current Visit: Yes Status: Acute Assessment and plan: Jerome 6. Improved. Suspect cerebral ischemia in left MCA distribution. Will order carotid ultrasound. Continue Coumadin and aspirin. Will add Plavix. Qualifiers: Altered mental status type: disorientation Qualified Code(s): R41.0 - Disorientation, unspecified (2) CKD (chronic kidney disease) stage 3, GFR 30-59 ml/min Current Visit: No Status: Chronic Assessment and plan: August 25. Will monitor renal indices. (3) Chronic atrial fibrillation Current Visit: No Status: Chronic Assessment and plan: August 25. Continue Coumadin (4) DM type 2 (diabetes mellitus, type 2) Current Visit: No Status: Chronic Assessment and plan: August 25. Will start basal insulin at low dose and continue Accu-Cheks with SSI. Qualifiers: Diabetes mellitus complication status: with kidney complications Diabetes mellitus complication detail: with chronic kidney disease Diabetes mellitus rat exterminator insulin use: without senior care use Chronic kidney disease stage: stage 3 (moderate) Qualified Code(s): E11.22 - Type 2 diabetes mellitus with diabetic chronic kidney disease; N18.3 - Chronic kidney disease, stage 3 ( moderate) - Subjective Interval history: August 25. He has no new complaints - Constitutional Vitals: Temp Pulse Resp BP Pulse Ox 98.7 F 77 18 91/48 96 08/25/17 06:48 08/25/17 06:48 08/25/17 06:48 08/25/17 06:48 08/25/17 06:48 Exam: He is lying in bed resting comfortably. He is more awake and able to answer a few questions. He denies pain or dyspnea. There appeared to be intermittent slight flattening of the right nasolabial fold. He had no pronator drift. He cannot do simple money math. His speech is delayed and he has to choose his words carefully and deliberately. I reviewed his medications labs and radiology reports. Internal Medicine: Result - Labs CBC & Chem 7: 08/24/17 03:27 08/24/17 03:27 - ABG Interpretation ABG results: ABG ABG pH 7.41 pH Units (7.32-7.45) 08/23/17 17:56 ABG pCO2 42 mmHg (35-45) 08/23/17 17:56 ABG pO2 70 mmHg (85-104) L 08/23/17 17:56 ABG O2 Saturation 94 % (95-98) L 08/23/17 17:56 PT/INR, D-dimer PT 28.1 Seconds (9.4-12.1) H 08/23/17 17:50 - Impressions Impressions Brain MRI 08/24/17 12:15 IMPRESSION: 1. No acute infarct, intracranial hemorrhage, or significant mass effect. 2. 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 D/ / 08/24/2017 20:25:14 Luiz Schaffer MD / geraldine Interpreting Provider: Luiz Schaffer MD Consult Discharge Plan - Plan Referrals: Phill Burkett DO [Primary Care Provider] - 1 week
[2017-08-25] MEDS: Insulin DETEMIR 100 UNIT/ML X5UNITS SQ SCH ×2 (11:45→20:57)
[2017-08-25] MEDS: *HR* HYDROcodone/Acet 5/325 mg TABLET PO PRN (11:46)
[2017-08-25] MEDS: *HR* Warfarin 5 MG TABLET PO SCH (17:35)
[2017-08-25] MEDS: *HR* OxyCODONE/APAP 5/325 TABLET PO PRN (17:38)
--- NOTE | 2017-08-25 18:09 | Electrocardiograph Report ---
[address] [address] Test Date: 2017-08-23 Pat Name: Chun Huston Department: [id number] Room: [facility] Gender: M Behavioral Medical Director: [id number] : 1930 Requested By: Chun Quevedo Order Number: [id number] Reading MD: Shalini Alba Measurements Intervals [place] Rate: 74 P: [place]: 0 QRS: 19 QRSD: 94 T: -17 QT: 345 QTc: 372 Interpretive Statements ATRIAL FIBRILLATION NONSPECIFIC ST & T-WAVE ABNORMALITY ABNORMAL RHYTHM ECG Electronically Signed On 08-25-2017 18:07:48 EST by Shalini Alba
[2017-08-26] MEDS: Insulin LISPRO 300 UNITS/3 ML VIAL SQ SCH ×3 (07:52→17:10)
[2017-08-26] MEDS: Aspirin 81 MG TAB.CHEW PO SCH (09:35)
[2017-08-26] MEDS: *HR* Digoxin 0.125 MG TABLET PO SCH (09:35)
[2017-08-26] MEDS: Insulin DETEMIR 100 UNIT/ML X5UNITS SQ SCH ×2 (09:36→21:00)
[2017-08-26] MEDS: Tiotropium 18 MCG inhalation IH SCH (10:12)
--- NOTE | 2017-08-26 16:54 | Internal Med Progress Note ---
Date of Encounter: 08/26/17 Time of Encounter: 16:40 - Assessment and plan (1) Altered mental status Current Visit: Yes Status: Acute Assessment and plan: August 25. Improved. Suspect cerebral ischemia in left MCA distribution. Will order carotid ultrasound. Continue Coumadin and aspirin. Will add Plavix. August 26. Continues to improve. He will need ongoing anticoagulation and antiplatelet intervention. I suspect this is a left MCA distribution ischemic process. Will order therapy evaluation and monitor progress. He will need a minimum of 2-3 more days of hospitalization for monitoring and medication adjustment. Qualifiers: Altered mental status type: disorientation Qualified Code(s): R41.0 - Disorientation, unspecified (2) CKD (chronic kidney disease) stage 3, GFR 30-59 ml/min Current Visit: No Status: Chronic Assessment and plan: August 25. Will monitor renal indices. August 26. We will recheck labs in a.m. (3) Chronic atrial fibrillation Current Visit: No Status: Chronic Assessment and plan: August 25. Continue Coumadin (4) DM type 2 (diabetes mellitus, type 2) Current Visit: No Status: Chronic Assessment and plan: August 25. Will start basal insulin at low dose and continue Accu-Cheks with SSI. August 26. Blood sugars minimally changed. We will continue basal insulin and Accu-Cheks with SSI. Qualifiers: Diabetes mellitus complication status: with kidney complications Diabetes mellitus complication detail: with chronic kidney disease Diabetes mellitus senior living insulin use: without continuous churn buttermaker use Chronic kidney disease stage: stage 3 (moderate) Qualified Code(s): E11.22 - Type 2 diabetes mellitus with diabetic chronic kidney disease; N18.3 - Chronic kidney disease, stage 3 ( moderate) (5) Urinary retention Current Visit: Yes Status: Acute Assessment and plan: August 26. Will start Proscar and Flomax - Subjective Interval history: August 25. He has no new complaints August 26. He has no new complaints and feels better. - Constitutional Vitals: Temp Pulse Resp BP Pulse Ox 98.0 F 86 17 128/72 94 08/26/17 15:05 08/26/17 15:05 08/26/17 15:05 08/26/17 15:05 08/26/17 15:05 Exam: He is resting comfortably in bed. There appears slight flattening of the right nasolabial fold at rest. His smile is symmetric. EOMI. There is no pronator drift. Rapid finger movements are symmetric. His speech is generally appropriate. I reviewed his carotid ultrasound report showing no significant stenosis. Internal Medicine: Result - Labs CBC & Chem 7: 08/24/17 03:27 08/24/17 03:27 - ABG Interpretation ABG results: ABG ABG pH 7.41 pH Units (7.32-7.45) 08/23/17 17:56 ABG pCO2 42 mmHg (35-45) 08/23/17 17:56 ABG pO2 70 mmHg (85-104) L 08/23/17 17:56 ABG O2 Saturation 94 % (95-98) L 08/23/17 17:56 PT/INR, D-dimer PT 28.1 Seconds (9.4-12.1) H 08/23/17 17:50 Consult Discharge Plan - Plan Referrals: Phill Burkett, [Primary Care Provider] - 1 week
[2017-08-26] MEDS: *HR* Warfarin 5 MG TABLET PO SCH (19:03)
[2017-08-26] MEDS: Finasteride 5 MG TABLET PO SCH (19:05)
[2017-08-27 06:30] LABS: Basophils % 0.5 %; Eosinophils # 0.2 K/mcL (0.0-0.6); Hematocrit 38.4 % (37.5-50.1); Immature Granulocytes % 0.4 % (0-4); Mean Corpuscular HGB Conc 33.9 g/dL (31.6-35.5); Mean Corpuscular Volume 88.7 fL (83.0-100.0); Mean Platelet Volume 12.5 fL (9.4-12.4); Monocytes # 0.8 K/mcL (0.0-1.3); Platelet Count 210 K/mcL (140-400); Red Blood Count 4.33 M/mcL (4.19-5.50)
[2017-08-27 06:55] LABS: INR 2.2; Prothrombin Time 23.7 Seconds (9.4-12.1)
[2017-08-27 07:04] LABS: BUN/Creatinine Ratio 20 (6-26); Blood Urea Nitrogen 25 mg/dL (8-23); Carbon Dioxide 30 mEq/L (23-29); Chloride 98 mEq/L (98-107); Glucose 173 mg/dL (70-105); Osmolality,Calculated 291 (280-300); Potassium 3.6 mEq/L (3.5-5.1); Sodium 136 mEq/L (136-145); eGFR For African Americans > 60 (> 60); eGFR For Non-African Americans 53 (> 60)
[2017-08-27] MEDS: Insulin LISPRO 300 UNITS/3 ML VIAL SQ SCH ×3 (08:05→17:34)
[2017-08-27] MEDS: Tiotropium 18 MCG inhalation IH SCH (09:28)
--- NOTE | 2017-08-27 10:26 | Internal Med Progress Note ---
Date of Encounter: 08/27/17 Time of Encounter: 10:20 - Assessment and plan (1) Altered mental status Current Visit: Yes Status: Acute Assessment and plan: August 25. Improved. Suspect cerebral ischemia in left MCA distribution. Will order carotid ultrasound. Continue Coumadin and aspirin. Will add Plavix. August 26. Continues to improve. He will need ongoing anticoagulation and antiplatelet intervention. I suspect this is a left MCA distribution ischemic process. Will order therapy evaluation and monitor progress. He will need a minimum of 2-3 more days of hospitalization for monitoring and medication adjustment. August 27. Continue present regimen. Therapy consults have been ordered. Qualifiers: Altered mental status type: disorientation Qualified Code(s): R41.0 - Disorientation, unspecified (2) CKD (chronic kidney disease) stage 3, GFR 30-59 ml/min Current Visit: No Status: Chronic Assessment and plan: August 25. Will monitor renal indices. August 26. We will recheck labs in a.m. August 27. Renal indices are stable. (3) Chronic atrial fibrillation Current Visit: No Status: Chronic Assessment and plan: August 25. Continue Coumadin (4) DM type 2 (diabetes mellitus, type 2) Current Visit: No Status: Chronic Assessment and plan: August 25. Will start basal insulin at low dose and continue Accu-Cheks with SSI. August 26. Blood sugars minimally changed. We will continue basal insulin and Accu-Cheks with SSI. August 27. Blood sugars still elevated. Will increase basal insulin and continue Accu-Cheks with SSI. Qualifiers: Diabetes mellitus complication status: with kidney complications Diabetes mellitus complication detail: with chronic kidney disease Diabetes mellitus prison insulin use: without petroleum terminal plant operator use Chronic kidney disease stage: stage 3 (moderate) Qualified Code(s): E11.22 - Type 2 diabetes mellitus with diabetic chronic kidney disease; N18.3 - Chronic kidney disease, stage 3 ( moderate) (5) Urinary retention Current Visit: Yes Status: Acute Assessment and plan: August 26. Will start Proscar and Flomax - Subjective Interval history: August 25. He has no new complaints August 26. He has no new complaints and feels better. August 27. He has no new complaints. He states he still has a headache. - Constitutional Vitals: Temp Pulse Resp BP Pulse Ox 98.2 F 86 16 166/66 95 08/27/17 07:15 08/27/17 07:15 08/27/17 09:24 08/27/17 07:15 08/27/17 09:24 Exam: He is resting comfortably in bed and appears in no acute distress. His affect is bright and cheerful. His speech is appropriate. He seems closer to his baseline than at any time since he has been admitted. I reviewed his medications and lab results. Internal Medicine: Result - Labs CBC & Chem 7: 08/27/17 05:27 08/27/17 05:27 Labs: Short CBC 08/27/17 Range/Units 05:27 WBC 7.7 (4.3-11.1) K/mcL Hgb 13.0 (12.9-16.9) g/dL Hct 38.4 (37.5-50.1) % Plt Count 210 (140-400) K/mcL BMP 08/27/17 05:27 Sodium 136 Potassium 3.6 Chloride 98 Carbon Dioxide 30 H BUN 25 H Creatinine 1.28 Glucose 173 H Calcium 9.0 - ABG Interpretation ABG results: ABG ABG pH 7.41 pH Units (7.32-7.45) 08/23/17 17:56 ABG pCO2 42 mmHg (35-45) 08/23/17 17:56 ABG pO2 70 mmHg (85-104) L 08/23/17 17:56 ABG O2 Saturation 94 % (95-98) L 08/23/17 17:56 PT/INR, D-dimer PT 23.7 Seconds (9.4-12.1) H 08/27/17 05:27 Consult Discharge Plan - Plan Referrals: Phill Burkett DO [Primary Care Provider] - 1 week
[2017-08-27] MEDS: Finasteride 5 MG TABLET PO SCH (11:04)
[2017-08-27] MEDS: Aspirin 81 MG TAB.CHEW PO SCH (11:04)
[2017-08-27] MEDS: *HR* Digoxin 0.125 MG TABLET PO SCH (11:04)
[2017-08-27 11:07] LABS: Lymphocytes # 1.8 K/mcL (0.6-4.6); Lymphocytes % 23.8 %; Monocytes % 10.5 %; Segmented Neutrophils % 61.8 %
[2017-08-27 11:11] LABS: Neutrophils # 4.8 K/mcL (1.6-8.9)
[2017-08-27] MEDS: Insulin DETEMIR 100 UNIT/ML X5UNITS SQ SCH ×2 (12:07→21:08)
[2017-08-27] MEDS: *HR* Warfarin 5 MG TABLET PO SCH (17:39)
[2017-08-27] MEDS: *HR* OxyCODONE/APAP 5/325 TABLET PO PRN (21:11)
[2017-08-28] MEDS ORDERED: ALPRAZolam 0.5 MG TABLET PO PRN (02:46)
[2017-08-28] MEDS: *HR* Digoxin 0.125 MG TABLET PO SCH (07:54)
[2017-08-28] MEDS: *HR* OxyCODONE/APAP 5/325 TABLET PO PRN ×2 (07:55→17:00)
[2017-08-28] MEDS: Aspirin 81 MG TAB.CHEW PO SCH (07:55)
[2017-08-28] MEDS: Finasteride 5 MG TABLET PO SCH (07:55)
[2017-08-28] MEDS: Insulin LISPRO 300 UNITS/3 ML VIAL SQ SCH ×3 (08:01→16:58)
[2017-08-28] MEDS: Insulin DETEMIR 100 UNIT/ML X5UNITS SQ SCH ×2 (09:24→21:53)
[2017-08-28] MEDS: Tiotropium 18 MCG inhalation IH SCH (10:04)
[2017-08-28] MEDS: *HR* Warfarin 5 MG TABLET PO SCH (17:00)
--- NOTE | 2017-08-28 18:12 | Internal Med Progress Note ---
Date of Encounter: 08/28/17 Time of Encounter: 18:05 - Assessment and plan (1) Altered mental status Current Visit: Yes Status: Acute Assessment and plan: August 25. Improved. Suspect cerebral ischemia in left MCA distribution. Will order carotid ultrasound. Continue Coumadin and aspirin. Will add Plavix. August 26. Continues to improve. He will need ongoing anticoagulation and antiplatelet intervention. I suspect this is a left MCA distribution ischemic process. Will order therapy evaluation and monitor progress. He will need a minimum of 2-3 more days of hospitalization for monitoring and medication adjustment. August 27. Continue present regimen. Therapy consults have been ordered. August 28. Will order speech therapy evaluation for intermittent cognition impairment Qualifiers: Altered mental status type: disorientation Qualified Code(s): R41.0 - Disorientation, unspecified (2) CKD (chronic kidney disease) stage 3, GFR 30-59 ml/min Current Visit: No Status: Chronic Assessment and plan: August 25. Will monitor renal indices. August 26. We will recheck labs in a.m. August 27. Renal indices are stable. (3) Chronic atrial fibrillation Current Visit: No Status: Chronic Assessment and plan: August 25. Continue Coumadin (4) DM type 2 (diabetes mellitus, type 2) Current Visit: No Status: Chronic Assessment and plan: August 25. Will start basal insulin at low dose and continue Accu-Cheks with SSI. August 26. Blood sugars minimally changed. We will continue basal insulin and Accu-Cheks with SSI. August 27. Blood sugars still elevated. Will increase basal insulin and continue Accu-Cheks with SSI. Qualifiers: Diabetes mellitus longterm insulin use: without long lines operator use Diabetes mellitus complication status: with kidney complications Diabetes mellitus complication detail: with chronic kidney disease Chronic kidney disease stage : stage 3 (moderate) Qualified Code(s): E11.22 - Type 2 diabetes mellitus with diabetic chronic kidney disease; N18.3 - Chronic kidney disease, stage 3 ( moderate) (5) Urinary retention Current Visit: Yes Status: Acute Assessment and plan: August 26. Will start Proscar and Flomax August 28. Schmid removed and patient is voiding adequately. - Subjective Interval history: August 25. He has no new complaints August 26. He has no new complaints and feels better. August 27. He has no new complaints. He states he still has a headache. August 28. He has no new complaints. He had agitation last evening and required Xanax. - Constitutional Vitals: Temp Pulse Resp BP Pulse Ox 97.2 F L 79 17 102/61 97 08/28/17 15:25 08/28/17 15:25 08/28/17 15:25 08/28/17 15:25 08/28/17 15:25 Exam: He is resting comfortably in bed and appears in no acute distress. His affect is bright and cheerful. His speech is minimal but appropriate. I reviewed his medications and lab results. Internal Medicine: Result - Labs CBC & Chem 7: 08/27/17 05:27 08/27/17 05:27 - ABG Interpretation ABG results: ABG ABG pH 7.41 pH Units (7.32-7.45) 08/23/17 17:56 ABG pCO2 42 mmHg (35-45) 08/23/17 17:56 ABG pO2 70 mmHg (85-104) L 08/23/17 17:56 ABG O2 Saturation 94 % (95-98) L 08/23/17 17:56 PT/INR, D-dimer PT 23.7 Seconds (9.4-12.1) H 08/27/17 05:27 Consult Discharge Plan - Plan Referrals: Phill Burkett DO [Primary Care Provider] - 1 week
[2017-08-29 07:01] VITALS: BP 115/51
--- NOTE | 2017-08-29 08:38 | Discharge Summary ---
Date of Encounter: 08/29/17 Time of Encounter: 08:25 - Discharge Diagnosis (1) Altered mental status Priority: Primary Status: Acute Qualifiers: Altered mental status type: disorientation Qualified Code(s): R41.0 - Disorientation, unspecified (2) CKD (chronic kidney disease) stage 3, GFR 30-59 ml/min Priority: Secondary Status: Chronic (3) Chronic atrial fibrillation Priority: Secondary Status: Chronic (4) DM type 2 (diabetes mellitus, type 2) Priority: Secondary Status: Chronic Qualifiers: Diabetes mellitus shelter insulin use: without shelter use Diabetes mellitus complication status: with kidney complications Diabetes mellitus complication detail: with chronic kidney disease Chronic kidney disease stage : stage 3 (moderate) Qualified Code(s): E11.22 - Type 2 diabetes mellitus with diabetic chronic kidney disease; N18.3 - Chronic kidney disease, stage 3 ( moderate) (5) Urinary retention Priority: Secondary Status: Resolved Hospital course: Mr. Huston is a 87 year old male who came to emergency room after his daughter noted abnormal behavior and confusion. The emergency room record reports she noted he was attempting to squirt insulin into his mouth instead of injecting subcutaneously. He was evaluated in emergency room without clear etiology for confusion found. He was admitted to [facility] floor for ongoing care needs. Initial orders were written by the emergency room physician. I saw him on August 24 and performed a history and physical. Head CT in emergency room is unremarkable. Urine tox screen showed no significant findings. MRI of the head was done to further evaluate. No significant pathology was seen. He was started on Plavix. Aspirin and Coumadin were continued. He had gradual improvement in his cognition and affect. He was near baseline when discharged to swing bed on August 29. Physical therapy and occupational therapy evaluations were done with ongoing intervention. A consult for speech therapy was placed for cognitive evaluation and intervention. He had urinary retention so a Schmid catheter was placed. He was started on Flomax and Proscar. The catheter was discontinued after 2 days and there was no recurrence of retention noted. There were no other new problems and on August 29 arrangements were complete for him to be discharged to swing bed for ongoing care needs. - Time Spent with Patient Total time spent providing and/or coordinating discharge services: - Discharge Medications Home Medications: Albuterol Sulfate [Albuterol Inhaler] 2 puff IH QID PRN 07/30/15 [History] Duloxetine HCl [Cymbalta] 60 mg PO DAILY 07/30/15 [History] Fluticasone Propionate [Flovent Diskus] 250 mcg IH BID 07/30/15 [History] Omeprazole [PriLOSEC] 20 mg PO DAILY 07/30/15 [History] Tiotropium [Spiriva] 18 mcg IH QDPC 07/30/15 [History] Atorvastatin [Lipitor] 20 mg PO HS 09/19/16 [History] Carvedilol [Coreg] 25 mg PO BID 09/19/16 [History] Cholecalciferol (Vitamin D3) [Vitamin D3] 1,000 unit PO QAM 09/19/16 [History] Docusate [Colace] 100 mg PO DAILY PRN 09/19/16 [History] Digoxin [Lanoxin] 0.125 mg PO DAILY #30 tablet 09/22/16 [Rx] Lisinopril [Zestril] 5 mg PO DAILY 11/28/16 [History] Potassium Chloride [K-Tab ER] 10 meq PO DAILY #0 12/09/16 [Rx] Acetaminophen [Tylenol] 500 mg PO Q6HR PRN 12/11/16 [History] Warfarin [Coumadin] 5 mg PO DAILY 12/11/16 [History] Insulin LISPRO [HumaLOG] 5 units SQ TIDAC 30 Days vial 12/13/16 [Rx] Aspirin 81 mg PO Q48H #0 08/29/17 [Rx] Finasteride [Proscar] 5 mg PO DAILY tablet 08/29/17 [Rx] Insulin DETEMIR [Levemir] 14 unit SQ BID [id number] 08/29/17 [Rx] Tamsulosin [Flomax] 0.4 mg PO DAILY capsule 08/29/17 [Rx] Allergies/Adverse Reactions: 3 Allergy/AdvReac Type Severity Reaction Status Date / Time gabapentin AdvReac See Verified 08/23/17 17:17 Comments metformin [From Glucophage] AdvReac See Verified 08/23/17 17:17 Comments Date of admission: 08/26/17 16:55 Primary care physician: Phill Burkett DO Consults: 08/28/17 18:11 Consult to Speech Therapy [CONS] Routine Comment: Evaluate, develop and implement POC Reason for Consult: Intermittently impaired cognition Call Completed: No - Constitutional Vitals: Temp Pulse Resp BP Pulse Ox 100.4 F H 96 18 115/51 94 08/29/17 06:59 08/29/17 06:59 08/29/17 06:59 08/29/17 06:59 08/29/17 06:59 - Patient Status Disposition: Transfer Hospital Swing Bed Condition: Fair Overall status at discharge: patient is progressing back to baseline - Discharge Instructions - Diet and Activity Activity: as per physical therapy Diet: diabetic diet
[2017-08-29] MEDS: Insulin DETEMIR 100 UNIT/ML X5UNITS SQ SCH (09:05)
[2017-08-29] MEDS: Insulin LISPRO 300 UNITS/3 ML VIAL SQ SCH ×2 (09:05→12:25)
[2017-08-29] MEDS: *HR* Digoxin 0.125 MG TABLET PO SCH (09:07)
[2017-08-29] MEDS: Finasteride 5 MG TABLET PO SCH (09:07)
[2017-08-29] MEDS: Aspirin 81 MG TAB.CHEW PO SCH (09:07)
[2017-08-29] MEDS: Tiotropium 18 MCG inhalation IH SCH (10:48)
== END 2017-08-29 13:39 | disposition other institution (70) | DRG 69 ==
LOC: EMEROOPIK 17:16 → INPPIK 17:16
PROVIDERS: ADMIT Internal Medicine; ATTEND Internal Medicine

== ENCOUNTER 2017-08-29 13:42 | Inpatient (IN) ==
[2017-08-29] MEDS ORDERED: ALPRAZolam 0.5 MG TABLET PO PRN (15:45)
[2017-08-29] MEDS: *HR* Warfarin 5 MG TABLET PO SCH (17:40)
[2017-08-29] MEDS: Insulin LISPRO 300 UNITS/3 ML VIAL SQ SCH (17:41)
[2017-08-29] MEDS: *HR* OxyCODONE/APAP 5/325 TABLET PO PRN (21:07)
[2017-08-29] MEDS: Insulin DETEMIR 100 UNIT/ML X5UNITS SQ SCH (21:09)
[2017-08-29] MEDS: Beclomethasone 80mcg MDI IH SCH (22:11)
[2017-08-30 05:48] LABS: Basophils % 0.4 %; Eosinophils # 0.2 K/mcL (0.0-0.6); Hemoglobin 11.6 g/dL (12.9-16.9); Immature Granulocytes % 0.4 % (0-4); Lymphocytes # 1.8 K/mcL (0.6-4.6); Lymphocytes % 22.6 %; Mean Corpuscular HGB Conc 33.1 g/dL (31.6-35.5); Mean Corpuscular Hemoglobin 29.8 pg (28.0-33.3); Mean Platelet Volume 12.2 fL (9.4-12.4); Monocytes # 0.9 K/mcL (0.0-1.3); Monocytes % 10.9 %; Platelet Count 229 K/mcL (140-400); Red Blood Count 3.89 M/mcL (4.19-5.50); Red Cell Distribution Width 13.2 % (11.5-14.5); Segmented Neutrophils % 63.7 %
[2017-08-30 05:54] LABS: INR 2.5; Prothrombin Time 27.4 Seconds (9.4-12.1)
[2017-08-30 05:57] LABS: Activated Partial Thrombo Time 35.2 Seconds (26.0-36.0)
[2017-08-30 06:12] LABS: BUN/Creatinine Ratio 25 (6-26); Blood Urea Nitrogen 31 mg/dL (8-23); Calcium 8.5 mg/dL (8.6-10.3); Carbon Dioxide 29 mEq/L (23-29); Chloride 99 mEq/L (98-107); Glucose 276 mg/dL (70-105); Osmolality,Calculated 292 (280-300); Potassium 4.4 mEq/L (3.5-5.1); Sodium 133 mEq/L (136-145); eGFR For African Americans > 60 (> 60); eGFR For Non-African Americans 54 (> 60)
[2017-08-30] MEDS: *HR* OxyCODONE/APAP 5/325 TABLET PO PRN ×3 (06:13→17:37)
[2017-08-30] MEDS: Insulin LISPRO 300 UNITS/3 ML VIAL SQ SCH ×3 (10:49→17:37)
[2017-08-30] MEDS: Insulin DETEMIR 100 UNIT/ML X5UNITS SQ SCH ×3 (10:49→20:55)
[2017-08-30] MEDS: Aspirin 81 MG TAB.CHEW PO SCH (10:50)
[2017-08-30] MEDS: *HR* Digoxin 0.125 MG TABLET PO SCH (10:50)
[2017-08-30] MEDS: Cholecalciferol (D-3) 1,000 UNIT TABLET PO SCH (10:51)
[2017-08-30] MEDS: Finasteride 5 MG TABLET PO SCH (10:51)
[2017-08-30] MEDS: Beclomethasone 80mcg MDI IH SCH ×2 (10:55→22:41)
[2017-08-30] MEDS: Tiotropium 18 MCG inhalation IH SCH (10:55)
--- NOTE | 2017-08-30 11:21 | Internal Med Progress Note ---
Date of Encounter: 08/30/17 Time of Encounter: 11:12 - Assessment and plan (1) Altered mental status Current Visit: No Status: Acute Assessment and plan: August 30. He appears back to his baseline at present. I suspect he had a left MCA distribution ischemic event. Continue antiplatelet and anticoagulant medications Qualifiers: Altered mental status type: disorientation Qualified Code(s): R41.0 - Disorientation, unspecified (2) DM type 2 (diabetes mellitus, type 2) Current Visit: No Status: Chronic Assessment and plan: August 30. Continue basal insulin and Accu-Cheks with SSI. Qualifiers: Diabetes mellitus moth exterminator insulin use: without moth exterminator use Diabetes mellitus complication status: with kidney complications Diabetes mellitus complication detail: with chronic kidney disease Chronic kidney disease stage : stage 3 (moderate) Qualified Code(s): E11.22 - Type 2 diabetes mellitus with diabetic chronic kidney disease; N18.3 - Chronic kidney disease, stage 3 ( moderate) (3) Chronic atrial fibrillation Current Visit: No Status: Chronic Assessment and plan: August 30. Continue Coumadin. - Subjective Interval history: August 30. He was hospitalized in acute-care August 23- after family found him confused at home. Head CT and MRI showed no significant pathology. Carotid Doppler study showed nonstenotic plaque bilaterally. He was started on Plavix. Aspirin dose was continued but reduced and warfarin was continued. He had therapy intervention and made significant improvement overall. It was felt he would benefit from swing bed stay. He has no new complaints and feels better. - Constitutional Vitals: Temp Pulse Resp BP Pulse Ox 98.4 F 85 16 123/67 94 08/30/17 09:27 08/30/17 09:27 08/30/17 09:27 08/30/17 09:27 08/30/17 09:27 Exam: His affect is bright and cheerful. His conversation and cognition appear back to his baseline from previous admissions. Extremities show no edema. I reviewed his medications and lab results. Internal Medicine: Result - Labs CBC & Chem 7: 08/30/17 05:25 08/30/17 05:25 Labs: Short CBC 08/30/17 Range/Units 05:25 WBC 7.8 (4.3-11.1) K/mcL Hgb 11.6 L (12.9-16.9) g/dL Hct 35.0 L (37.5-50.1) % Plt Count 229 (140-400) K/mcL Neutrophils # 5.0 (1.6-8.9) K/mcL BMP 08/30/17 05:25 Sodium 133 L Potassium 4.4 Chloride 99 Carbon Dioxide 29 BUN 31 H Creatinine 1.26 Glucose 276 H Calcium 8.5 L - ABG Interpretation ABG results: PT/INR, D-dimer PT 27.4 Seconds (9.4-12.1) H 08/30/17 05:25 Consult Discharge Plan - Plan Referrals: Phill Burektt DO [Primary Care Provider] - 1 week
[2017-08-30] MEDS: *HR* Warfarin 5 MG TABLET PO SCH (17:41)
[2017-08-31] MEDS: Insulin LISPRO 300 UNITS/3 ML VIAL SQ SCH ×3 (08:19→17:07)
[2017-08-31] MEDS: *HR* OxyCODONE/APAP 5/325 TABLET PO PRN (08:21)
[2017-08-31] MEDS: *HR* Digoxin 0.125 MG TABLET PO SCH (08:21)
[2017-08-31] MEDS: Cholecalciferol (D-3) 1,000 UNIT TABLET PO SCH (08:22)
[2017-08-31] MEDS: Finasteride 5 MG TABLET PO SCH (08:22)
[2017-08-31] MEDS: Insulin DETEMIR 100 UNIT/ML X5UNITS SQ SCH ×2 (08:51→20:27)
[2017-08-31] MEDS: Tiotropium 18 MCG inhalation IH SCH (12:46)
[2017-08-31] MEDS: Beclomethasone 80mcg MDI IH SCH ×2 (12:46→22:45)
[2017-08-31] MEDS: *HR* Warfarin 5 MG TABLET PO SCH (17:08)
[2017-09-01] MEDS: *HR* OxyCODONE/APAP 5/325 TABLET PO PRN ×3 (03:50→20:46)
[2017-09-01] MEDS: Insulin LISPRO 300 UNITS/3 ML VIAL SQ SCH ×3 (08:03→16:47)
[2017-09-01] MEDS: Cholecalciferol (D-3) 1,000 UNIT TABLET PO SCH (08:05)
[2017-09-01] MEDS: Finasteride 5 MG TABLET PO SCH (08:06)
[2017-09-01] MEDS: *HR* Digoxin 0.125 MG TABLET PO SCH (08:07)
[2017-09-01] MEDS: Aspirin 81 MG TAB.CHEW PO SCH (08:08)
[2017-09-01] MEDS: Insulin DETEMIR 100 UNIT/ML X5UNITS SQ SCH ×2 (08:44→20:46)
[2017-09-01] MEDS: Tiotropium 18 MCG inhalation IH SCH (08:58)
[2017-09-01] MEDS: Beclomethasone 80mcg MDI IH SCH ×2 (09:04→22:18)
--- NOTE | 2017-09-01 12:33 | Internal Med Progress Note ---
Date of Encounter: 09/01/17 Time of Encounter: 12:20 - Assessment and plan (1) Altered mental status Current Visit: No Status: Acute Assessment and plan: September 01. Continue anticoagulant and antiplatelet medications. Qualifiers: Altered mental status type: disorientation Qualified Code(s): R41.0 - Disorientation, unspecified (2) DM type 2 (diabetes mellitus, type 2) Current Visit: No Status: Chronic Assessment and plan: September 01. Continue basal insulin and Accu-Cheks with SSI. Qualifiers: Diabetes mellitus termite treater helper insulin use: without nursing home use Diabetes mellitus complication status: with kidney complications Diabetes mellitus complication detail: with chronic kidney disease Chronic kidney disease stage : stage 3 (moderate) Qualified Code(s): E11.22 - Type 2 diabetes mellitus with diabetic chronic kidney disease; N18.3 - Chronic kidney disease, stage 3 ( moderate) (3) Chronic atrial fibrillation Current Visit: No Status: Chronic Assessment and plan: September 01. Continue Coumadin - Subjective Interval history: August 30. He was hospitalized in acute-care August 23- after family found him confused at home. Head CT and MRI showed no significant pathology. Carotid Doppler study showed nonstenotic plaque bilaterally. He was started on Plavix. Aspirin dose was continued but reduced and warfarin was continued. He had therapy intervention and made significant improvement overall. It was felt he would benefit from swing bed stay. He has no new complaints and feels better. September 01. He has no new complaints. - Constitutional Vitals: Temp Pulse Resp BP Pulse Ox 97.8 F 97 15 134/98 92 09/01/17 07:24 09/01/17 07:24 09/01/17 09:06 09/01/17 07:24 09/01/17 09:06 Exam: He is sitting in a chair at bedside resting comfortably. He complaints of headache. Heart is irregularly irregular with rate approximately 104/m. Lungs are clear. Extremities show no edema. Internal Medicine: Result - Labs CBC & Chem 7: 08/30/17 05:25 08/30/17 05:25 - ABG Interpretation ABG results: PT/INR, D-dimer PT 27.4 Seconds (9.4-12.1) H 08/30/17 05:25 Consult Discharge Plan - Plan Referrals: Phill Burkett DO [Primary Care Provider] - 1 week
[2017-09-01] MEDS: *HR* Warfarin 5 MG TABLET PO SCH (16:47)
[2017-09-01] MEDS: valACYclovir 500 MG TABLET PO SCH (20:45)
[2017-09-02 06:05] LABS: Basophils % 0.5 %; Eosinophils # 0.2 K/mcL (0.0-0.6); Eosinophils % 2.1 %; Hematocrit 39.4 % (37.5-50.1); Hemoglobin 13.2 g/dL (12.9-16.9); Immature Granulocytes % 0.5 % (0-4); Lymphocytes # 1.4 K/mcL (0.6-4.6); Lymphocytes % 17.8 %; Mean Corpuscular HGB Conc 33.5 g/dL (31.6-35.5); Mean Corpuscular Hemoglobin 30.1 pg (28.0-33.3); Mean Platelet Volume 11.4 fL (9.4-12.4); Monocytes # 0.8 K/mcL (0.0-1.3); Monocytes % 10.9 %; Neutrophils # 5.2 K/mcL (1.6-8.9); Platelet Count 298 K/mcL (140-400); Red Blood Count 4.38 M/mcL (4.19-5.50); Red Cell Distribution Width 13.1 % (11.5-14.5); Segmented Neutrophils % 68.2 %
[2017-09-02 06:16] LABS: INR 2.2; Prothrombin Time 23.9 Seconds (9.4-12.1)
[2017-09-02 07:40] LABS: BUN/Creatinine Ratio 22 (6-26); Blood Urea Nitrogen 27 mg/dL (8-23); Calcium 9.1 mg/dL (8.6-10.3); Carbon Dioxide 30 mEq/L (23-29); Chloride 99 mEq/L (98-107); Digoxin 0.3 ng/mL (0.8-2.0); Glucose 228 mg/dL (70-105); Osmolality,Calculated 294 (280-300); Potassium 4.3 mEq/L (3.5-5.1); Sodium 136 mEq/L (136-145); eGFR For African Americans > 60 (> 60); eGFR For Non-African Americans 55 (> 60)
[2017-09-02] MEDS: *HR* Digoxin 0.125 MG TABLET PO SCH (08:52)
[2017-09-02] MEDS: Insulin DETEMIR 100 UNIT/ML X5UNITS SQ SCH ×2 (08:52→20:51)
[2017-09-02] MEDS: Finasteride 5 MG TABLET PO SCH (08:52)
[2017-09-02] MEDS: Insulin LISPRO 300 UNITS/3 ML VIAL SQ SCH ×3 (08:52→17:10)
[2017-09-02] MEDS: Cholecalciferol (D-3) 1,000 UNIT TABLET PO SCH (08:53)
[2017-09-02] MEDS: valACYclovir 500 MG TABLET PO SCH ×2 (08:55→20:48)
[2017-09-02] MEDS: Tiotropium 18 MCG inhalation IH SCH (09:45)
[2017-09-02] MEDS: Beclomethasone 80mcg MDI IH SCH ×2 (09:46→21:54)
[2017-09-02] MEDS: *HR* Warfarin 5 MG TABLET PO SCH (17:11)
[2017-09-03 07:07] VITALS: BP 154/65
[2017-09-03] MEDS: valACYclovir 500 MG TABLET PO SCH (07:58)
[2017-09-03] MEDS: Finasteride 5 MG TABLET PO SCH (07:59)
[2017-09-03] MEDS: *HR* Digoxin 0.125 MG TABLET PO SCH (07:59)
[2017-09-03] MEDS: Cholecalciferol (D-3) 1,000 UNIT TABLET PO SCH (07:59)
[2017-09-03] MEDS: Insulin LISPRO 300 UNITS/3 ML VIAL SQ SCH (07:59)
[2017-09-03] MEDS: Aspirin 81 MG TAB.CHEW PO SCH (07:59)
[2017-09-03] MEDS: Insulin DETEMIR 100 UNIT/ML X5UNITS SQ SCH (09:43)
--- NOTE | 2017-09-03 10:11 | Discharge Summary ---
Date of Encounter: 09/03/17 Time of Encounter: 10:00 - Discharge Diagnosis (1) Altered mental status Priority: Primary Status: Acute Qualifiers: Altered mental status type: disorientation Qualified Code(s): R41.0 - Disorientation, unspecified (2) DM type 2 (diabetes mellitus, type 2) Priority: Secondary Status: Chronic Qualifiers: Diabetes mellitus technician terminal and repeater insulin use: without assisted use Diabetes mellitus complication status: with kidney complications Diabetes mellitus complication detail: with chronic kidney disease Chronic kidney disease stage : stage 3 (moderate) Qualified Code(s): E11.22 - Type 2 diabetes mellitus with diabetic chronic kidney disease; N18.3 - Chronic kidney disease, stage 3 ( moderate) (3) Chronic atrial fibrillation Priority: Secondary Status: Chronic Hospital course: Mr. Huston is a 87 year old male who was hospitalized in acute-care August 23 after family found him confused at home. Head CT and MRI showed no significant pathology. Carotid Doppler study showed nonstenotic plaque bilaterally. He was started on Plavix. Aspirin dose was continued but reduced and warfarin was continued. He had therapy intervention and made significant improvement overall. It was felt he would benefit from swing bed stay. He progressed satisfactorily in swing bed with therapy. His anticoagulant and antiplatelet medications were continued and he generally maintained satisfactory cognition with rare sporadic episodes of slight confusion. He will continue anticoagulant and antiplatelet medications at discharge. Basal insulin was adjusted to improve blood sugar control and he will continue high-dose Levemir at discharge. 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 He was started on valacyclovir and this will continue for 5 additional days at discharge. On September 03 arrangements were complete for him to be discharged home. He will follow with his PCP Dr. Burkett within 1 week. - Time Spent with Patient Total time spent providing and/or coordinating discharge services: - Discharge Medications Prescriptions: Clopidogrel [Plavix] 75 mg PO DAILY #30 tablet Finasteride [Proscar] 5 mg PO DAILY #30 tablet Tamsulosin [Flomax] 0.4 mg PO DAILY #30 capsule valACYclovir [Valtrex] 1,000 mg PO Q12H #10 tablet Home Medications: Albuterol Sulfate [Albuterol Inhaler] 2 puff IH QID PRN 07/30/15 [History] Duloxetine HCl [Cymbalta] 60 mg PO DAILY 07/30/15 [History] Fluticasone Propionate [Flovent Diskus] 250 mcg IH BID 07/30/15 [History] Omeprazole [PriLOSEC] 20 mg PO DAILY 07/30/15 [History] Tiotropium [Spiriva] 18 mcg IH QDPC 07/30/15 [History] Atorvastatin [Lipitor] 20 mg PO HS 09/19/16 [History] Carvedilol [Coreg] 25 mg PO BID 09/19/16 [History] Cholecalciferol (Vitamin D3) [Vitamin D3] 1,000 unit PO QAM 09/19/16 [History] Docusate [Colace] 100 mg PO DAILY PRN 09/19/16 [History] Digoxin [Lanoxin] 0.125 mg PO DAILY #30 tablet 09/22/16 [Rx] Lisinopril [Zestril] 5 mg PO DAILY 11/28/16 [History] Potassium Chloride [K-Tab ER] 10 meq PO DAILY #0 12/09/16 [Rx] Acetaminophen [Tylenol] 500 mg PO Q6HR PRN 12/11/16 [History] Warfarin [Coumadin] 5 mg PO DAILY 12/11/16 [History] Insulin LISPRO [HumaLOG] 5 units SQ TIDAC 30 Days vial 12/13/16 [Rx] Aspirin 81 mg PO Q48H #0 08/29/17 [Rx] Clopidogrel [Plavix] 75 mg PO DAILY #30 tablet 09/03/17 [Rx] Finasteride [Proscar] 5 mg PO DAILY #30 tablet 09/03/17 [Rx] Insulin DETEMIR [Levemir] 18 unit SQ BID [id number] 09/03/17 [Rx] Tamsulosin [Flomax] 0.4 mg PO DAILY #30 capsule 09/03/17 [Rx] valACYclovir [Valtrex] 1,000 mg PO Q12H #10 tablet 09/03/17 [Rx] Allergies/Adverse Reactions: 3 Allergy/AdvReac Type Severity Reaction Status Date / Time gabapentin AdvReac See Verified 08/23/17 17:17 Comments metformin [From Glucophage] AdvReac See Verified 08/23/17 17:17 Comments Date of admission: 08/29/17 13:45 Primary care physician: Phill Burkett DO Consults: 08/29/17 14:59 Consult to Occupational Therapy [CONS] Routine Comment: eval, develop, and implement plan of care Reason for Consult: eval, develop, and implement plan of care Consult to Physical Therapy [CONS] Routine Comment: eval, develop, and implement plan of care Reason for Consult: eval, develop, and implement plan of care Consult to Kiln Burner Helper [CONS] Routine Reason for SW Consult: possible HH on discharge - Constitutional Vitals: Temp Pulse Resp BP Pulse Ox 97.5 F L 86 16 154/65 96 09/03/17 07:04 09/03/17 07:04 09/03/17 07:04 09/03/17 07:04 09/03/17 07:04 - Patient Status Disposition: Home, Self-Care Functional capacity at discharge: uses cane/walker Overall status at discharge: patient is progressing back to baseline - Discharge Instructions Follow Up With: Phill Burkett DO [Primary Care Provider] - 1 week - Diet and Activity Activity: as per physical therapy, resume usual activities as tolerated Diet: diabetic diet
--- NOTE | 2017-09-03 10:27 | Physician Discharge Referral ---
Home Health/Hosp Referral Info Transfer to: Home Health Attending Provider: Que Provider in Charge Post Discharge: PCP (Madelaine) - Diagnosis (1) Altered mental status Priority: Primary Status: Acute (2) DM type 2 (diabetes mellitus, type 2) Priority: Secondary Status: Chronic (3) Chronic atrial fibrillation Priority: Secondary Status: Chronic - Respiratory Orders Oxygen / L per min (2 L/m by nasal cannula when necessary to keep sat greater than 90%.) Smoking Cessation: Smoking cessation has been advised. For more information, call the [place] Tobacco Quit Line at 2-628-JQJS-NOW. - Diet/Nutrition Diet/Nutrition Orders: No Concentrated Sweets - Activity Activity Orders: Walker - Services Needed Following services are medically necessary services: Nursing, Home Health Aide, Physical Therapy, Occupational Therapy - Transfer Medications Prescriptions: Clopidogrel [Plavix] 75 mg PO DAILY #30 tablet Finasteride [Proscar] 5 mg PO DAILY #30 tablet Tamsulosin [Flomax] 0.4 mg PO DAILY #30 capsule valACYclovir [Valtrex] 1,000 mg PO Q12H #10 tablet Home Medications: Albuterol Sulfate [Albuterol Inhaler] 2 puff IH QID PRN 07/30/15 [History] Duloxetine HCl [Cymbalta] 60 mg PO DAILY 07/30/15 [History] Fluticasone Propionate [Flovent Diskus] 250 mcg IH BID 07/30/15 [History] Omeprazole [PriLOSEC] 20 mg PO DAILY 07/30/15 [History] Tiotropium [Spiriva] 18 mcg IH QDPC 07/30/15 [History] Atorvastatin [Lipitor] 20 mg PO HS 09/19/16 [History] Carvedilol [Coreg] 25 mg PO BID 09/19/16 [History] Cholecalciferol (Vitamin D3) [Vitamin D3] 1,000 unit PO QAM 09/19/16 [History] Docusate [Colace] 100 mg PO DAILY PRN 09/19/16 [History] Digoxin [Lanoxin] 0.125 mg PO DAILY #30 tablet 09/22/16 [Rx] Lisinopril [Zestril] 5 mg PO DAILY 11/28/16 [History] Potassium Chloride [K-Tab ER] 10 meq PO DAILY #0 12/09/16 [Rx] Acetaminophen [Tylenol] 500 mg PO Q6HR PRN 12/11/16 [History] Warfarin [Coumadin] 5 mg PO DAILY 12/11/16 [History] Insulin LISPRO [HumaLOG] 5 units SQ TIDAC 30 Days vial 12/13/16 [Rx] Aspirin 81 mg PO Q48H #0 08/29/17 [Rx] Clopidogrel [Plavix] 75 mg PO DAILY #30 tablet 09/03/17 [Rx] Finasteride [Proscar] 5 mg PO DAILY #30 tablet 09/03/17 [Rx] Insulin DETEMIR [Levemir] 18 unit SQ BID [id number] 09/03/17 [Rx] Tamsulosin [Flomax] 0.4 mg PO DAILY #30 capsule 09/03/17 [Rx] valACYclovir [Valtrex] 1,000 mg PO Q12H #10 tablet 09/03/17 [Rx] Allergies/Adverse Reactions: 3 Allergy/AdvReac Type Severity Reaction Status Date / Time gabapentin AdvReac See Verified 08/23/17 17:17 Comments metformin [From Glucophage] AdvReac See Verified 08/23/17 17:17 Comments Certification: Further, I certify that my clinical findings support that this patient is homebound (i.e. absences from home require considerable and taxing effort and are for medical reasons or amish services or infrequently or short duration when for other reasons) because: Homebound Reason: Leaving home requires considerable and taxing effort due to condition (Impaired ambulatory ability, dyspnea on exertion) Attestation: My signature below is to certify that this patient is under my care and that I, or nurse practitioner, or a physician's trade sales assistant working with me, has a face-to -face encounter with this patient.
[2017-09-03] MEDS: Beclomethasone 80mcg MDI IH SCH (11:06)
[2017-09-03] MEDS: Tiotropium 18 MCG inhalation IH SCH (11:06)
== END 2017-09-03 12:15 | disposition home health service (06) | DRG 945 ==
LOC: INPPIK 13:45
PROVIDERS: ADMIT Internal Medicine; ATTEND Internal Medicine